=== PATIENT | female | born 1945 | race Caucasian/White ===

== ENCOUNTER 2019-12-08 13:43 | Outpatient (CLI) | payer MEDICARE, OTHER, SELFPAY ==
--- NOTE | ~2019-12-08 | US_ITS ---
EXAMINATION: US renal BI EXAM DATE: 12/08/2019 14:23 INDICATION: Stage III chronic kidney disease. TECHNIQUE: Multiple grayscale and Doppler images of the kidneys were obtained (by a technologist who performed the scan) and subsequently reviewed. Comparison is made to prior examination from 4. FINDINGS: There is bilateral renal cortical thinning. Right kidney: There is normal contour and echogenicity. It measures 7.1 x 4.1 x 4.7 centimeters. Th ere are no focal renal lesions identified. There is no hydronephrosis. Left kidney: There is normal contour and echogenicity. It measures 5.5 x 3.7 x 4.0 centimeters. The re are no focal renal lesions identified. There is no hydronephrosis. Bladder unremarkable. IMPRESSION: 1. Moderate renal atrophy, interval decrease in size compared to 2013. Reviewed, dictated and finalized at location A.
== END 2019-12-08 13:44 | disposition home or self-care (01) ==
PROVIDERS: PCP Family Medicine; Visit Provider Internal Medicine Nephrology
DX: N18.3 Chronic kidney disease, stage 3 (moderate) (principal); E78.5 Hyperlipidemia, unspecified; E11.9 Type 2 diabetes mellitus without complications; I10 Essential (primary) hypertension; N26.1 Atrophy of kidney (terminal)
CPT/HCPCS: 76775

== ENCOUNTER 2020-01-01 09:32 | Outpatient (CLI) | payer MEDICARE, OTHER, SELFPAY ==
[2020-01-01 11:23] LABS: Albumin Level 3.9 g/dL (3.5-5.1); Blood Urea Nitrogen 37 mg/dL (7-17); CRP < 0.5 mg/dL (<1.0); Calcium 9.3 mg/dL (8.4-10.2); Carbon Dioxide 27 mmol/L (22-30); Chloride 106 mmol/L (98-107); Estimated Glomerular Filt Rate 49; Glucose 92 mg/dL (65-105); Magnesium 1.7 mg/dL (1.6-2.3); Potassium 4.8 mmol/L (3.4-5.0); Sodium 138 mmol/L (137-145)
[2020-01-01 11:26] LABS: Complement C3 129 mg/dL (88-165)
[2020-01-01 11:48] LABS: Parathyroid Intact 142.4 pg/mL (7.5-53.5)
[2020-01-01 11:50] LABS: Creatinine Urine 58.6 mg/dL; Total Protein Urine Random 16 mg/dL
[2020-01-01 11:53] LABS: MALB Creatinine Ratio 85.8 mg/g (0-30); Microalbumin Urine Random 50.3 mg/L (0-16.7)
[2020-01-01 12:06] LABS: Vitamin D 25 Hydroxy 46.4 ng/mL
[2020-01-01 12:14] LABS: Erythrocyte Sedimentation Rate 55 mm/hr (0-20)
[2020-01-01 12:17] LABS: Hepatitis B Surface Antigen Negative (Negative)
[2020-01-01 12:23] LABS: HAV RESULT Negative (Negative); Hepatitis B Core IgM Result Negative (Negative)
[2020-01-01 12:35] LABS: Hepatitis B Surface Anti Res Negative; Hepatitis C Virus Antibody Negative (Negative)
[2020-01-05 00:20] LABS: Kappa\\Lambda Light Chains 1.08 (0.26-1.65); Lambda Light Chain 20.9 mg/L (5.7-26.3)
[2020-01-05 20:38] LABS: Complement Total CH50 60 U/mL (31-60)
[2020-01-05 21:40] LABS: Abnormal Protein Band 1 0.3 g/dL; Albumin 3.6 g/dL (3.8-4.8); Alpha 1 Globulin 0.3 g/dL (0.2-0.3); Alpha 2 Globulin 0.9 g/dL (0.5-0.9); Beta 1 Globulin 0.4 g/dL (0.4-0.6); Gamma Globulin 0.9 g/dL (0.8-1.7); Protein, Total 6.4 g/dL (6.1-8.1)
[2020-01-07 21:18] LABS: Hepatitis C RNA, Quant PCR <15 IU/mL
== END 2020-01-01 09:33 | disposition home or self-care (01) ==
LOC: ANHLAB 09:47
PROVIDERS: PCP Family Medicine; Visit Provider Internal Medicine Nephrology
DX: E78.5 Hyperlipidemia, unspecified (principal); N39.0 Urinary tract infection, site not specified; I77.6 Arteritis, unspecified; N25.0 Renal osteodystrophy; E55.9 Vitamin D deficiency, unspecified; I10 Essential (primary) hypertension; E11.9 Type 2 diabetes mellitus without complications; M19.90 Unspecified osteoarthritis, unspecified site
CPT/HCPCS: 36415; 80069; 80074; 82043; 82306; 82570; 83735; 83883; 83970; 84155; 84156; 84165; 85652; 86140; 86160; 86162; 86706; 87077; 87086; 87088; 87186; 87340; 87522

== ENCOUNTER 2020-01-19 13:10 | Outpatient (CLI) | payer MEDICARE, OTHER, SELFPAY ==
[2020-01-19 13:57] LABS: Basophils Percent Auto 0.6 % (0.2-1.2); Eosinophils Absolute Auto 0.2 K/mm3 (0-0.3); Eosinophils Percent Auto 3.2 % (0-4.4); Hematocrit 39.9 % (37.0-47.0); Immature Granulocyte Absolute 0.02 K/mm3 (0.00-0.031); Immature Granulocyte Percent A 0.3 % (0-0.5); Lymphocytes Absolute Auto 2.09 K/mm3 (0.9-3.2); Lymphocytes Percent Auto 30.7 % (18.3-44.2); Mean Corpuscular HGB Conc 32.6 g/dl (32-36); Mean Corpuscular Hemoglobin 32.7 pg (26-34); Mean Corpuscular Volume 100.5 fl (80-100); Mean Platelet Volume 10.3 fl (7.4-10.4); Monocytes Absolute Auto 0.5 K/mm3 (0.1-0.6); Monocytes Percent Auto 7.9 % (2.6-8.5); Neutrophils Absolute Auto 3.9 K/mm3 (1.3-6.7); Neutrophils Percent Auto 57.3 % (45.5-73.1); Platelet Count Result 160 k/mm3 (150-375); Red Blood Count 3.97 M/mm3 (4.2-5.4); Red Cell Distribution Width 13.2 % (11.5-14.5); White Blood Count 6.8 K/mm3 (4.5-10.0)
[2020-01-19 14:10] LABS: Alanine Aminotransferase 15 U/L (4-35); Albumin Level 4.1 g/dL (3.5-5.1); Alkaline Phosphatase 139 U/L (38-126); Aspartate Amino Transferase 26 U/L (14-36); Bilirubin,Total 0.3 mg/dL (0.2-1.3); Blood Urea Nitrogen 41 mg/dL (7-17); Calcium 9.5 mg/dL (8.4-10.2); Carbon Dioxide 28 mmol/L (22-30); Chloride 104 mmol/L (98-107); Estimated Glomerular Filt Rate 40; Glucose 107 mg/dL (65-105); Phosphorus 3.3 mg/dL (2.5-4.5); Potassium 5.1 mmol/L (3.4-5.0); Sodium 138 mmol/L (137-145)
[2020-01-19 14:18] LABS: Immunoglobulin A 165 mg/dL (70-400); Immunoglobulin G 876 mg/dL (700-1600); Immunoglobulin M 169 mg/dL (40-230)
[2020-01-23 04:00] LABS: Kappa\\Lambda Light Chains 1.13 (0.26-1.65); Lambda Light Chain 23.4 mg/L (5.7-26.3)
[2020-01-24 22:36] LABS: Abnormal Protein Band 1 0.2 g/dL; Albumin 3.6 g/dL (3.8-4.8); Alpha 1 Globulin 0.3 g/dL (0.2-0.3); Alpha 2 Globulin 0.9 g/dL (0.5-0.9); Beta 1 Globulin 0.4 g/dL (0.4-0.6); Gamma Globulin 0.8 g/dL (0.8-1.7); Protein, Total 6.2 g/dL (6.1-8.1)
== END 2020-01-19 13:11 | disposition home or self-care (01) ==
PROVIDERS: PCP Family Medicine; Visit Provider Internal Medicine Hematology & Oncology
DX: D47.2 Monoclonal gammopathy (principal)
CPT/HCPCS: 36415; 80053; 82784; 83735; 83883; 84100; 84155; 84165; 85025; 86334

== ENCOUNTER 2020-04-08 11:49 | Outpatient (NON) | payer MEDICARE, OTHER, SELFPAY ==
[2020-04-09 03:01] LABS: SARS-CoV-2 RNA PCR Negative
== END 2020-04-08 11:50 ==
PROVIDERS: PCP Family Medicine; Visit Provider Nurse Practitioner Family
DX: Z20.828 Contact with and (suspected) exposure to other viral communicable diseases (principal); R05 Cough
CPT/HCPCS: 87635; C9803; U0003

== ENCOUNTER 2020-06-11 13:15 | Outpatient (CLI) | payer MEDICARE, OTHER, SELFPAY ==
[2020-06-11 14:16] LABS: Albumin Level 3.8 g/dL (3.5-5.1); Anion Gap 6 mmol/L (8-16); Blood Urea Nitrogen 34 mg/dL (7-17); Calcium 9.9 mg/dL (8.4-10.2); Carbon Dioxide 32 mmol/L (22-30); Chloride 101 mmol/L (98-107); Estimated Glomerular Filt Rate 44; Glucose 93 mg/dL (65-105); Magnesium 1.8 mg/dL (1.6-2.3); Phosphorus 3.4 mg/dL (2.5-4.5); Potassium 4.6 mmol/L (3.4-5.0); Sodium 139 mmol/L (137-145)
[2020-06-11 14:31] LABS: Parathyroid Intact 139.7 pg/mL (7.5-53.5)
[2020-06-11 14:58] LABS: Creatinine Urine 66.4 mg/dL; Total Protein Urine Random 15 mg/dL; Ur Ttl Prot Creatinine Ratio 0.23 mg/mg (0-0.20)
[2020-06-11 15:04] LABS: MALB Creatinine Ratio 76.8 mg/g (0-30)
[2020-06-11 15:15] LABS: Vitamin D 25 Hydroxy 41.2 ng/mL
== END 2020-06-11 13:16 | disposition home or self-care (01) ==
PROVIDERS: PCP Family Medicine; Visit Provider Internal Medicine Nephrology
DX: E78.5 Hyperlipidemia, unspecified (principal); N25.0 Renal osteodystrophy; E55.9 Vitamin D deficiency, unspecified; Z01.84 Encounter for antibody response examination
CPT/HCPCS: 36415; 80069; 82043; 82306; 82570; 83735; 83970; 84156; 86769

== ENCOUNTER 2020-08-02 14:02 | Outpatient (CLI) | payer MEDICARE, OTHER, SELFPAY ==
[2020-08-02 15:42] LABS: Basophils Absolute Auto 0.1 K/mm3 (0.0-0.1); Basophils Percent Auto 0.6 % (0.2-1.2); Eosinophils Absolute Auto 0.2 K/mm3 (0-0.3); Eosinophils Percent Auto 2.9 % (0-4.4); Hematocrit 39.3 % (37.0-47.0); Hemoglobin 13.3 g/dL (12.0-15.0); Immature Granulocyte Absolute 0.02 K/mm3 (0.00-0.031); Immature Granulocyte Percent A 0.2 % (0-0.5); Lymphocytes Absolute Auto 2.35 K/mm3 (0.9-3.2); Lymphocytes Percent Auto 27.9 % (18.3-44.2); Mean Corpuscular HGB Conc 33.8 g/dl (32-36); Mean Corpuscular Hemoglobin 33.3 pg (26-34); Mean Corpuscular Volume 98.3 fl (80-100); Mean Platelet Volume 10.7 fl (7.4-10.4); Monocytes Absolute Auto 0.6 K/mm3 (0.1-0.6); Monocytes Percent Auto 7.5 % (2.6-8.5); Neutrophils Absolute Auto 5.1 K/mm3 (1.3-6.7); Neutrophils Percent Auto 60.9 % (45.5-73.1); Platelet Count Result 184 k/mm3 (150-375); Red Cell Distribution Width 12.4 % (11.5-14.5); White Blood Count 8.4 K/mm3 (4.5-10.0)
[2020-08-02 15:47] LABS: Alanine Aminotransferase 24 U/L (4-35); Alkaline Phosphatase 144 U/L (38-126); Anion Gap 6 mmol/L (8-16); Aspartate Amino Transferase 35 U/L (14-36); Bilirubin,Total 0.4 mg/dL (0.2-1.3); Blood Urea Nitrogen 32 mg/dL (7-17); Calcium 9.9 mg/dL (8.4-10.2); Carbon Dioxide 31 mmol/L (22-30); Chloride 102 mmol/L (98-107); Estimated Glomerular Filt Rate 44; Glucose 106 mg/dL (65-105); Potassium 4.2 mmol/L (3.4-5.0); Sodium 139 mmol/L (137-145)
[2020-08-02 15:54] LABS: Immunoglobulin A 168 mg/dL (70-400); Immunoglobulin G 896 mg/dL (700-1600); Immunoglobulin M 173 mg/dL (40-230)
[2020-08-04 00:46] LABS: Kappa\\Lambda Light Chains 1.07 (0.26-1.65); Lambda Light Chain 24.5 mg/L (5.7-26.3)
[2020-08-06 00:05] LABS: Albumin 3.8 g/dL (3.8-4.8); Alpha 1 Globulin 0.4 g/dL (0.2-0.3); Alpha 2 Globulin 1.1 g/dL (0.5-0.9); Beta 1 Globulin 0.4 g/dL (0.4-0.6); Protein, Total 7.1 g/dL (6.1-8.1)
== END 2020-08-02 14:03 | disposition home or self-care (01) ==
PROVIDERS: PCP Family Medicine; Visit Provider Internal Medicine Hematology & Oncology
DX: D47.2 Monoclonal gammopathy (principal)
CPT/HCPCS: 36415; 80053; 82784; 83883; 84155; 84165; 85025; 86334

== ENCOUNTER 2020-09-30 12:09 | Outpatient (CLI) | payer MEDICARE, OTHER, SELFPAY ==
[2020-09-30 12:50] LABS: Basophils Percent Auto 0.3 % (0.2-1.2); Eosinophils Absolute Auto 0.2 K/mm3 (0-0.3); Hematocrit 40.3 % (37.0-47.0); Hemoglobin 13.5 g/dL (12.0-15.0); Immature Granulocyte Absolute 0.03 K/mm3 (0.00-0.031); Immature Granulocyte Percent A 0.3 % (0-0.5); Lymphocytes Absolute Auto 2.21 K/mm3 (0.9-3.2); Lymphocytes Percent Auto 25.5 % (18.3-44.2); Mean Corpuscular HGB Conc 33.5 g/dl (32-36); Mean Corpuscular Hemoglobin 33.6 pg (26-34); Mean Corpuscular Volume 100.2 fl (80-100); Mean Platelet Volume 10.7 fl (7.4-10.4); Monocytes Absolute Auto 0.7 K/mm3 (0.1-0.6); Monocytes Percent Auto 7.6 % (2.6-8.5); Neutrophils Absolute Auto 5.6 K/mm3 (1.3-6.7); Neutrophils Percent Auto 64.3 % (45.5-73.1); Platelet Count Result 157 k/mm3 (150-375); Red Blood Count 4.02 M/mm3 (4.2-5.4); Red Cell Distribution Width 12.4 % (11.5-14.5); White Blood Count 8.7 K/mm3 (4.5-10.0)
[2020-09-30 13:03] LABS: Albumin Level 4.1 g/dL (3.5-5.1); Anion Gap 4 mmol/L (8-16); Blood Urea Nitrogen 27 mg/dL (7-17); Calcium 9.9 mg/dL (8.4-10.2); Carbon Dioxide 33 mmol/L (22-30); Chloride 105 mmol/L (98-107); Estimated Glomerular Filt Rate 40; Glucose 116 mg/dL (65-105); Magnesium 1.8 mg/dL (1.6-2.3); Phosphorus 2.9 mg/dL (2.5-4.5); Potassium 5.8 mmol/L (3.4-5.0); Sodium 142 mmol/L (137-145)
[2020-09-30 13:13] LABS: Parathyroid Intact 166.2 pg/mL (7.5-53.5)
[2020-09-30 14:02] LABS: Vitamin D 25 Hydroxy 42.2 ng/mL
[2020-09-30 14:06] LABS: Creatinine Urine 33.3 mg/dL
[2020-09-30 14:11] LABS: MALB Creatinine Ratio 131.8 mg/g (0-30); Microalbumin Urine Random 43.9 mg/L (0-16.7)
== END 2020-09-30 12:10 | disposition home or self-care (01) ==
LOC: ANHLAB 12:14
PROVIDERS: PCP Family Medicine; Visit Provider Internal Medicine Nephrology
DX: E55.9 Vitamin D deficiency, unspecified (principal); D63.1 Anemia in chronic kidney disease; N25.0 Renal osteodystrophy
CPT/HCPCS: 36415; 80069; 82043; 82306; 83735; 83970; 85025

== ENCOUNTER 2020-11-23 12:57 | Outpatient (CLI) | payer MEDICARE, OTHER, SELFPAY ==
[2020-11-23 13:44] LABS: Albumin Level 3.9 g/dL (3.5-5.1); Anion Gap 4 mmol/L (8-16); Blood Urea Nitrogen 23 mg/dL (7-17); Calcium 9.7 mg/dL (8.4-10.2); Carbon Dioxide 32 mmol/L (22-30); Chloride 105 mmol/L (98-107); Estimated Glomerular Filt Rate 44; Glucose 112 mg/dL (65-105); Magnesium 1.6 mg/dL (1.6-2.3); Phosphorus 3.1 mg/dL (2.5-4.5); Potassium 4.4 mmol/L (3.4-5.0); Sodium 141 mmol/L (137-145)
== END 2020-11-23 12:58 | disposition home or self-care (01) ==
PROVIDERS: PCP Family Medicine; Visit Provider Internal Medicine Nephrology
DX: I12.9 Hypertensive chronic kidney disease with stage 1 through stage 4 chronic kidney disease, or unspecified chronic kidney disease (principal); N18.32 Chronic kidney disease, stage 3b; E78.5 Hyperlipidemia, unspecified; M19.90 Unspecified osteoarthritis, unspecified site; D47.2 Monoclonal gammopathy; E11.22 Type 2 diabetes mellitus with diabetic chronic kidney disease
CPT/HCPCS: 36415; 80069; 83735

== ENCOUNTER 2021-05-05 13:29 | Outpatient (CLI) | payer MEDICARE, OTHER, SELFPAY ==
[2021-05-05 14:29] LABS: Albumin Level 3.9 g/dL (3.5-5.1); Anion Gap 7 mmol/L (8-16); Blood Urea Nitrogen 27 mg/dL (7-17); Carbon Dioxide 30 mmol/L (22-30); Chloride 103 mmol/L (98-107); Estimated Glomerular Filt Rate 44; Glucose 119 mg/dL (65-110); Magnesium 1.7 mg/dL (1.6-2.3); Phosphorus 3.3 mg/dL (2.5-4.5); Sodium 140 mmol/L (137-145)
== END 2021-05-05 13:30 | disposition home or self-care (01) ==
LOC: ANHLAB 13:34
PROVIDERS: PCP Family Medicine; Visit Provider Internal Medicine Nephrology
DX: I10 Essential (primary) hypertension (principal); E11.9 Type 2 diabetes mellitus without complications; E78.5 Hyperlipidemia, unspecified; M19.90 Unspecified osteoarthritis, unspecified site; D47.2 Monoclonal gammopathy; N18.32 Chronic kidney disease, stage 3b
CPT/HCPCS: 36415; 80069; 83735

== ENCOUNTER 2021-05-18 13:40 | Outpatient (CLI) | payer MEDICARE, OTHER, SELFPAY | END 2021-05-18 13:41 | disposition home or self-care (01) | LOC: ANHAUDIO 13:41 | PROVIDERS: PCP Family Medicine; Visit Provider Physician Assistant Medical | DX: H91.93 Unspecified hearing loss, bilateral (principal) | CPT/HCPCS: 99199 ==

== ENCOUNTER 2021-11-06 13:13 | Outpatient (CLI) | payer MEDICARE, OTHER, SELFPAY ==
[2021-11-06 14:14] LABS: Hematocrit 39.3 % (37.0-47.0); Hemoglobin 13.2 g/dL (12.0-15.0); Mean Corpuscular HGB Conc 33.6 g/dl (32-36); Mean Corpuscular Hemoglobin 33.8 pg (26-34); Mean Corpuscular Volume 100.5 fl (80-100); Mean Platelet Volume 12.1 fl (7.4-10.4); Platelet Count Result 152 k/mm3 (150-375); Red Blood Count 3.91 M/mm3 (4.2-5.4); Red Cell Distribution Width 13.1 % (11.5-14.5); White Blood Count 7.2 K/mm3 (4.5-10.0)
[2021-11-06 14:25] LABS: Albumin Level 4.2 g/dL (3.5-5.1); Anion Gap 6 mmol/L (8-16); Blood Urea Nitrogen 29 mg/dL (7-17); Calcium 9.9 mg/dL (8.4-10.2); Carbon Dioxide 31 mmol/L (22-30); Chloride 103 mmol/L (98-107); Estimated Glomerular Filt Rate 44; Glucose 108 mg/dL (65-110); Magnesium 1.4 mg/dL (1.6-2.3); Phosphorus 3.5 mg/dL (2.5-4.5); Potassium 4.9 mmol/L (3.4-5.0); Sodium 140 mmol/L (137-145)
[2021-11-06 14:27] LABS: Creatinine Urine 87.9 mg/dL; Total Protein Urine Random 20 mg/dL; Ur Ttl Prot Creatinine Ratio 0.23 mg/mg (0-0.20)
[2021-11-06 14:31] LABS: MALB Creatinine Ratio 67.5 mg/g (0-30); Microalbumin Urine Random 59.3 mg/L (0-16.7)
[2021-11-06 14:43] LABS: Vitamin D 25 Hydroxy 44.7 ng/mL
== END 2021-11-06 13:14 | disposition home or self-care (01) ==
LOC: ANHLAB 13:18
PROVIDERS: PCP Family Medicine; Visit Provider Internal Medicine Nephrology
DX: N18.32 Chronic kidney disease, stage 3b (principal); I25.84 Coronary atherosclerosis due to calcified coronary lesion; I10 Essential (primary) hypertension; E11.22 Type 2 diabetes mellitus with diabetic chronic kidney disease; E78.00 Pure hypercholesterolemia, unspecified; D47.2 Monoclonal gammopathy
CPT/HCPCS: 36415; 80069; 82043; 82306; 82570; 82607; 83735; 84156; 85027

== ENCOUNTER 2022-02-13 15:23 | Outpatient (CLI) | payer MEDICARE, OTHER, SELFPAY ==
[2022-02-13 21:35] LABS: Albumin Level 4.5 g/dL (3.5-5.1); Anion Gap 10 mmol/L (8-16); Blood Urea Nitrogen 33 mg/dL (7-17); Calcium 10.2 mg/dL (8.4-10.2); Carbon Dioxide 32 mmol/L (22-30); Chloride 98 mmol/L (98-107); Estimated Glomerular Filt Rate 37; Glucose 127 mg/dL (65-110); Magnesium 2.5 mg/dL (1.6-2.3); Phosphorus 3.3 mg/dL (2.5-4.5); Potassium 4.2 mmol/L (3.4-5.0); Sodium 140 mmol/L (137-145)
== END 2022-02-13 15:24 | disposition home or self-care (01) ==
PROVIDERS: PCP Family Medicine; Visit Provider Internal Medicine Nephrology
DX: N18.32 Chronic kidney disease, stage 3b (principal); I25.84 Coronary atherosclerosis due to calcified coronary lesion; I10 Essential (primary) hypertension; E11.22 Type 2 diabetes mellitus with diabetic chronic kidney disease; E78.00 Pure hypercholesterolemia, unspecified; D47.2 Monoclonal gammopathy
CPT/HCPCS: 36415; 80069; 83735

== ENCOUNTER 2022-08-20 13:32 | Outpatient (CLI) | payer MEDICARE, OTHER, SELFPAY ==
[2022-08-20 14:22] LABS: Hemoglobin 13.7 g/dL (12.0-15.0); Mean Corpuscular HGB Conc 33.4 g/dl (32-36); Mean Corpuscular Hemoglobin 34.7 pg (26-34); Mean Corpuscular Volume 103.8 fl (80-100); Mean Platelet Volume 11.6 fl (7.4-10.4); Platelet Count Result 160 k/mm3 (150-375); Red Blood Count 3.95 M/mm3 (4.2-5.4); Red Cell Distribution Width 13.3 % (11.5-14.5); White Blood Count 7.7 K/mm3 (4.5-10.0)
[2022-08-20 14:29] LABS: Albumin Level 4.6 g/dL (3.5-5.1); Anion Gap 9 mmol/L (8-16); Blood Urea Nitrogen 37 mg/dL (7-17); Calcium 9.9 mg/dL (8.4-10.2); Carbon Dioxide 29 mmol/L (22-30); Chloride 95 mmol/L (98-107); Estimated Glomerular Filt Rate 36; Glucose 98 mg/dL (65-110); Magnesium 2.3 mg/dL (1.6-2.3); Phosphorus 3.5 mg/dL (2.5-4.5); Potassium 3.8 mmol/L (3.4-5.0); Sodium 133 mmol/L (137-145)
[2022-08-20 14:40] LABS: Parathyroid Intact 116.7 pg/mL (7.5-53.5)
[2022-08-20 15:16] LABS: Vitamin D 25 Hydroxy 47.7 ng/mL
== END 2022-08-20 13:33 | disposition home or self-care (01) ==
PROVIDERS: PCP Family Medicine; Visit Provider Internal Medicine Nephrology
DX: N18.32 Chronic kidney disease, stage 3b (principal); I25.84 Coronary atherosclerosis due to calcified coronary lesion; E11.22 Type 2 diabetes mellitus with diabetic chronic kidney disease; E78.00 Pure hypercholesterolemia, unspecified; D47.2 Monoclonal gammopathy
CPT/HCPCS: 36415; 80069; 82306; 83735; 83970; 85027

== ENCOUNTER 2022-08-21 10:40 | Outpatient (NON) | payer MEDICARE, OTHER, SELFPAY ==
[2022-08-21 12:13] LABS: Creatinine Urine 46.5 mg/dL; Total Protein Urine Random 9 mg/dL; Ur Ttl Prot Creatinine Ratio 0.19 mg/mg (0-0.20)
[2022-08-21 12:38] LABS: MALB Creatinine Ratio < 12.9 mg/g (0-30); Microalbumin Urine Random < 6.0 mg/L (0-16.7)
== END 2022-08-21 10:41 | disposition home or self-care (01) ==
PROVIDERS: PCP Family Medicine; Visit Provider Internal Medicine Nephrology
DX: N18.32 Chronic kidney disease, stage 3b (principal); I25.84 Coronary atherosclerosis due to calcified coronary lesion; E11.22 Type 2 diabetes mellitus with diabetic chronic kidney disease; E78.00 Pure hypercholesterolemia, unspecified; D47.2 Monoclonal gammopathy
CPT/HCPCS: 82043; 82570; 84156

== ENCOUNTER 2023-02-08 13:18 | Outpatient (CLI) | payer MEDICARE, OTHER, SELFPAY ==
[2023-02-08 14:43] LABS: Hematocrit 39.3 % (37.0-47.0); Hemoglobin 12.9 g/dL (12.0-15.0); Mean Corpuscular HGB Conc 32.8 g/dl (32-36); Mean Corpuscular Hemoglobin 34.6 pg (26-34); Mean Corpuscular Volume 105.4 fl (80-100); Mean Platelet Volume 11.8 fl (7.4-10.4); Platelet Count Result 152 k/mm3 (150-375); Red Blood Count 3.73 M/mm3 (4.2-5.4); Red Cell Distribution Width 12.7 % (11.5-14.5); White Blood Count 5.7 K/mm3 (4.5-10.0)
[2023-02-08 14:53] LABS: Hemoglobin A1C 5.2 % (<5.7)
[2023-02-08 14:54] LABS: Albumin Level 4.1 g/dL (3.5-5.1); Anion Gap 6 mmol/L (8-16); Blood Urea Nitrogen 35 mg/dL (7-17); Calcium 9.8 mg/dL (8.4-10.2); Carbon Dioxide 29 mmol/L (22-30); Chloride 100 mmol/L (98-107); Cholesterol 170 mg/dL (0-200); Estimated Glomerular Filt Rate 44; Glucose 87 mg/dL (65-110); HDL Direct 58 mg/dL; Magnesium 1.9 mg/dL (1.6-2.3); Phosphorus 3.5 mg/dL (2.5-4.5); Potassium 3.8 mmol/L (3.4-5.0); Sodium 135 mmol/L (137-145); Triglycerides 150 mg/dL (<150)
[2023-02-08 15:05] LABS: LDL Cholesterol Direct 76 mg/dL
[2023-02-11 15:50] LABS: Abnormal Protein Band 1 0.4 g/dL; Albumin 3.7 g/dL (3.8-4.8); Alpha 1 Globulin 0.3 g/dL (0.2-0.3); Alpha 2 Globulin 0.9 g/dL (0.5-0.9); Beta 1 Globulin 0.4 g/dL (0.4-0.6); Gamma Globulin 0.9 g/dL (0.8-1.7); Protein, Total 6.5 g/dL (6.1-8.1)
[2023-02-12 09:33] LABS: Kappa\\Lambda Light Chains 1.06 (0.26-1.65); Lambda Light Chain 22.2 mg/L (5.7-26.3)
== END 2023-02-08 13:19 | disposition home or self-care (01) ==
PROVIDERS: PCP Family Medicine; Visit Provider Internal Medicine Nephrology
DX: E11.22 Type 2 diabetes mellitus with diabetic chronic kidney disease (principal); I12.9 Hypertensive chronic kidney disease with stage 1 through stage 4 chronic kidney disease, or unspecified chronic kidney disease; N18.32 Chronic kidney disease, stage 3b; D47.2 Monoclonal gammopathy; I25.84 Coronary atherosclerosis due to calcified coronary lesion; E78.00 Pure hypercholesterolemia, unspecified
CPT/HCPCS: 36415; 80061; 80069; 83036; 83735; 83883; 84155; 84165; 85027

== ENCOUNTER 2023-02-09 10:35 | Outpatient (CLI) | payer MEDICARE, OTHER, SELFPAY ==
[2023-02-09 11:08] LABS: Appearance Urine Clear (Clear); Bacteria Urine 4+ /hpf; Bilirubin Urine Negative (Negative); Blood Urine Negative (Negative); Color Urine Yellow (Yellow); Glucose Urine UA Negative (Negative); Ketones Urine Negative (Negative); Leukocyte Esterase Ur Trace LEU/UL (NEGATIVE); Nitrate Urine Positive (Negative); Non Pathogenic Casts 0-2; Protein Urine Negative (Negative); RBC Urine 0-2 /hpf (0-2); Squamous Epithelial Cell Urine None seen /hpf (Few); Urobilinogen Urine 0.2 mg/dL (<2.0); WBC Urine 0-5 /hpf (0-3)
[2023-02-09 11:17] LABS: Add Urine Microscopic? YES
== END 2023-02-09 10:36 | disposition home or self-care (01) ==
PROVIDERS: PCP Family Medicine; Visit Provider Internal Medicine Nephrology
DX: I12.9 Hypertensive chronic kidney disease with stage 1 through stage 4 chronic kidney disease, or unspecified chronic kidney disease (principal); N18.32 Chronic kidney disease, stage 3b; I25.84 Coronary atherosclerosis due to calcified coronary lesion; E11.22 Type 2 diabetes mellitus with diabetic chronic kidney disease; E78.00 Pure hypercholesterolemia, unspecified
CPT/HCPCS: 81001

== ENCOUNTER 2023-02-11 13:10 | Outpatient (CLI) | payer MEDICARE, OTHER, SELFPAY ==
[2023-02-11 14:14] LABS: Appearance Urine Clear (Clear); Bacteria Urine 4+ /hpf; Bilirubin Urine Negative (Negative); Blood Urine Negative (Negative); Color Urine Yellow (Yellow); Glucose Urine UA Negative (Negative); Ketones Urine Negative (Negative); Leukocyte Esterase Ur Trace LEU/UL (NEGATIVE); Nitrate Urine Negative (Negative); Non Pathogenic Casts 0-2; Protein Urine Negative (Negative); RBC Urine 0-2 /hpf (0-2); Specific Grav Ur 1.008 (1.001-1.035); Squamous Epithelial Cell Urine None seen /hpf (Few); Urobilinogen Urine 0.2 mg/dL (<2.0); WBC Urine 0-5 /hpf (0-3)
[2023-02-11 14:24] LABS: Add Urine Microscopic? YES
[2023-02-11 18:22] LABS: Total Protein Urine Random 12 mg/dL
[2023-02-11 18:30] LABS: Creatinine Urine 22.7 mg/dL; Ur Ttl Prot Creatinine Ratio 0.53 mg/mg (0-0.20)
[2023-02-11 19:03] LABS: Microalbumin Urine Random < 6.0 mg/L (0-16.7)
== END 2023-02-11 13:11 | disposition home or self-care (01) ==
PROVIDERS: PCP Family Medicine; Visit Provider Internal Medicine Nephrology
DX: E11.22 Type 2 diabetes mellitus with diabetic chronic kidney disease (principal); I12.9 Hypertensive chronic kidney disease with stage 1 through stage 4 chronic kidney disease, or unspecified chronic kidney disease; E78.00 Pure hypercholesterolemia, unspecified; N18.32 Chronic kidney disease, stage 3b; I25.84 Coronary atherosclerosis due to calcified coronary lesion; D47.2 Monoclonal gammopathy
CPT/HCPCS: 81001; 82043; 82570; 84156

== ENCOUNTER 2023-09-03 10:49 | Outpatient (CLI) | payer MEDICARE, OTHER, SELFPAY ==
[2023-09-03 11:54] LABS: Basophils Absolute Auto 0.1 K/mm3 (0.0-0.1); Basophils Percent Auto 0.9 % (0.2-1.2); Eosinophils Absolute Auto 0.2 K/mm3 (0-0.3); Eosinophils Percent Auto 2.2 % (0-4.4); Hematocrit 38.7 % (37.0-47.0); Hemoglobin 12.7 g/dL (12.0-15.0); Immature Granulocyte Absolute 0.01 K/mm3 (0.00-0.031); Immature Granulocyte Percent A 0.1 % (0-0.5); Lymphocytes Absolute Auto 2.09 K/mm3 (0.9-3.2); Lymphocytes Percent Auto 31.1 % (18.3-44.2); Mean Corpuscular HGB Conc 32.8 g/dl (32-36); Mean Corpuscular Hemoglobin 34.8 pg (26-34); Mean Platelet Volume 12.2 fl (7.4-10.4); Monocytes Absolute Auto 0.5 K/mm3 (0.1-0.6); Monocytes Percent Auto 7.3 % (2.6-8.5); Neutrophils Absolute Auto 3.9 K/mm3 (1.3-6.7); Neutrophils Percent Auto 58.4 % (45.5-73.1); Platelet Count Result 135 k/mm3 (150-375); Red Blood Count 3.65 M/mm3 (4.2-5.4); Red Cell Distribution Width 12.4 % (11.5-14.5); White Blood Count 6.7 K/mm3 (4.5-10.0)
[2023-09-03 12:06] LABS: Albumin Level 4.1 g/dL (3.5-5.1); Anion Gap 6 mmol/L (8-16); Blood Urea Nitrogen 46 mg/dL (7-17); Carbon Dioxide 30 mmol/L (22-30); Chloride 101 mmol/L (98-107); Estimated Glomerular Filt Rate 40; Glucose 100 mg/dL (65-110); Magnesium 2.1 mg/dL (1.6-2.3); Phosphorus 3.4 mg/dL (2.5-4.5); Potassium 4.1 mmol/L (3.4-5.0); Sodium 137 mmol/L (137-145)
[2023-09-03 12:15] LABS: Parathyroid Intact 129.2 pg/mL (7.5-53.5)
[2023-09-03 12:43] LABS: Vitamin D 25 Hydroxy 31.8 ng/mL
[2023-09-03 12:44] LABS: Creatinine Urine 49.2 mg/dL; Total Protein Urine Random 6 mg/dL; Ur Ttl Prot Creatinine Ratio 0.12 mg/mg (0-0.20)
[2023-09-03 12:58] LABS: MALB Creatinine Ratio < 12.2 mg/g (0-30); Microalbumin Urine Random < 6.0 mg/L (0-16.7)
[2023-09-03 13:52] LABS: Folic Acid > 20.0 ng/mL (2.76->20); Vitamin B12 > 1000.0 pg/mL (239-931)
[2023-09-05 14:56] LABS: Abnormal Protein Band 1 0.3 g/dL; Albumin 3.8 g/dL (3.8-4.8); Alpha 1 Globulin 0.3 g/dL (0.2-0.3); Alpha 2 Globulin 0.8 g/dL (0.5-0.9); Beta 1 Globulin 0.4 g/dL (0.4-0.6); Gamma Globulin 0.8 g/dL (0.8-1.7); Protein, Total 6.4 g/dL (6.1-8.1)
[2023-09-06 21:22] LABS: Kappa\\Lambda Light Chains 1.19 (0.26-1.65); Lambda Light Chain 21.5 mg/L (5.7-26.3)
== END 2023-09-03 10:50 | disposition home or self-care (01) ==
PROVIDERS: PCP Family Medicine; Visit Provider Internal Medicine Nephrology
DX: E11.22 Type 2 diabetes mellitus with diabetic chronic kidney disease (principal); I12.9 Hypertensive chronic kidney disease with stage 1 through stage 4 chronic kidney disease, or unspecified chronic kidney disease; N18.32 Chronic kidney disease, stage 3b; I25.84 Coronary atherosclerosis due to calcified coronary lesion; E78.00 Pure hypercholesterolemia, unspecified; D47.2 Monoclonal gammopathy; D75.89 Other specified diseases of blood and blood-forming organs
CPT/HCPCS: 36415; 80069; 82043; 82306; 82570; 82607; 82728; 82746; 83735; 83883; 83970; 84155; 84156; 84165; 84443; 85025

== ENCOUNTER 2023-11-20 00:26 | Day surgery (SDC) | payer MEDICARE, OTHER, SELFPAY ==
[2023-11-19 13:21] VITALS: BMI 30.3
[2023-11-20] VITALS (16 sets, daily range): BP systolic 108–142; BP diastolic 42–57; PULSE 55–58; RESP 14–18; TEMP 36.4–36.5; O2SAT 94–98
[2023-11-20 09:24] LABS: Basophils Absolute Auto 0.1 K/mm3 (0.0-0.1); Basophils Percent Auto 1.2 % (0.2-1.2); Eosinophils Absolute Auto 0.2 K/mm3 (0-0.3); Hematocrit 38.4 % (37.0-47.0); Hemoglobin 12.9 g/dL (12.0-15.0); Immature Granulocyte Absolute 0.01 K/mm3 (0.00-0.031); Immature Granulocyte Percent A 0.2 % (0-0.5); Lymphocytes Absolute Auto 2.01 K/mm3 (0.9-3.2); Lymphocytes Percent Auto 40.8 % (18.3-44.2); Mean Corpuscular HGB Conc 33.6 g/dl (32-36); Mean Corpuscular Hemoglobin 35.1 pg (26-34); Mean Corpuscular Volume 104.3 fl (80-100); Mean Platelet Volume 11.9 fl (7.4-10.4); Monocytes Absolute Auto 0.5 K/mm3 (0.1-0.6); Monocytes Percent Auto 10.8 % (2.6-8.5); Neutrophils Absolute Auto 2.2 K/mm3 (1.3-6.7); Platelet Count Result 143 k/mm3 (150-375); Red Blood Count 3.68 M/mm3 (4.2-5.4); Red Cell Distribution Width 13.2 % (11.5-14.5); White Blood Count 4.9 K/mm3 (4.5-10.0)
[2023-11-20 09:37] LABS: Anion Gap 6 mmol/L (4-12); Blood Urea Nitrogen 42 mg/dL (7-17); Calcium 10.2 mg/dL (8.4-10.2); Carbon Dioxide 29 mmol/L (22-30); Chloride 106 mmol/L (98-107); Estimated CRCL calculation 31 ml/min; Estimated Glomerular Filt Rate 43; Glucose 92 mg/dL (65-110); Potassium 4.1 mmol/L (3.4-5.0); Sodium 141 mmol/L (137-145)
--- NOTE | 2023-11-20 10:24 | WPDHPUPDATE1 ---
History and Physical Update Update Date/Time: 11/20/23 10:24 History and Physical has been reviewed, including an updated exam of the patient. There are NO changes in the patient's condition. Risks, benefits, and alternatives have been discussed and questions answered. Patient agrees to proceed with procedure.
--- NOTE | 2023-11-20 10:24 | WPDMODSED ---
Moderate Sedation Note-Pt Data Patient Data Diagnosis: Coronary artery disease Present Complaint: Coronary artery disease Procedure to be performed/Plan: Coronary angiography, left heart cath, +/- PCI Allergies Allergy/AdvReac Type Severity Reaction Status Date / Time codeine Allergy Unknown Unknown Verified 11/19/23 13:11 tramadol Allergy Unknown Unknown Verified 11/19/23 13:11 escitalopram AdvReac Intermediate Rash Verified 11/19/23 13:11 Home Medications Medication Instructions Recorded Confirmed Type acetaminophen 500 mg capsule 1,000 mg PO .bedtime 04/20/20 11/19/23 History (Tylophen) carvedilol 6.25 mg tablet 6.25 mg PO BID 04/20/20 11/19/23 History amlodipine 10 mg tablet 10 mg PO DAILY 06/28/20 11/19/23 History aspirin 81 mg capsule 81 mg PO DAILY 10/16/21 11/19/23 History chlorthalidone 25 mg tablet 50 mg PO DAILY 08/15/22 11/19/23 History albuterol sulfate 90 mcg/actuation 1 inh inhalation Q4H PRN shortness 09/20/22 11/19/23 Rx aerosol inhaler (ProAir HFA) of breath or wheezing #6.7 grams magnesium oxide 400 mg PO DAILY 03/11/23 11/19/23 History pravastatin 40 mg tablet 40 mg PO QHS #90 tabs 08/17/23 11/19/23 Rx econazole 1 % topical cream 1 applic topical DAILY #85 grams 09/02/23 11/19/23 Rx vit C 250 mg-vit E 200 unit-zinc 1 tablet PO .qd 10/09/23 11/19/23 History 12.5 mg-copy room technician 1 mg-lut-zeax chew tablet (ICaps AREDS2 (copper citrate)) fluoxetine 20 mg capsule (Prozac) 20 mg PO DAILY #90 caps 10/14/23 11/19/23 Rx carboxymethyl 0.5 %-glycerin 1 1 drp EACH EYE QHS 10/15/23 11/19/23 History %-polysorb 80 0.5 %-PF eye dropperette (Refresh Optive Alex-3 (PF)) gabapentin 100 mg capsule 100 mg PO QHS #30 caps 11/04/23 11/19/23 Rx lorazepam 2 mg tablet 2 mg PO .bedtime PRN anxiety #30 11/08/23 11/19/23 Rx tabs Sedation/Anesthesia: No previous sedation/anesthesia problems (including family history). [facility] Past Medical History Medical History (Reviewed 11/20/23 @ 10: by Marilu Lynch MD) Anxiety disorder, unspecified BMI 31.0-31.9,adult CAD in [place] artery Chronic pain of both knees Essential (primary) hypertension Hearing loss of both ears Hypertensive chronic kidney disease with stage 1 through stage 4 chronic kidney disease, or unspecified chronic kidney disease Low kidney function Mixed hyperlipidemia Urticaria Family History Family History (Reviewed 11/20/23 @ 10: by Marilu Lynch MD) Father Amputation of leg Diabetes mellitus Mother Rheumatoid arthritis Social History Social History (Reviewed 11/20/23 @ : by Marilu Lynch MD) Smoking status: Never smoker Second hand tobacco smoke exposure: Yes Alcohol intake: never Substance use: never Substance use type: does not use Do You Feel Safe in your Home?: Yes Lack of Transportation: No Lack of Food: Sometimes True Current Housing: I Have Housing Concerned About Future Housing: No Difficulty Paying Gas/Electric Bills: No Difficulty Paying for Meds: No Currently Unemployed: No Education: High School Diploma/GED Difficulty w/ Childcare or Family Care: No Living arrangements: alone Occupation/Education: retired 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 Gender identity (if verbalized by the patient): Female Spiritual care concerns: No Mod Sed Physical Exam Physical Exam Pre Procedural Exam: Normal: Appearance, Lungs, Heart Rate, Heart Rhythm, Neuro Exam, Extremities and Skin Hours since solid foods: 12 Hours since liquid intake: 8 Mallampati Classification: class II Internal Medicine - PN: Obj Da Vital Signs Vital Signs: Vital Signs - 24 hr 11/20/23 09:09 Temperature 36.4 C L Pulse Rate 56 L Respiratory Rate 14 Blood Pressure 142/53 H Pulse Oximetry 98 Oxygen Delivery Room Air Labs 11/20/23 09:00 11/20/23 09:00 Labs: Laboratory Results - last 24 hr 11/20/23
--- NOTE | 2023-11-20 10:25 | WPDCARDPROC ---
Cardiac Cath Procedure Note Date of procedure:: 11/20/23 Performing physician:: CATHETERIZATION LABORATORY REPORT Procedure Date: 11/20/2023 Solid Waste Truck Driver: Marilu Lynch M.D., [facility]? Referring Physician: José Miguel Vallejo M.D. ? Anesthesia: Versed and Fentanyl were ordered and given in my presence at 10:28, procedure ended at 11:00. Supervision of nurse monitored moderate sedation with Versed and Fentanyl was provided for 32 minutes. Total of Versed 1mg and Fentanyl 25mcg were administered by the Transmission Technician RN Macrina Nichole. Pre-op Diagnosis: Coronary artery disease. Post-op Diagnosis: 1. The third diagonal branch has ostial 70% stenosis, however, is a small caliber vessel. 2. The left circumflex artery is the dominant vessel. The ostium has mild disease. The mid portion of the LCX has mild diffuse disease. The distal LCX has a moderate 50% stenosis (angiographically unchanged compared to prior cardiac catheterization from 2018). The obtuse marginal branch has an early bifurcation into two branches -- the upper branch has an ostial 80% stenosis however is a small caliber branch. 3. The RCA is a non-dominant vessel. The RCA is small caliber. The RCA is a diffusely diseased vessel with up to 80% stenosis (angiographically unchanged compared to prior cardiac catheterization from 2018). 4. Elevated left ventricular end-diastolic pressure of 25mmHg Procedure(s): 1. Moderate sedation 2. Ultrasound-guided access of the right radial artery 3. Coronary angiography 4. Left heart catheterization Access Site: Right radial artery Brief History and Clinical Indications: Patient is a 78 year old female with coronary artery disease, hypertension, hyperlipidemia who is referred for [facility] for abnormal stress test. All risks, benefits and alternatives to left heart catheterization with or without percutaneous coronary intervention was discussed at length with the patient. Risk of complications including but not limited to bleeding, infection, arrhythmia, stroke, worsening kidney function, blood loss, groin hematoma, limb loss, emergency coronary artery bypass grafting, and even were discussed with the patient and all questions were answered. The patient understood and wished to proceed. Time out called, patient name, date of , medical record number, allergies, procedure performed, identify Solid Waste Truck Driver, patient and staff member concurred with accurate data, procedure carried on. Findings: LEFT HEART CATHETERIZATION FINDINGS: 1. Left main: The left main coronary artery is widely patent without any significant obstructive disease. 2. Left anterior descending: The LAD has mild diffuse disease. The first diagonal branch and the second diagonal branch are of very small caliber. The third diagonal branch has ostial 70% stenosis, however, is a small caliber vessel. 3. Left circumflex: The left circumflex artery is the dominant vessel. The ostium has mild disease. The mid portion of the LCX has mild diffuse disease. The distal LCX has a moderate 50% stenosis. The obtuse marginal branch has an early bifurcation into two branches -- the upper branch has an ostial 80% stenosis however is a small caliber branch. 4. Right coronary artery: The RCA is a non-dominant vessel. The RCA is small caliber. The RCA is a diffusely diseased vessel with up to 80% stenosis. 5. Left ventricle: A. End-diastolic pressure 25 mmHg. B. LV gram deferred. C. No significant gradient across aortic valve on catheter pullback. Description of Procedure: Informed consent signed and placed in the chart. Patient transferred to greenskeeper laborer room. Prepped and draped in usual sterile fashion. 2% lidocaine injected subcutaneously in right wrist area. 22-gauge venipuncture catheter used to access the right radial artery under ultrasound guidance. 6-FR slender sheath placed in right radial artery. Nitroglycerine and Verapamil were given intraarterial through the sh
== END 2023-11-20 15:20 | disposition home or self-care (01) ==
PROVIDERS: PCP Family Medicine; Visit Provider Internal Medicine
PROC: 4A023N7 Measurement of Cardiac Sampling and Pressure, Left Heart, Percutaneous Approach (ICD-10-PCS; CPT 93452; principal; 2023-11-20 10:00)
DX: I25.10 Atherosclerotic heart disease of native coronary artery without angina pectoris (principal); I12.9 Hypertensive chronic kidney disease with stage 1 through stage 4 chronic kidney disease, or unspecified chronic kidney disease; N18.9 Chronic kidney disease, unspecified; E78.2 Mixed hyperlipidemia; F41.9 Anxiety disorder, unspecified; Z79.51 Long term (current) use of inhaled steroids
CPT/HCPCS: 36415; 80048; 85025; 93458; C1769; C1887; C1894; J1644; J2250; J2305; J3010; J7040

== ENCOUNTER 2023-11-28 14:28 | Emergency (ER) | payer MEDICARE, OTHER, SELFPAY ==
--- NOTE | 2023-11-28 14:33 | ED.ALLEREA ---
HPI - Allergic Reaction General Chief complaint: Allergic Reaction Stated complaint: Rash, mouth sores Time Seen by Provider: 11/28/23 14:31 Source: patient Mode of arrival: ambulatory Limitations: no limitations History of Present Illness HPI narrative: 78-year-old female presents with concern for a rash. Patient underwent cardiac catheterization on 11/20/2023 and states that she experienced an allergic reaction to the dye that was used for which she is prescribed diphenhydramine 50 mg t.i.d. She notes that the rash is on her arms ( right greater than left) and chest which is itchy and also had a sore in her mouth as well she states is not itchy. No fevers. Other than the Benadryl no new meds were prescribed after cardiac catheterization. No known exposures. She does note that she was exposed to poison [place]ac last year which was worse than this. Related Data Home Medications Medication Instructions Recorded Confirmed acetaminophen 500 mg capsule 1,000 mg PO .bedtime 04/20/20 11/19/23 (Tylophen) carvedilol 6.25 mg tablet 6.25 mg PO BID 04/20/20 11/19/23 amlodipine 10 mg tablet 10 mg PO DAILY 06/28/20 11/19/23 aspirin 81 mg capsule 81 mg PO DAILY 10/16/21 11/19/23 chlorthalidone 25 mg tablet 50 mg PO DAILY 08/15/22 11/19/23 magnesium oxide 400 mg PO DAILY 03/11/23 11/19/23 vit C 250 mg-vit E 200 unit-zinc 1 tablet PO .qd 10/09/23 11/19/23 12.5 mg-endoscopy support specialist 1 mg-lut-zeax chew tablet (ICaps AREDS2 (copper citrate)) carboxymethyl 0.5 %-glycerin 1 1 drp EACH EYE QHS 10/15/23 11/19/23 %-polysorb 80 0.5 %-PF eye dropperette (Refresh Optive Alex-3 (PF)) Allergies Allergy/AdvReac Type Severity Reaction Status Date / Time codeine Allergy Unknown Unknown Verified 11/19/23 13:11 tramadol Allergy Unknown Unknown Verified 11/19/23 13:11 escitalopram AdvReac Intermediate Rash Verified 11/19/23 13:11 Iodinated Contrast Media AdvReac Rash Verified 11/28/23 15:09 [facility] Past Medical History Medical History (Updated 11/29/23 @ 00:02 by Rigoberto Morris) Anxiety disorder, unspecified BMI 31.0-31.9,adult CAD in [place] artery Chronic pain of both knees Essential (primary) hypertension Hearing loss of both ears Hypertensive chronic kidney disease with stage 1 through stage 4 chronic kidney disease, or unspecified chronic kidney disease Low kidney function Mixed hyperlipidemia Urticaria Surgical History Surgical History (Updated 11/28/23 @ 15:09 by Melvi Stevens MD) S/P cardiac cath 11/20/23, Dr Lynch Family History Family History Father Amputation of leg Diabetes mellitus Mother Rheumatoid arthritis Social History Social History Smoking status: Never smoker Second hand tobacco smoke exposure: Yes Alcohol intake: never Substance use: never Substance use type: does not use Do You Feel Safe in your Home?: Yes Lack of Transportation: No Lack of Food: Sometimes True Current Housing: I Have Housing Concerned About Future Housing: No Difficulty Paying Gas/Electric Bills: No Difficulty Paying for Meds: No Currently Unemployed: No Education: High School Diploma/GED Difficulty w/ Childcare or Family Care: No Living arrangements: alone Occupation/Education: retired 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 Gender identity (if verbalized by the patient): Female Spiritual care concerns: No Exam Narrative: GENERAL: Well-appearing, well-nourished, and in no acute distress. HEAD: Normocephalic, atraumatic. EYES: Non injected, non icteric ENT: Nares clear, no rhinorrhea or epistaxis. NECK: Supple. CHEST: Speaking in full sentences. No respiratory distress. HEART: Regular rate and rhythm. . ABDOMEN: Soft, nondistended. EXTREMITIES: Normal range of motion. No edema. SKIN: Warm, dry. Small subcentimeter
[2023-11-28 14:35] VITALS: BP 141/48; PULSE 54; RESP 17; TEMP 36.4; O2SAT 98
[2023-11-28 14:50] VITALS: O2SAT 98
[2023-11-28 15:06] VITALS: BP 125/55; PULSE 51; RESP 20; O2SAT 97
[2023-11-28 15:12] LABS: Basophils Absolute Auto 0.1 K/mm3 (0.0-0.1); Basophils Percent Auto 1.4 % (0.2-1.2); Eosinophils Absolute Auto 0.2 K/mm3 (0-0.3); Eosinophils Percent Auto 3.7 % (0-4.4); Hematocrit 35.1 % (37.0-47.0); Hemoglobin 11.9 g/dL (12.0-15.0); Immature Granulocyte Absolute 0.01 K/mm3 (0.00-0.031); Immature Granulocyte Percent A 0.2 % (0-0.5); Lymphocytes Absolute Auto 2.27 K/mm3 (0.9-3.2); Lymphocytes Percent Auto 40.2 % (18.3-44.2); Mean Corpuscular HGB Conc 33.9 g/dl (32-36); Mean Corpuscular Hemoglobin 35.2 pg (26-34); Mean Corpuscular Volume 103.8 fl (80-100); Mean Platelet Volume 11.4 fl (7.4-10.4); Monocytes Absolute Auto 0.5 K/mm3 (0.1-0.6); Monocytes Percent Auto 8.9 % (2.6-8.5); Neutrophils Absolute Auto 2.6 K/mm3 (1.3-6.7); Neutrophils Percent Auto 45.6 % (45.5-73.1); Platelet Count Result 142 k/mm3 (150-375); Red Blood Count 3.38 M/mm3 (4.2-5.4); Red Cell Distribution Width 13.4 % (11.5-14.5); White Blood Count 5.6 K/mm3 (4.5-10.0)
[2023-11-28 15:25] LABS: Alanine Aminotransferase 13 U/L (6-35); Albumin Level 3.8 g/dL (3.5-5.1); Alkaline Phosphatase 127 U/L (38-126); Anion Gap 4 mmol/L (4-12); Aspartate Amino Transferase 23 U/L (14-36); Bilirubin,Total 0.4 mg/dL (0.2-1.3); Blood Urea Nitrogen 38 mg/dL (7-17); CRP < 0.5 mg/dL (<1.0); Calcium 9.5 mg/dL (8.4-10.2); Carbon Dioxide 27 mmol/L (22-30); Chloride 104 mmol/L (98-107); Estimated CRCL calculation 29 ml/min; Estimated Glomerular Filt Rate 40; Glucose 82 mg/dL (65-110); Potassium 3.8 mmol/L (3.4-5.0); Sodium 135 mmol/L (137-145)
[2023-11-28 15:48] LABS: Erythrocyte Sedimentation Rate 40 mm/hr (0-20)
[2023-11-28 15:57] VITALS: BP 137/51; PULSE 55; RESP 19; O2SAT 97
[2023-11-28] MEDS: hydrOXYzine HCL 10 MG TABLET PO (16:11)
[2023-11-28] MEDS: predniSONE 20 MG TABLET PO (16:12)
[2023-11-28 16:24] VITALS: BP 129/56; PULSE 58; RESP 18; O2SAT 97
== END 2023-11-28 16:25 | disposition home or self-care (01) ==
PROVIDERS: Emergency Provider Student in an Organized Health Care Education/Training Program; PCP Family Medicine
DX: L27.0 Generalized skin eruption due to drugs and medicaments taken internally (principal); T50.8X5A Adverse effect of diagnostic agents, initial encounter; I12.9 Hypertensive chronic kidney disease with stage 1 through stage 4 chronic kidney disease, or unspecified chronic kidney disease; N18.9 Chronic kidney disease, unspecified; D64.9 Anemia, unspecified; D69.6 Thrombocytopenia, unspecified; I25.10 Atherosclerotic heart disease of native coronary artery without angina pectoris; E78.2 Mixed hyperlipidemia; Z79.82 Long term (current) use of aspirin; Z79.899 Other long term (current) drug therapy
CPT/HCPCS: 36415; 80053; 85025; 85652; 86140; 99283; A9270; J7512

== ENCOUNTER 2024-03-03 13:24 | Outpatient (CLI) | payer MEDICARE, OTHER, SELFPAY ==
[2024-03-03 13:55] LABS: Hemoglobin 12.2 g/dL (12.0-15.0); Mean Corpuscular HGB Conc 33.9 g/dl (32-36); Mean Corpuscular Hemoglobin 35.8 pg (26-34); Mean Corpuscular Volume 105.6 fl (80-100); Mean Platelet Volume 11.5 fl (7.4-10.4); Platelet Count Result 149 k/mm3 (150-375); Red Blood Count 3.41 M/mm3 (4.2-5.4); Red Cell Distribution Width 13.2 % (11.5-14.5); White Blood Count 5.7 K/mm3 (4.5-10.0)
[2024-03-03 14:08] LABS: Alanine Aminotransferase 14 U/L (6-35); Albumin Level 4.2 g/dL (3.5-5.1); Alkaline Phosphatase 145 U/L (38-126); Anion Gap 7 mmol/L (4-12); Aspartate Amino Transferase 31 U/L (14-36); Bilirubin,Total 0.4 mg/dL (0.2-1.3); Blood Urea Nitrogen 45 mg/dL (7-17); Calcium 9.7 mg/dL (8.4-10.2); Carbon Dioxide 30 mmol/L (22-30); Chloride 101 mmol/L (98-107); Creatinine Urine 106.7 mg/dL; Estimated Glomerular Filt Rate 43; Glucose 97 mg/dL (65-110); Potassium 4.4 mmol/L (3.4-5.0); Sodium 138 mmol/L (137-145)
[2024-03-03 14:18] LABS: Parathyroid Intact 109.7 pg/mL (14.5-75.2)
[2024-03-03 14:25] LABS: MALB Creatinine Ratio < 5.6 mg/g (0-30); Microalbumin Urine Random < 6.0 mg/L (0-16.7)
[2024-03-03 14:58] LABS: Creatinine Urine 107.4 mg/dL
[2024-03-03 15:02] LABS: Total Protein Urine Random < 5 mg/dL; Ur Ttl Prot Creatinine Ratio < 0.05 mg/mg (0-0.20)
[2024-03-03 16:04] LABS: Vitamin D 25 Hydroxy 38.8 ng/mL
== END 2024-03-03 13:25 | disposition home or self-care (01) ==
PROVIDERS: PCP Family Medicine; Visit Provider Internal Medicine Nephrology
DX: E11.22 Type 2 diabetes mellitus with diabetic chronic kidney disease (principal); I12.9 Hypertensive chronic kidney disease with stage 1 through stage 4 chronic kidney disease, or unspecified chronic kidney disease; N18.32 Chronic kidney disease, stage 3b; I25.84 Coronary atherosclerosis due to calcified coronary lesion; I11.9 Hypertensive heart disease without heart failure; E78.00 Pure hypercholesterolemia, unspecified; D47.2 Monoclonal gammopathy
CPT/HCPCS: 36415; 80053; 82043; 82306; 82570; 83735; 83970; 84156; 85027

== ENCOUNTER 2024-09-04 13:55 | Outpatient (CLI) | payer MEDICARE, OTHER, SELFPAY ==
--- OUTSIDE RECORDS SUMMARY | 2024-09-04 14:21 | XMS_ITS | CONTINUITY OF CARE DOCUMENT ---
Author Name cecilia brooks Address Unknown Organization [facility] Address [address] [place] [address] Phone [phone] Care Team Providers Care Marking Machine Operator Name Role Phone Belem Cary MD Unavailable MEGHAN CHOI MD Unavailable [phone] MEGHAN CHOI MD Unavailable [phone] [employer] Payer name Policy type / Coverage type [place] red libertarian ID [facility] [id number]
--- OUTSIDE RECORDS SUMMARY | 2024-09-04 14:21 | XMS_ITS | Referral Summary ---
Author Organization [facility] [address] Address [address] [place] [address] Care Team Providers Care Drum Maker Name Role Phone Zack Miller MD Primary Care Provider [phone] Allergies Active Allergy Reactions Criticality Noted Date Comments Codeine Phosphate Unknown 07/06/2014 Iodinated Contrast Media Rash Medium 11/28/2023 Opioids - Morphine Analogues Unknown 015 Medications aspirin 81 mg tablet Take 1 tablet (81 mg total) by mouth daily Active vit C/E/Zn/coppr/lut ein/zeaxan (PRESERVISION AREDS 2 ORAL) Take by mouth 2 (two) times a day. Active carboxymethylcel lulose (REFRESH PLUS) 0.5 % dropperette Administer 1 drop into both eyes Active FLUoxetine (PROzac) 20 mg tablet Take 1 tablet (20 mg total) by mouth daily Active acetaminophen (TYLENOL) 500 mg tablet Take 1 tablet (500 mg total) by mouth as directed TAKE 2 TABLETS BY MOUTH AT BEDTIME Active amLODIPine (NORVASC) 10 mg tablet Take 1 tablet (10 mg total) by mouth daily Active LORazepam (ATIVAN) 2 mg tablet 1 1 Active pravastatin (PRAVACHOL) 40 mg tablet TAKE ONE TABLET BY MOUTH EVERY DAY 90 tablet 1 1 Active chlorthalidone 25 mg tablet Take 1 tablet (25 mg total) by mouth daily Active vitamins A,C,I-cocm-sadav r (ICaps AREDS) 4,296 mcg-226 mg-90 mg capsule Take by mouth Active MAGNESIUM ORAL Take 400 mg by mouth daily Active albuterol HFA (PROVENTIL HFA,VENTOLIN HFA,PROAIR HFA) 90 mcg/actuation inhaler INHALE 1 PUFF BY MOUTH EVERY 4 HOURS NEEDED FOR WHEEZING OR SHORTNESS OF BREATH 3 Active gabapentin (NEURONTIN) 100 mg capsule Take 1 capsule (100 mg total) by mouth nightly Active carvediloL (COREG) 6.25 mg tablet Take 1 tablet (6.25 mg total) by mouth every 12 (twelve) hours 180 tablet 4 Active Active Problems Problem Noted Date Diagnosed Date Allergy to iodinated contrast media 11/21/2023 Chronic heart failure with preserved ejection fr action 09/01/2021 SOB (shortness of breath) 09/30/2020 Aortic stenosis 09/30/2020 Pulmonary HTN 03/24/2020 Hypertension associated with diabetes 10/14/2018 H/O cardiomyopathy 10/14/2018 Nonischemic cardiomyopathy 03/17/2018 Coronary artery disease invo lving [place] coronary artery of [place] heart without angina pectoris 03/17/2018 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 diabetes mellitus ([facility]) 03/17/2018 Stage 2 chronic kidney disease 03/17/2018 Social History Tobacco Use Types Packs/Day Years Used Date Smoking Tobacco: Never Smokeless Tobacco: Never Tobacco Cessation:Counseling Given: Not Answered Personal Safety Answer Date Recorded Getting School Help Needed Not on file 08/27 Comments Unknown Sex and Gender Information Value Date Recorded Sex Assigned at Not on file Legal Sex Female 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 Gender Identity Not on file Sexual Orientation Not on file Last Filed Vital Signs Vital Sign Reading Time Taken Comments Blood Pressure 114/46 01/30/2024 2:06 PM CDT Pulse 60 01/30/2024 2:06 PM CDT Temperature 36.6 C (97.8 F) 03/25/2020 10:08 AM CDT Respiratory Rate 16 12/30/2017 2:20 PM CDT Oxygen Saturation 95% 01/30/2024 2:06 PM CDT Inhaled Oxygen Concentration - - Weight 71.7 kg (158 lb) 01/30/2024 2:06 PM CDT Height 152.4 cm (5') 01/30/2024 2:06 PM CDT Body Mass Index 30.86 01/30/2024 2:06 PM CDT Plan of Treatment Not on file Procedures Procedure Name Priority Date/Time Associated Diagnosis Comments POCT LIPID PANEL Routine 10/22/2022 2:53 PM CDT Coronary artery disease involving [place] coronary artery of [place] heart without angina pectoris Mixed diabetic hyperlipidemia associated with type 2 diabetes mellitus (CMS/HCC) (HCC) BASIC METABOLIC PANEL Routine 02/21/2018 9:58 AM CDT from Last 3 Months or Most Recently Relevant to Health Maintenance Results * POCT lipid panel (10/22/2022 2:53 PM CDT) Cholesterol, POC 178 mg/dL Comment:GLU = 117 HDL, POC 65 mg/dL Triglycerides, POC 194 mg/dL LDL Cholesterol POC 74 mg/dL Chol/HDL Ratio, POC 1.1 Non-HDL Cholesterol, POC 113 mg/dL Cholesterol Total, POC 178 mg/dL Capillary blood 10/22/2022 2 :53 PM CDT Obed Chen MD POINT OF CARE TEST ORDER NILDA Final Result * (ABNORMAL) Basic metabolic panel (02/21/2018 9:58 AM CDT) Glucose 79 65 - 99 mg/dL [facility] - 01 BUN 32(H) 8 - 27 mg/dL [facility] - 01 Creatinine, Serum 1.30(H) 0.57 - 1.00 mg/dL [facility] - 01 eGFR If NonAfricn Am 41(L) >59 mL/min/1.7 3 [facility] - 01 eGFR If Africn Am 47(L) >59 mL/min/1.7 3 [facility] - 01 BUN/creat ratio 25 12 - 28 [facility] - 01 Sodium 144 134 - 144 mmol/L [facility] - 01 Potassium, sr 4.7 3.5 - 5.2 mmol/L [facility] - 01 Chloride 105 96 - 106 mmol/L [facility] - 01 CO2 25 20 - 29 mmol/L [facility] - 01 Calcium 9.7 8.7 - 10.3 mg/dL [facility] - 01 02/21/2018 9:58 AM CDT 02/21/2018 Narrative [facility] - 02/22/2018 3:11 AM CDT Performed at: [facility] [id number] Clinic Receptionist: Jarrod Grace PhD, Phone: [phone] us Desi Florian NP LAB BLOOD ORDERABLES Susan l Result [facility] - 01 from Last 3 Months or Most Recently Relevant to Health Maintenance Insurance MEDICARE [facility] MEDICARE [facility] Care Teams Drum Maker Relationship Specialty Start Date End Date Zack Miller MD PCP - General Family Medicine 07/01/17
--- OUTSIDE RECORDS SUMMARY | 2024-09-04 14:21 | XMS_ITS | Encounter Summary ---
Author Organization [facility] Address [address] [facility] [place] [address] Phone Care Team Providers Care Command And Control Specialist Name Role Phone Zack Miller MD Primary Care Provider [phone] Reason for Visit * Reason Comments Med Refill Encounter Details Date Type Department Care Team (Late st Contact Info) Description 05/27/2024 Refill [place] [employer] [facility] [address] [phone] Emiliano Nagel DO [address] [facility] 1 [place] [address] Social History Tobacco Use Types Packs/Day Years Used Date Smoking Tobacco: Former Comments:Smoking History Inf o:Some days Alcohol Use Standard Drinks/Week Comments No 0 (1 standard drink = 0.6 oz pur e alcohol) Comments Unknown Sex and Gender Information Value Date Recorded Sex Assigned at Not on file Legal Sex Female 2:51 PM EDT Gender Identity Not on file Sexual Orientation Not on file documented as of this encounter Plan of Treatment Upcoming Encounters Date Type Department Care Team (Late Contact Info) Description 09/15/2024 12:45 PM CDT Office Visit [place] [employer] [facility] [address] [phone] Emiliano Nagel DO [address] [facility] [place] [address] documented as of this encounter Visit Diagnoses Not on filedocumented in this encounter Care Teams Command And Control Specialist Relationship Specialty Start Date End Date Zack Miller MD [address] [place] [address] PCP - General Family Medicine 05/16/21 documented as of this encounter
--- OUTSIDE RECORDS SUMMARY | 2024-09-04 14:21 | XMS_ITS | Encounter Summary ---
Author Organization [facility] [employer] [facility] Address [facility] [address] Phone Care Team Providers Care Radiologic Technologist Mammogram Name Role Phone Zack Miller MD Primary Care Provider Reason for Visit * Reason Onset Date Comments Med Refill Med Refill 01/26/2021 Encounter Details Date Type Department Care Team (Late st Contact Info) Description 01/24/2021 Refill [place] [employer] [facility], [facility] [address] [place] [phone] Emiliano Nagel DO [address] [address] Social History Tobacco Use Types Packs/Day [...] Encounters Date Type Department Care Team (Late st Contact Info) Description 09/15/2024 12:45 PM CDT Office Visit [place] [employer] [facility], [facility] [address] [facility] 15 [place] [phone] Emiliano Nagel DO 1265 [facility] 1 [place] [address] documented as of this encounter Visit Diagnoses Not on filedocumented in this encounter Care Teams Radiologic Technologist Mammogram Relationship Specialty Start Date End Date Zack Miller MD [address] [place] [address] PCP - General Family Medicine 05/16/21 documented as of this encounter
--- OUTSIDE RECORDS SUMMARY | 2024-09-04 14:21 | XMS_ITS | Clinical Summary ---
Author Organization [facility] [address] Address [address] [place] [address] Care Team Providers Care Retirement Village Manager Name Role Phone Zack Miller MD Primary Care Provider [phone] Allergies Active Allergy Reactions Criticality Noted Date [...] mg total) by mouth daily Active vitamins A,C,B-jfif-vamfg r (ICaps AREDS) 4,296 mcg-226 mg-90 mg [...] cardiomyopathy 03/17/2018 Coronary artery disease invo lving [place] coronary artery of [place] heart without angina pectoris 03/17/2018 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 diabetes mellitus (CMS/HCC) 03/17/2018 Stage 2 chronic kidney disease 03/17/2018 Medical History Medical History Date Comments Hypertension Coronary artery disease Diabetes mellitus (HCC) Family History Medical History Relation Name Comments No Known Problems Father No Known Problems Mother Relation Name Status Comments Father Mother Social History Tobacco Use Types Packs/Day Years Used Date Smoking Tobacco: Never Smokeless Tobacco: Never Tobacco Cessation:Counseling Given: Not Answered Personal Safety Answer Date Recorded Getting School Help Needed Not on file 08/27 Comments Unknown Sex and Gender Information Value Date Recorded Sex Assigned at Not on file Legal Sex 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 Gender Identity Not on file Sexual Orientation Not on file Obstetrics History Last Filed Vital Signs Vital Sign Reading [...] 01/30/2024 2:06 PM CDT Plan of Treatment Health Maintenance Due Date Last Done Comments Albumin Creatinine Ratio, Urine 1945 Depression Screening 1945 Fall Risk Assessment 1945 Hemoglobin A1C 1945 Hepatitis C Screening 1945 Osteoporosis Screening-Bone Density Scan 1945 Dilated Eye Exam 1945 Foot Exam 1945 DTaP/Tdap/Td Vaccine (1 - Tdap) 1956 Hepatitis B Screening 1963 Pneumococcal vaccine 65+ (1 of 2 - PCV) 1964 Zoster Vaccine (1 of 2) 1995 Well Visit 65+ 2010 eGFR 02/21/2019 02/21/2018, 12/29, 12/16/2017 Lipid Panel 10/23/2023 10/22/2022, 03/0 09/2021, 03/24/2020, Additional history exists Influenza Vaccine (#1) 2024 8, 07/06/2014, 04/02/2013 Procedures Procedure Name Priority Date/Time Associated Diagnosis Comments POCT LIPID PANEL Routine 10/22/2022 2:53 PM CDT Coronary artery disease involving [place] coronary artery of [place] heart without angina pectoris Mixed diabetic hyperlipidemia [...] Capillary blood 10/22/2022 2 :53 PM CDT us Obed Chen MD POINT OF CARE TEST [...] - 02/22/2018 3:11 AM CDT Performed at: [facility] [id number] Demolition Crane Operator: Jarrod Grace PhD, Phone: [phone] us Desi Florian NP LAB BLOOD ORDERABLES Susan l Result [facility] - 01 from Last 3 Months or Most Recently Relevant to Health Maintenance Insurance MEDICARE [facility] MEDICARE [facility] Care Teams Retirement Village Manager Relationship Specialty Start Date End Date Zack iMller MD PCP - General Family Medicine 07/01/17
--- OUTSIDE RECORDS SUMMARY | 2024-09-04 14:21 | XMS_ITS | Continuity of Care Document ---
Author Organization [facility] Address [address] [place] [address] Phone Care Team Providers Care Film Archivist Name Role Phone Juan Maher Unavailable Unavailable [...] Diagnoses Date Provider Providers Copied on Encounter [facility], [address], [place], [place], [id number], [place] tel:[phone] [facility] No Information [address] Nika Martinez. [address], [place], [place], [facility], [place]. tel:[phone] [facility], [address], [place], [place], [id number], [place] tel:[phone] [facility] No Information 5-201 0 Alton Hernandez. [address] [place], [place], [facility], [place]. tel:[phone] Referring Provider: David Hardwick, [address] [place], [place], [facility]. tel:[phone] [facility], [address], [place], [place], [id number], [place] tel:[phone] [facility] No Information 6-201 0 Nika Martinez. [address] , [address], [place], [place], [facility], [place]. tel:[phone] [facility], [address], [place], [place], [id number], [place] tel:[phone] [facility] No Information 9 Alton Hernandez. [address] [place], [place], [facility], [place]. tel:[phone] Referring Provider: Juan Rizvi, [address], [place], [place], [facility]. tel:[phone] [facility], [address], [place], [place], [id number], [place] tel:[phone] [facility] No Information [address] Nika Martinez. [address] [facility] , [address], [place], [place], [facility], [place]. tel:[phone] [facility], [address], [place], [place], [id number], [place] tel:[phone] [facility] No Information [address] Al[address] Hernandez. [address] [place], [address], [place]. tel:[phone] Referring Provider: David Hardwick, [address] [place], [place], [facility]. tel:[phone] [facility], [address], [place], [place], [id number], [place] tel:[phone] [facility] [place] No Information Dec-0 3[address] Nika Martinez. [address] [facility] [address], [place], [place], [facility], [place]. tel:[phone] [facility], [address], [place], [place], [id number], [place] tel:[phone] [facility] No Information [address] Alton Hernandez. [address] [place], [place], [facility], [place]. tel:[phone] Office/outpat ient Visit, Est [facility], [address], [place], [place], [id number], [place] tel:[phone] [facility] No Information Feb-0 [address] Al[address] Hernandez. [address] [place], [place], [facility], [place]. tel:[phone] Family History Family Member Type Diagnosis Age At Onset No Information Payers Payer name Insurance type Covered constitution party ID Authoriza tion(s) No Information Social [...]
--- OUTSIDE RECORDS SUMMARY | 2024-09-04 14:21 | XMS_ITS | Clinical Summary ---
Author Organization [facility] Address [address] [place] [phone] Phone Care Team Providers Care Senior Web Designer Name Role Phone Unavailable Primary Care Provider Unavailabl e Medications Medication Sig Dispensed Refills Start Date End Date Status LORazepam (ATIVAN) 1 MG tablet 1q6 prn 05/20/2014 Active aspirin (ASPIR-LOW) 81 MG EC tablet 05/20/2014 Active cholecalciferol (VITAMIN D-3) 2000 units capsule 11/17/2014 Active lisinopril (PRINIVIL,ZESTRIL) 20 MG tablet 1 bid 05/20/2014 Active Multiple Vitamin (MULTIVITAMIN) capsule 05/20/2014 Ac tive furosemide (LASIX) 20 MG tablet 01/04/2015 Active pravastatin (PRAVACHOL) 20 MG tablet TAKE ONE TABLET DAILY AT BEDTIME 13 04/04/2016 Active Active Problems Problem Noted Date Diagnosed Date Type 2 diabetes mellitus without complication Acute kidney failure 05/19/2014 Essential (primary) hypertension 05/19/2014 Pain in joint 05/19/2014 Family History Medical History Relation Comments Diabetes mellitus Father Heart disease Mother Kidney disease Neg Hx Kidney stone Neg Hx Relation Status Comments Father Mother Social History Tobacco Use Types Packs/Day Years Used Date Smoking Tobacco: Never Sex and Gender Information Value Date Recorded Sex Assigned at Not on file Gender Identity Not on file Sexual Orientation Not on file Last Filed Vital Signs Vital Sign Reading Time Taken Comments Blood Pressure 134/70 04/02/2016 12:01 AM CDT Pulse 60 04/02/2016 12:01 AM CDT Temperature 36.8 C (98.2 F) 04/02/2016 12:01 AM CDT Respiratory Rate - - Oxygen Saturation - - Inhaled Oxygen Concentration - - Weight 88 kg (194 lb) 04/02/2016 12:01 AM CDT Height 152.4 cm (5') 04/02/2016 12:01 AM CDT Body Mass Index 37.89 04/02/2016 12:01 AM CDT Plan of Treatment Not on file
--- OUTSIDE RECORDS SUMMARY | 2024-09-04 14:21 | XMS_ITS | Clinical Summary ---
Author Organization [facility] José Miguel Sandoval Address [facility] [place] [address] Care Team Providers Care Long Goods Drier Name Role Phone Zack Miller MD Primary Care Provider [phone] Allergies Active Allergy Reactions Criticality Noted Date Comments Codeine Shortness of Breath/Wheezing,Rash Medications chlorthalidone (HYGROTON) 25 mg tablet Take 25 mg by mouth daily. Active aspirin (ECOTRIN EC) 81 mg Tablet, Delayed Release (E.C.) Take 81 mg by mouth daily. Active carvediloL (COREG) 6.25 mg tablet Take 6.25 mg by mouth 2 times daily with meals. Active FLUoxetine (PROzac) 20 mg tablet Take 20 mg by mouth daily. Active lisinopriL (PRINIVIL) 10 mg tablet Take 10 mg by mouth daily. Active LORazepam (ATIVAN) 2 mg tablet Take 2 mg by mouth every 6 hours as needed for Anxiety. Active pravastatin (PRAVACHOL) 40 mg tablet Take 40 mg by mouth daily. Active acetaminophen (TYLENOL) 500 mg tablet Take 500 mg by mouth every 6 hours as needed. Active vit A/vit C/vit E/zinc/copper (ICAPS AREDS ORAL) Take by mouth. Activ e carboxymethylce llulose sodium (REFRESH OP) by Ophthalmic route. Active Active Problems No known active problems Family History Medical History Relation Name Comments Diabetes Father Heart Disease Mother Cancer Sister 1 Cancer Sister 2 Relation Name Status Comments Brother Alive Father Mother Sister 1 Alive Sister 2 Social History Tobacco Use Types Packs/Day Years Used Date Smoking Tobacco: Never Smokeless Tobacco: Never Alcohol Use Standard Drinks/Week Comments Never 0 (1 standard drink = 0.6 oz pur e alcohol) Comments Unknown Sex and Gender Information Value Date Recorded Sex Assigned at Not on file Legal Sex Female 9:25 PM CDT Gender Identity Not on file Sexual Orientation Not on file Last Filed Vital Signs Vital Sign Reading Time Taken Comments Blood Pressure 151/58 02/04/2020 11:27 AM CDT Pulse 60 02/04/2020 11:27 AM CDT Temperature 36.7 C (98.1 F) 02/04/2020 11:27 AM CDT Respiratory Rate - - Oxygen Saturation 95% 02/04/2020 11:27 AM CDT Inhaled Oxygen Concentration - - Weight 93.9 kg (207 lb) 02/04/2020 11:27 AM CDT Height 152.4 cm (5') 02/04/2020 11:27 AM CDT Body Mass Index 40.43 02/04/2020 11:27 AM CDT Plan of Treatment Health Maintenance Due Date Last Done Comments DTAP/TDAP/TD VACCINES (1 - Tdap) 1964 PNEUMOCOCCAL VACCINE 50+ YEARS (1 of 1 - PCV) 05/03/19 95 ZOSTER VACCINE (1 of 2) 1995 OSTEOPOROSIS SCREENING 2010 RSV VACCINE (60+ or ) (1 - 1-dose 75+ series) 2020 INFLUENZA VACCINE (#1) 2024 Care Teams Long Goods Drier Relationship Specialty Start Date End Date Zack Miller MD [address] [place] [address] PCP - General Family Practice 01/19/20
--- OUTSIDE RECORDS SUMMARY | 2024-09-04 14:21 | XMS_ITS | Data Portability ---
Author Organization [place] [facility], Main Office Address [address] [place] [address] Care Team Providers Care Media Specialist Name Role Phone DON HECTOR Primary Care Provider DON HECTOR Referring Provider Assessment Encounter Date Assessment Date Assessment LastModified by Organization Details LastModified Time 09/27/2022 09/27/2022 HPI: Patient returns. It has been almost 4 months since her last cortisone injection to both her knees. She has missed couple of visits due to health issues as well as weather. She has severe medial compartment osteoarthritis the right knee and moderately severe bicompartmental osteoarthritis in the left. Shots to work well for her. Physical exam: 77-year-old female she walks with a 4 wheeled walker. She has mild effusions of both knees. Range motion is from 3-130 degrees bilaterally. She has moderate tenderness over both medial and lateral joint lines in both knees. ChloraPrep used in the skin 20 mg Kenalog and 3 cc of 0.5% ropivacaine was injected into both knees. Risk of infection discussed. Impression: 77-year-old female has severe osteoarthritis in both knees. She is not a surgical candidate. Shots to give her relatively good relief of her symptoms. We will see her back in 3 months for repeat injection Not available 09/27/2022 13:53:01 12/27/2022 12/27/2022 HPI: Patient returns. She is here for cortisone injection in both of her knees. Last shots were 3 months ago. She does get some benefit from the injections. Patient has chronic kidney disease and therefore unable take anti-inflammatorie s. She does take Tylenol. We talked about using Voltaren gel this may help little bit with her symptoms. She does not wish to do any surgery on the knees. She does not feel that she would do well with it. She wished to have additional injections today. Physical exam: 77-year-old female very alert pleasant. She walks with a four-wheel walker. She has incision over the anterior aspect of her left knee from previous patella fracture surgery. Has mild effusions of both knees. Range of motion is from 5-125 degrees bilaterally. There is no increased swelling in either lower extremity. After ChloraPrep was used on skin 20 mg Kenalog and 3 cc of 0.5% ropivacaine was injected both knees. Risk infection discussed. Impression: 77-year-old female who has rather severe osteoarthritis in both knees. She wishes to continue with injections. I will see her back in 3 months. Not available 12/27/2022 15:52:03 04/04/2023 04/04/2023 HPI: Patient returns. She is here for cortisone injection both her knees. Last shots were 3 months ago she does get good relief from the injections. She wished to have additional injections today. Physical exam: 77-year-old female alert pleasant. She walks with a four-wheel walker. She has mild effusions in both knees. Range of motion is approximately 10-125 degrees bilaterally. Mild tenderness over both medial joint lines to palpation. Moderate pain that femoral grind bilaterally. After ChloraPrep was used on skin 20 mg Kenalog and 3 cc of 0.5% ropivacaine was injected into both knees. Risk of infection discussed. Impression: 77-year-old female has significant osteoarthritis in both knees. Shots continue to work well for her. We will see her in 3 months. Patient is unable take anti-inflammatorie s due to chronic kidney disease. Not available 04/04/2023 14:39:55 07/04/2023 07/04/2023 patient returns. Would like cortisone shots in her knees today. Her last cortisone shots were 3 months ago and they were helpful. She has severe bicompartmental osteoarthritis in the left knee severe medial compartment osteoarthritis the right knee. As she has undergone ORIF of a left patellar fracture in the past. The last x-rays were in November of 2022. She On exam today she has trace effusion both knees is range of motion from 5-120 bilaterally. She has significant chronic kidney disease and is not allowed to take nonsteroidal anti-inflammatory medications. She does take Tylenol a daily basis to help pain. She would like cortisone shots today. Risk of side effects including risk of infection discussed. After ChloraPrep prep, 20 mg of Kenalog and 4 cc of 0.5% ropivacaine were injected into each knee without difficulty. I will see her back in 3 months to assess her progress. [email or web address] Not available 07/04/2023 14:38:21 Plan of Treatment Reminders Order Date Submit Date Provider Last Modified By Organization Details Last Modified Time Details Appointments None recorded. Lab None recorded. Referral None recorded. Procedures injection/a spiration joint/bursa (PROC) - in office procedure, administere d by provider 2023 024 In-Office Order, Internal Use Only DO Not Attach Compendium DO Not Attach Compendium, Do Not Delete/merge, [id number] 14:27:00 injection/a spiration joint/bursa (PROC) - in office procedure, administere d by provider 2022 023 [email or web address] In-Office Order, Internal Use Only DO Not Attach Compendium DO Not Attach Compendium, Do Not Delete/merge, [id number] 3 14:18:31 injection/a spiration joint/bursa (PROC) - in office procedure, administere d by provider 2022 023 [email or web address] In-Office Order, Internal Use Only DO Not Attach Compendium DO Not Attach Compendium, Do Not Delete/merge, [id number] 3 14:42:41 injection/a spiration joint/bursa (PROC) - in office procedure, administere d by provider 2022 023 [email or web address] In-Office Order, Internal Use Only DO Not Attach Compendium DO Not Attach Compendium, Do Not Delete/merge, [id number] 3 13:42:41 Surgeries None recorded. Imaging XR, knee 2022 023 [email or web address] [facility], [address] [place] [address], [place], [address], 3 16:24:11 Medication Orders Kenalog 10 mg/mL suspension for injection [address] [facility], [address] [place] [address], [id number], 4 14:49:53 ropivacaine (PF) 5 mg/mL (0.5 %) injection solution [address] [facility] [address] [facility], [address] [place] [address], [id number], 4 14:49:53 Kenalog 10 mg/mL suspension for injection [address] [facility], [address] [place] [address], [id number], 3 10:07:11 ropivacaine (PF) 5 mg/mL (0.5 %) injection solution [address] [facility], [address] [place] [address], [id number], 3 10:07:11 Kenalog 10 mg/mL suspension for injection [address] [facility], [address] [place] [address], [id number], 3 12:20:02 ropivacaine (PF) 5 mg/mL (0.5 %) injection solution [address] [facility] [address] [facility], [address] [place] [address], [address], 3 12:20:02 Kenalog 10 mg/mL suspension for injection 2022 023 [email or web address] 3 14:07:34 ropivacaine (PF) 5 mg/mL (0.5 %) injection solution 2022 023 [email or web address] Not available 3 14:07:34 Patient TargetsNo targets recorded. Patient InstructionsNo instructions recorded. Reason for Referral None Reported. Results Created Date Observation Date Name Description Value Unit Range Abnormal Flag Note LastModifiedBy Organization Detail LastModifiedTime 12/28/19 23 XR, knee No observ ation record ed. [facility], [place], [address], 12/27/2022 15:50:32 Result Notes None recorded. Problems Name Problem SNOMED Code Status Onset Date Resolution Date Notes Provider Name and Address Organization Details Recorded Time Bilateral osteoarthr itis of knees 2299194736872 07 Active 2022 MJ Alvarez, [place] [employer] [facility] 3 13:41:32 Osteoarthr itis of hip 206977383 Active Not Available [facility] 3 03:06:38 Osteoarthr itis of knee 630834699 Active Not Available [facility] 3 03:06:38 Shoulder joint pain 010261565 Active Not Available [facility] 3 03:06:38 Enthesopat hy of hip region 99236006 Active Not Available [facility] 3 03:06:38 Osteoarthr itis 616606901 Active Not Available [facility] 3 03:06:38 Problem Notes None recorded. Procedures Surgical History Date Name Laterality Status Provider Name and Address Organization Details Recorded Time Hysterectomy completed Not Available [facility] 08/29/2022 02:55:10 Knee completed Not Available [facility] 07/2022 02:55:10 Imaging Results Imaging Date Name Status LastModified by Organiz ation Details LastModified Time 12/27/2022 XR, knee completed [facility] [address], [place], [address], 12/27/2022 15:50:32 Procedure Notes None recorded. Medical Equipment None Reported. Allergies Allergen ID Allergen Name Allergen Category Reaction Reaction Severity Criticality Documentation Date Start Date Code Code System Note Provider Name and Address Organization Details Recorded Time 5898 codeine medicatio n hives Not available Not available 08/29/2022 2670 RxNorm Not Available [facility] 3 03:28:40 80714 tramadol medicatio n Not available Not available Not available 12/27/2022 43665 RxNorm MJ Alvarez, [place] [facility] [place] [employer] [facility] 3 15:14:00 Medications Name Sig Start Date Stop Date Status Note LastModified by Organization Details LastModified Time furosemide 40 mg tablet 04/30 completed Not Available Not Available Not Available fluconazole 100 mg tablet TAKE 1 TABLET BY MOUTH ONCE DAILY FOR 14 DAYS active Not Available Not Available No t Available carvedilol 6.25 mg tablet TAKE 1 TABLET BY MOUTH EVERY 12 HOURS active Not Available Not Available No t Available prednisone 10 mg tablet 05/21 completed Not Available Not Available Not Available azithromyci n 250 mg tablet TAKE 2 TABLETS ON DAY 1 THEN 1 TABLET DAILY FOR 4 DAYS UNTIL ALL TAKEN active Not Available Not Available No t Available pravastatin 40 mg tablet TAKE 1 TABLET BY MOUTH EVERY DAY AT BEDTIME active Not Available Not Available No t Available fluconazole 150 mg tablet 09/15 completed Not Available Not Available Not Available clarithromy mony 500 mg tablet 04/30 completed Not Available Not Available Not Available lisinopril 20 mg tablet 04/30 completed Not Available Not Available Not Available bupivacaine HCl 0.5 % (5 mg/mL) injection solution In office injection administe red by the provider 11/30 completed Not Available Not Available Not Available penicillin V potassium 500 mg tablet 04/30 completed Not Available Not Available Not Available amlodipine 2.5 mg tablet active Not Available Not Available Not Available chlorthalid one 25 mg tablet TAKE 1 TABLET BY MOUTH ONCE DAILY IN THE MORNING active Not Available Not Available No t Available chlorthalid one 50 mg tablet TAKE 1 TABLET BY MOUTH IN THE MORNING 12/27 completed Not Available Not Available Not Available sulfamethox azole 800 mg-trimetho prim 160 mg tablet 04/30 completed Not Available Not Available Not Available carvedilol 3.125 mg tablet TAKE 1 TABLET EVERY 12 HOURS 04/30 completed Not Available Not Available Not Available amoxicillin 875 mg tablet 04/30 completed Not Available Not Available Not Available magnesium oxide 400 mg (241.3 mg magnesium) tablet TAKE 1 TABLET BY MOUTH ONCE DAILY IN THE MORNING active Not Available Not Available No t Available tretinoin 0.025 % topical gel 05/21 completed Not Available Not Available Not Available Kenalog 10 mg/mL suspension for injection in office 2023 active [facility]: 0003- 0494- 20 Not Available Not Available Not Available lorazepam 2 mg tablet TAKE 1 TABLET BY MOUTH AT BEDTIME NEEDED FOR ANXIETY active Not Available Not Available No t Available amlodipine 10 mg tablet TAKE 1 TABLET BY MOUTH AT BEDTIME active Not Available Not Available No t Available econazole nitrate 1 % topical cream APPLY CREAM TOPICALLY ONCE DAILY active Not Available Not Available No t Available cephalexin 500 mg capsule 04/30 completed Not Available Not Available Not Available Norvasc 5 mg tablet Take 1 tablet every day by oral route. 09/15 completed Not Available Not Available Not Available nystatin 100,000 unit/gram topical cream 09/15 completed Not Available Not Available Not Available lisinopril 10 mg tablet active Not Available Not Available Not Available nystatin-tr iamcinolone 100,000 unit/g-0.1 % topical cream APPLY CREAM TOPICALLY TO AFFECTED AREA TWICE DAILY active Not Available Not Available No t Available hydroxyzine HCl 25 mg tablet TAKE 1 TABLET BY MOUTH THREE TIMES DAILY NEEDED FOR ITCHING active Not Available Not Available No t Available pravastatin 20 mg tablet 04/30 completed Not Available Not Available Not Available furosemide 20 mg tablet active Not Available Not Available Not Available gabapentin 100 mg capsule TAKE 1 CAPSULE BY MOUTH EVERY DAY AT BEDTIME active Not Available Not Available No t Available nystatin 100,000 unit/gram topical powder APPLY POWDER TOPICALLY TWICE DAILY active Not Available Not Available No t Available lorazepam 1 mg tablet TAKE 1 TABLET FOUR TIMES A DAY NEEDED 04/30 completed Not Available Not Available Not Available cefuroxime axetil 500 mg tablet 04/30 completed Not Available Not Available Not Available levofloxaci n 500 mg tablet 04/30 completed Not Available Not Available Not Available albuterol sulfate HFA 90 mcg/actuati on aerosol inhaler INHALE 1 PUFF BY MOUTH EVERY 4 HOURS NEEDED FOR WHEEZING OR SHORTNESS OF BREATH active Not Available Not Available No t Available Prozac 10 mg capsule Take 1 capsule every day by oral route. 05/12 completed Not Available Not Available Not Available fluoxetine 20 mg capsule TAKE 1 CAPSULE BY MOUTH ONCE DAILY active Not Available Not Available No t Available naproxen 500 mg tablet 04/30 completed Not Available Not Available Not Available Vigamox 0.5 % eye drops 04/30 completed Not Available Not Available Not Available nitrofurant oin monohydrate /macrocryst als 100 mg capsule 04/30 completed Not Available Not Available Not Available chlorhexidi ne gluconate 0.12 % mouthwash 04/30 completed Not Available Not Available Not Available aspirin 2019 active Not Available Not Available Not Avai lable Tylenol 500 mg, twice a day 2018 active Not Available Not Available Not Avai lable lidocaine (PF) 10 mg/mL (1 %) injection solution In office injection administe red by the provider 11/30 completed [facility]: 0409- 4276- 17 Not Available Not Available Not Available lidocaine (PF) 5 mg/mL (0.5 %) injection solution In office injection administe red by the provider 05/31 completed Not Available Not Available Not Available Prevnar 13 (PF) 0.5 mL intramuscul ar syringe PHARMACIS T ADMINISTE RED IMMUNIZAT ION ADMINISTE RED AT TIME OF DISPENSIN G 09/15 completed Not Available Not Available Not Available ropivacaine (PF) 5 mg/mL (0.5 %) injection solution in office 2023 active Not Available Not Available Not Avai lable Fluzone High-Dose Quad (PF) 240 mcg/0.7 mL IM syringe PHARMACIS T ADMINISTE RED IMMUNIZAT ION ADMINISTE RED AT TIME OF DISPENSIN G 09/15 completed Not Available Not Available Not Available Vitals Date Recorded Body height Provider Name an d Address Organization Details Last Updated DateTime 09/27/2022 149.86 cm MJ Alvarez [place] [facility] 09/27/2022 13:41:05 Date Recorded Body height Body mass index (BMI) Body weight Provider Name and Address Organization Details Last Updated DateTime 12/27/2022 147.32 cm 33.9 kg/m2 63128.96 g Aylin Walsh [employer] [facility] [employer] [facility] 12/27/2022 15:19:07 Date Recorded Body height Provider Name an d Address Organization Details Last Updated DateTime 04/04/2023 147.32 cm Aylin Walsh [employer] [facility] [employer] [facility] 04/04/2023 14:17:13 Date Recorded Body height Provider Name an d Address Organization Details Last Updated DateTime 07/04/2023 147.32 cm Aylin Walsh [facility] 07/04/2023 14:25:13 Date Recorded Body height Provider Name an d Address Organization Details Last Updated DateTime 05/31/2022 149.86 cm Not Available [facility] 02:55:43 Social History Question Answer Notes LastModified by Organizat ion Details LastModified Time Tobacco Smoking Status Never Smoker Not Available [facility] 08/29/2022 02:39:18 What Was The Date Of Your Most Recent Tobacco Screening? 09/15/2020 [id number] Information not available 08/29/2022 Sex: Unknown Functional Status None recorded. Mental Status None recorded. Family History Relationship Description Onset Age of this Age Resolved Age Notes LastModified by Organization Details LastModified Time Father Heart disease [id number] [id number] Not available 08/29/2022 02:55:11 Father Family history of stroke [id number] Not available 08/29/2022 02:55:11 Mother Heart disease [id number] Not available 08/29/2022 02:55:11 Mother Family history of stroke [id number] Not available 08/29/2022 02:55:11 Unspecified Relation Family history of malignant neoplasm [id number] Not available 08/29/2022 02:55:11 Medical History Condition Response BLINDNESS N KIDNEY STONES N MRSA N CARPAL TUNNEL SYNDROME N LUNG DISEASE/DISORDER N HISTORY OF DRUG ABUSE N RADIATION / CHEMOTHERAPY N COPD N SPORTS INJURY N ANKLE PAIN N BLOOD DISEASES N SCHIZOPHRENIA N SHINGLES N SHOULDER PAIN N DEPRESSION (INCLUDING POST ) N BOWEL PROBLEMS N STROKE/TIA N ULCERS N KNEE PAIN N BENIGN PROSTATIC HYPERPLASIA N OBESITY N GERD/NAUSEA N ANEURYSM N URINARY/BLADDER/KIDNEY PROBLEMS N CORONARY ARTERY DISEASE (CAD) Y ADDICTION CONCERNS N USE OF BLOOD THINNERS N SKIN PROBLEMS N EMPHYSEMA N MUSCLE,JOINT OR BONE PROBLEMS N DVT N STOMACH ULCERS N BLOOD CLOTS N USE OF NSAIDS N CONCUSSION OR SPINAL TRAUMA N NEUROPATHY N AIDS/HIV N FRACTURES N HYPERTENSION Y ELBOW PAIN N TOURETTE'S N Metal allergy N ANXIETY DISORDER N BLOOD TRANSFUSION N ANEMIA/BLOOD DISORDER Y BIPOLAR DISORDER N BRONCHITIS N OSTEOARTHRITIS N TUBERCULOSIS N FOOT PROBLEM N HEART VALVE DISORDERS N ALLERGIES/HAYFEVER N SOFT TISSUE INJURY N INFECTIOUS DISEASE N HEART ARRHYTHMIA N INSOMNIA N HIGH CHOLESTEROL / HYPERLIPIDEMIA N RHEUMATOID ARTHRITIS N EDEMA N CHRONIC PAIN SYNDROME N CAROTID BLOCKAGE N BACK / NECK PROBLEMS N HAVE YOU BEEN HOSPITALIZED OR SEEN [facility] IN THE PAST YEAR ? N BURSITIS N HERNIATED DISC N DIALYSIS N FIBROMYALGIA N OSTEOPOROSIS Y ARTHRITIS Y NO SIGNIFICANT PAST MEDICAL HISTORY N PERIPHERAL NEUROPATHY N DIABETES, TYPE Y HEARTBURN / REFLUX N HEPATITIS / LIVER DISEASE N GOUT N ALZHEIMER'S DISEASE N SLEEP DISORDER N HERPES N HEADACHES/MIGRAINES N SEIZURES/EPILEPSY N VASCULAR DISEASE N Blood Disorder N HIP PAIN N DIZZINESS N HEAD TRAUMA OR INJURY N HEART DISEASE/HEART PROBLEMS Y MULTIPLE SCLEROSIS N CANCER: SPECIFY Y CARDIAC ARRHYTHMIA N ANESTHESIA COMPLICATIONS N ATRIAL FIBRILLATION N AUTOIMMUNE DISEASE N Gynecological HistoryNo gynecological history recorded. Obstetrics History GPAL:G 0 P 0 0 0 0 Past Encounters Encounter ID Performer Location Encounter Start Date Encounter Closed Date Diagnosis/Indication Diagnosis SNOMED-CT Code Diagnosis ICD10 Code Diagnosis Note [id number] [facility] [address] [address] 09/15/2020 00:00:00 09/15/2020 15:49:10 [id number] [facility] [address] [address] 12/15/2020 00:00:00 12/15/2020 14:15:49 [id number] [facility] [address] [address] 03/16/2021 00:00:00 03/16/2021 14:32:03 [id number] [facility] [address] [address] 08/31/2021 00:00:00 08/31/2021 11:54:28 [id number] [facility] [address] [address] 11/30/2021 00:00:00 11/30/2021 15:38:46 [id number] [facility] [address] [address] 03/01/2022 00:00:00 03/01/2022 15:34:24 [id number] [facility] [address] [address] 05/31/2022 00:00:00 05/31/2022 14:07:37 [id number] MAYO Matthews [facility] [address] [address] 09/27/2022 13:37:37 09/27/2022 13:57:35 Bilateral osteoarthritis of knees 5194192471 47376 M17.0 [id number] MAYO Matthews [facility] [address] [address] 12/27/2022 14:38:24 12/27/2022 16:24:11 Bilateral osteoarthritis of knees 7112972484 85353 M17.0 [id number] MAYO Matthews [facility] [address] [address] 04/04/2023 14:14:48 04/04/2023 15:06:43 Bilateral osteoarthritis of knees 3212839636 07577 M17.0 [id number] Mike Leslie MD [facility] [address] [address] 07/04/2023 14:18:06 07/04/2023 14:42:28 Bilateral osteoarthritis of knees 2710712271 85593 M17.0 Health Concerns Section Related Observation LastModified by Organization Detai ls LastModified Time None Recorded Concern Status LastModified by Organization Details LastModified Time None Recorded Advance Directives Directive None Recorded Payers Encounter Date Sequence Insurance Name Policy Number Policy Lay Covered Member ID Lay Member ID Guarantor Name 09/27/2022 1 [place] Cyndi Shin [id number] Cyndi Shin 09/27/2022 2 [employer] Cyndi A Basarich [id number] Cyndi A Basarich 12/27/2022 1 [place] Cyndi A Basarich [id number] Cyndi A Basarich 12/27/2022 2 [employer] Cyndi A Basarich [id number] Cyndi A Basarich 04/04/2023 1 [place] Cyndi A Basarich [id number] Cyndi A Basarich 04/04/2023 2 [employer] Cyndi A Basarich [id number] Cyndi A Basarich 07/04/2023 1 [place] Cyndi A Basarich [id number] Cyndi A Basarich 07/04/2023 2 [employer] Cyndi A Basarich [id number] Cyndi A Basarich OBGyn Episode No OBEpisode recorded.
--- OUTSIDE RECORDS SUMMARY | 2024-09-04 14:21 | XMS_ITS | Clinical Summary ---
Author Organization [facility] Facility Address [address] [place] [id number] Care Team Providers Care Extension Service Supervisor Name Role Phone Zack Miller MD Primary Care Provider [phone] Medications MAGnesium-Oxid e 400 (240 Mg) MG tablet TAKE 1 TABLET BY MOUTH ONCE DAILY IN THE MORNING 90 tablet 1 4 Active chlorthalidone 25 MG tablet TAKE 1 TABLET BY MOUTH ONCE DAILY IN THE MORNING 90 tablet 5 Active amLODIPine (NORVASC) 10 MG tablet TAKE 1 TABLET BY MOUTH AT BEDTIME 90 tablet 5 Active amLODIPine (NORVASC) 10 MG tablet TAKE 1 TABLET BY MOUTH AT BEDTIME 90 tablet 4 08/17/19 25 Discontinued Encounters Date Type Department Care Team Description 08/17/2024 Refill [facility] [address] [place] [phone] Emiliano Nagel DO 07/15/2024 Refill [facility] [address] [place] [address] [address] [place] [address] Jewel Cash MD from Last 3 Months Social History Tobacco Use Types Packs/Day Years [...] Sign Reading Time Taken Comments Blood Pressure 140/62 03/17/2024 1:09 PM CDT Pulse 60 03/17/2024 1:09 PM CDT Temperature 36.1 C (97 F) 03/17/2024 1:09 PM CDT Respiratory Rate 18 03/17/2024 1:09 PM CDT Oxygen Saturation 98% 03/17/2024 1:09 PM CDT Inhaled Oxygen Concentration - - Weight 73 kg (161 lb) 03/17/2024 1:09 PM CDT Height 152.4 cm (5') 08/28/2022 12:53 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 Body Mass Index 31.44 08/28/2022 12:53 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 Plan of Treatment Upcoming Encounters Date Type Department Care Team (Late st Contact Info) Description 09/15/2024 12:45 PM CDT Office Visit [facility] [address] [facility] [address] [place] [address] Emiliano Nagel DO [address] [facility] 1 [place] [address] Health Maintenance Due Date Last Done Comments Pneumococcal Vaccine: 65+ Ye ars (1 of 2 - PCV) 1951 Diabetes: Hemoglobin A1C 11/24/2020 Diabetes: Ophthalmology Exam 11/24/2020 Diabetes: Pedal Pulse Checked 11/24/2020 Diabetes: Sensory Foot Exam 11/24/2020 Diabetes: Visual Foot Exam 11/24/2020 Influenza Vaccine (#1) 2024 Hepatitis B Vaccine Aged Out No longe r eligible based on patient's age to complete this topic Insurance MEDICARE [facility] [place] [address] Care Teams Extension Service Supervisor Relationship Specialty Start Date End Date Zack Miller MD [address] [place], [place] [id number] PCP - General Family Medicine 05/16/21
--- OUTSIDE RECORDS SUMMARY | 2024-09-04 14:21 | XMS_ITS | Encounter Summary ---
Author Organization [facility] , [facility] Address [address] [facility] [place] [address] Phone Care Team Providers Care Pot Press Operator Name Role Phone Zack Miller MD Primary Care Provider [phone] Reason for Visit * Reason Comments Med Refill Encounter Details Date Type Department Care Team (Late st Contact Info) Description 02/19/2023 Refill [facility]ibel [facility], [facility] [address] [place] [address] 1 [place] [address] Emiliano Nagel DO [address] [facility] 1 [place] [address] Social History Tobacco Use Types [...] Description 09/15/2024 12:45 PM CDT Office Visit [facility], [facility] [address] [facility] [address] [place] [address] Emiliano Nagel DO [address] [facility] 1 [place] [address] documented as of this encounter Visit Diagnoses Not on filedocumented in this encounter Care Teams Pot Press Operator Relationship Specialty Start Date End Date Zack Miller MD [address] [place] [address] PCP - General Family Medicine 05/16/21 documented as of this encounter
[2024-09-04 14:40] LABS: Hematocrit 37.5 % (37.0-47.0); Hemoglobin 12.3 g/dL (12.0-15.0); Mean Corpuscular HGB Conc 32.8 g/dl (32-36); Mean Corpuscular Hemoglobin 34.9 pg (26-34); Mean Corpuscular Volume 106.5 fl (80-100); Mean Platelet Volume 12.1 fl (7.4-10.4); Platelet Count Result 140 k/mm3 (150-375); Red Blood Count 3.52 M/mm3 (4.2-5.4); Red Cell Distribution Width 13.3 % (11.5-14.5); White Blood Count 7.3 K/mm3 (4.5-10.0)
[2024-09-04 14:56] LABS: Albumin Level 4.4 g/dL (3.5-5.1); Anion Gap 9 mmol/L (4-12); Blood Urea Nitrogen 47 mg/dL (7-17); Calcium 10.1 mg/dL (8.4-10.2); Carbon Dioxide 28 mmol/L (22-30); Chloride 101 mmol/L (98-107); Estimated Glomerular Filt Rate 47; Glucose 89 mg/dL (65-110); Magnesium 2.3 mg/dL (1.6-2.3); Phosphorus 3.5 mg/dL (2.5-4.5); Potassium 4.9 mmol/L (3.4-5.0); Sodium 138 mmol/L (137-145)
[2024-09-04 15:06] LABS: Add Urine Microscopic? YES; Appearance Urine Clear (Clear); Bacteria Urine 4+ /hpf; Bilirubin Urine Negative (Negative); Blood Urine Negative (Negative); Color Urine Yellow (Yellow); Glucose Urine UA Negative (Negative); Ketones Urine Negative (Negative); Leukocyte Esterase Ur 1+ LEU/UL (Negative); Need Manual Microscopic Reviewed; Nitrate Urine Negative (Negative); Non Pathogenic Casts 0-2; Protein Urine Negative (Negative); RBC Urine 0-2 /hpf (0-2); Specific Grav Ur 1.011 (1.001-1.035); Squamous Epithelial Cell Urine Occasional /hpf (Few); Urobilinogen Urine 0.2 mg/dL (<2.0); WBC Urine 0-5 /hpf (0-3); pH Urine 6.5 (5.0-9.0)
[2024-09-04 15:10] LABS: Parathyroid Intact 111.3 pg/mL (14.5-75.2)
[2024-09-04 15:15] LABS: Vitamin D 25 Hydroxy 34.6 ng/mL
[2024-09-04 15:26] LABS: Creatinine Urine 37.8 mg/dL
[2024-09-04 15:31] LABS: MALB Creatinine Ratio 104.2 mg/g (0-30); Microalbumin Urine Random 39.4 mg/L (0-16.7)
[2024-09-06 07:08] LABS: Protein, Total 6.5 g/dL (6.1-8.1)
[2024-09-07 21:29] LABS: Abnormal Protein Band 1 0.6 g/dL (NONE DETECTED); Albumin 3.8 g/dL (3.8-4.8); Alpha 1 Globulin 0.3 g/dL (0.2-0.3); Alpha 2 Globulin 0.8 g/dL (0.5-0.9); Beta 1 Globulin 0.3 g/dL (0.4-0.6)
== END 2024-09-04 13:56 | disposition home or self-care (01) ==
LOC: ANHLAB 14:03
PROVIDERS: PCP Family Medicine; Visit Provider Internal Medicine Nephrology
DX: I12.9 Hypertensive chronic kidney disease with stage 1 through stage 4 chronic kidney disease, or unspecified chronic kidney disease (principal); E11.22 Type 2 diabetes mellitus with diabetic chronic kidney disease; N18.32 Chronic kidney disease, stage 3b; I25.84 Coronary atherosclerosis due to calcified coronary lesion; E78.00 Pure hypercholesterolemia, unspecified; D47.2 Monoclonal gammopathy; D75.89 Other specified diseases of blood and blood-forming organs
CPT/HCPCS: 36415; 80069; 81001; 82043; 82306; 82610; 83735; 83883; 83970; 84155; 84165; 85027

== ENCOUNTER 2024-12-28 12:09 | Outpatient (CLI) | payer MEDICARE, OTHER, SELFPAY ==
--- OUTSIDE RECORDS SUMMARY | 2024-12-28 12:15 | XMS_ITS | Clinical Summary ---
Author Organization [facility] Address [address] [place] [address] Phone Care Team Providers Care E Commerce Merchant Name Role Phone Unavailable Primary Care Provider Unavailabl e Medications LORazepam (ATIVAN) 1 MG tablet 1q6 prn 05/20/2014 Active aspirin (ASPIR-LOW) 81 MG EC tablet 05/20/2014 Active cholecalciferol (VITAMIN D-3) 2000 units capsule 11/17/2014 Active lisinopril (PRINIVIL,ZESTR IL) 20 MG tablet 1 bid 05/20/2014 Active Multiple Vitamin (MULTIVITAMIN) capsule 05/20/2014 Active furosemide (LASIX) 20 MG tablet 01/04/2015 Active [...] Packs/Day Years Used Date Smoking Tobacco: Never Comments Unknown Sex and Gender Information Value Date Recorded Sex Assigned at Not on file Legal Sex Female 9:21 AM MST Gender Identity Not on file Sexual Orientation [...]
--- OUTSIDE RECORDS SUMMARY | 2024-12-28 12:15 | XMS_ITS | Continuity of Care Document ---
Author Organization [facility] Address [address] [place] [address] Phone Care Team Providers Care Ecommerce Project Manager Name Role Phone Juan Maher Unavailable Unavailable [...] Diagnoses Date Provider Providers Copied on Encounter [facility], [address], [place], [place], [id number], [place] tel:[phone] SEC [facility] No Information 201 0 Nika Martinez. [address], [place], [place], [facility], [place]. tel:[phone] [facility], [address], [place], [place], [id number], [place] tel:[phone] [facility] No Information 5-201 0 Alton Hernandez. [address] [place], [place], [facility], [place]. tel:[phone] Referring Provider: David Hardwick, [address] [place], [place], [facility]. tel:[phone] [facility], [address], [place], [place], [id number], [place] tel:[phone] SEC [facility] No Information 6-201 0 Nika Martinez. [address], [place], [place], [facility], [place]. tel:[phone] [facility], [address], [place], [place], [id number], [place] tel:[phone] SEC [facility] No Information 9 Alton Hernandez. [address] [place], [place], [facility], [place]. tel:[phone] Referring Provider: Juan Rizvi, [address], [place], [facility]. tel:[phone] [facility], [address], [place], [place], [id number], [place] tel:[phone] SEC [facility] No Information 8200 9 Nika Martinez. [address] [facility] , [address], [place], [facility], [place]. tel:[phone] [facility], [address], [place], [place], [address], [place] tel:[phone] SEC [facility] No Information 9200 8 Alton Hernandez. [address] [place], [address], [place]. tel:[phone] Referring Provider: David Hardwick, [address] [place], [facility]. tel:[phone] [facility], [address], [place], [place], [address], [place] tel:[phone] [facility] [place] No Information Dec-0 3200 7 Nika Martinez. [address] [facility] [address], [place], [facility], [place]. tel:[phone] [facility], [address], [place], [place], [address], [place] tel:[phone] [facility] No Information 200 7 Alton Hernandez. [address] [place], [facility], [place]. tel:[phone] Office/outpat ient Visit, Est [facility], [address], [place], [place], [address], [place] tel:[phone] SEC [facility] No Information Feb-0 1200 7 Alton Hernandez. [address] [place], [facility], [place]. tel:[phone] Family History Family Member Type Diagnosis Age [...]
--- OUTSIDE RECORDS SUMMARY | 2024-12-28 12:15 | XMS_ITS | Clinical Summary ---
Author Organization [facility] [address] Address [address] [place] [address] Care Team Providers Care Powerplant Operator Name Role Phone Zack Miller MD Primary Care Provider [phone] Allergies Active Allergy Reactions Criticality Noted Date [...] (25 mg total) by mouth daily Active MAGNESIUM ORAL Take 400 mg by mouth daily Active albuterol HFA (PROVENTIL HFA,VENTOLIN HFA,PROAIR HFA) 90 mcg/actuation inhaler INHALE 1 PUFF BY MOUTH EVERY 4 HOURS NEEDED FOR WHEEZING OR SHORTNESS OF BREATH 3 Active gabapentin (NEURONTIN) 100 mg capsule Take 1 capsule (100 mg total) by mouth nightly Active carvediloL (COREG) 6.25 mg tablet TAKE 1 TABLET BY MOUTH EVERY 12 HOURS 180 tablet 3 Active Active Problems Problem Noted Date Diagnosed Date Allergy to iodinated contrast media 11/21/2023 Chronic heart failure with preserved ejection fr action 09/01/2021 SOB (shortness of breath) 09/30/2020 Aortic stenosis 09/30/2020 Pulmonary HTN 03/24/2020 Hypertension associated with diabetes 10/14/2018 H/O cardiomyopathy 10/14/2018 Nonischemic cardiomyopathy 03/17/2018 Coronary artery disease invo lving hoh coronary artery of hoh heart without angina pectoris 03/17/2018 Mixed diabetic [...] Tobacco: Never Tobacco Cessation:Counseling Given: Not Answered Comments Unknown Sex and Gender Information Value Date Recorded Sex Assigned at Not on file 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 Gender Identity Not on file Sexual Orientation Not on file Obstetrics History Last Filed Vital Signs Vital Sign Reading Time Taken Comments Blood Pressure 116/60 09/08/2024 2:02 PM CDT Pulse 60 09/08/2024 2:02 PM CDT Temperature 36.6 C (97.8 F) 03/25/2020 10:08 AM CDT Respiratory Rate 16 12/30/2017 2:20 PM CDT Oxygen Saturation 95% 09/08/2024 2:02 PM CDT Inhaled Oxygen Concentration - - Weight 73.9 kg (163 lb) 09/08/2024 2:02 PM CDT Height 152.4 cm (5') 09/08/2024 2:02 PM CDT Body Mass Index 31.83 09/08/2024 2:02 PM CDT Plan of Treatment Health Maintenance [...] 09/2021, 03/24/2020, Additional history exists Influenza Vaccine (Season Ended) 2025 04/22/2018, 07/06/2014, 04/02/2013 Procedures Procedure Name Priority Date/Time Associated Diagnosis Comments POCT LIPID PANEL Routine 10/22/2022 2:53 PM CDT Coronary artery disease involving hoh coronary artery of hoh heart without angina pectoris Mixed diabetic hyperlipidemia [...] - 02/22/2018 3:11 AM CDT Performed at: [facility] [address] [id number] Retinal Surgeon: Jarrod Grace PhD, Phone: [phone] us Desi Florian NP LAB BLOOD ORDERABLES Susan subramanian Result [facility] - 01 from Last 3 Months or Most Recently Relevant to Health Maintenance Insurance MEDICARE [facility] MEDICARE [facility] Care Teams Powerplant Operator Relationship Specialty Start Date End Date Zack Miller MD PCP - General Family Medicine 07/01/17
--- OUTSIDE RECORDS SUMMARY | 2024-12-28 12:15 | XMS_ITS | Data Portability ---
Author Organization [place] [facility] [place], Main Office Address 1 [place] [address] Care Team Providers Care Store Grocery Merchandiser Name Role Phone DON HECTOR Primary Care Provider DON HECTOR Referring Provider [phone] Assessment Encounter Date Assessment Date Assessment LastModified [...] procedure, administere d by provider 2023 024 [email or web address] In-Office Order, Internal Use Only DO Not Attach Compendium DO Not Attach Compendium, Do Not Delete/merge, [id number] 4 14:27:00 injection/a spiration joint/bursa (PROC) - in office procedure, administere d by provider 2022 023 [email or web address] In-Office Order, Internal Use Only DO Not Attach Compendium DO Not Attach Compendium, Do Not Delete/merge, 3 14:18:31 injection/a spiration joint/bursa (PROC) - in office procedure, administere d by provider 2022 023 [email or web address] In-Office Order, Internal Use Only DO Not Attach Compendium DO Not Attach Compendium, Do Not Delete/merge, [id number] 3 14:42:41 injection/a spiration joint/bursa (PROC) - in office procedure, administere d by provider 2022 023 [email or web address] In-Office Order, Internal Use Only DO Not Attach Compendium DO Not Attach Compendium, Do Not Delete/merge, 3 13:42:41 Surgeries None recorded. Imaging XR, knee 2022 023 [email or web address] [facility], [address] [place] [address], [place], [address], 3 16:24:11 Medication Orders Kenalog 10 mg/mL suspension for injection [address] [facility] [address] [facility], [address] [place] [address], [address], 4 14:49:53 ropivacaine (PF) 5 mg/mL (0.5 %) injection solution [address] [facility] [address] [facility], [address] [place] [address], [address], 4 14:49:53 Kenalog 10 mg/mL suspension for injection [address] [facility] [address] [facility], [address] [place] [address], [address], 3 10:07:11 ropivacaine (PF) 5 mg/mL (0.5 %) injection solution [address] [facility] [address] [facility], [address] [place] [address], [address], 3 10:07:11 Kenalog 10 mg/mL suspension for injection [address] [facility] [address] [facility], [address] [place] [address], [address], 3 12:20:02 ropivacaine (PF) 5 mg/mL (0.5 %) injection solution [address] [facility] [address] [facility], [address] [place] [address], [address], 3 12:20:02 Kenalog 10 mg/mL suspension for injection 2022 [facility]23 [email or web address] 3 14:07:34 ropivacaine (PF) 5 mg/mL (0.5 %) injection solution 2022 023 [email or web address] Not available 3 14:07:34 Patient TargetsNo targets recorded. Patient InstructionsNo instructions recorded. Reason for Referral None Reported. Results Created Date Observation Date Name Description Value Unit Range Abnormal Flag Note LastModifiedBy Organization Detail LastModifiedTime 12/28/19 23 XR, knee No observ ation record ed. [facility] [address], [place], [address], 12/27/2022 15:50:32 Result Notes None recorded. Problems Name Problem SNOMED Code Status Onset Date Resolution Date Notes Provider Name and Address Organization Details Recorded Time Bilateral osteoarthr itis of knees 3820303360293 07 Active 2022 MJ Alvarez, [place] - [facility] [employer] [facility] 3 13:41:32 Osteoarthr itis of hip 764034275 Active Not Available [facility] 3 03:06:38 Osteoarthr itis of knee 975455169 Active Not Available [facility] 3 03:06:38 Shoulder joint pain 687286237 Active Not Available [facility] 3 03:06:38 Enthesopat hy of hip region 98689609 Active Not Available [facility] 3 03:06:38 Osteoarthr itis 391051229 Active Not Available [facility] 3 03:06:38 Problem Notes None recorded. Procedures Surgical History Date Name Laterality Status Provider Name and Address Organization Details Recorded Time Hysterectomy completed Not Available [facility]/29[facility]20[facility] 02:55:10 Knee completed Not Available [facility] 07/2022 02:55:10 Imaging Results None recorded. Procedure Notes None recorded. Medical Equipment None Reported. Allergies Allergen ID Allergen Name Allergen Category Reaction Reaction Severity Criticality Documentation Date Start Date Code Code System Note Provider Name and Address Organization Details Recorded Time 5898 codeine medicatio n hives Not available Not available 08/29/2022 2670 RxNorm Not Available [facility] 3 03:28:40 80059 tramadol medicatio n Not available Not available Not available 12/27/2022 93508 RxNorm MJ Alvarez null, [place] - [facility] 3 15:14:00 Medications Name Sig Start Date [...] suspension for injection in office 2023 active [facility]: 0003- 0494- 20 Not Available Not Available [...] administe red by the provider 11/30 completed [facility]: 0409- 4276- 17 Not Available Not Available [...] Updated DateTime 07/04/2023 147.32 cm Aylin Walsh Belkys [facility] [employer] 07/04/2023 14:25:13 Date Recorded Body height Provider Name an d Address Organization Details Last Updated DateTime 09/27/2022 149.86 cm Aylin Walsh Belkys [facility] [employer] [facility] 09/27/2022 13:41:05 Date Recorded Body height Body mass index (BMI) Body weight Provider Name and Address Organization Details Last Updated DateTime 12/27/2022 147.32 cm 33.9 kg/m2 99659.96 g AylinMJ Martin [facility] 12/27/2022 15:19:07 Date Recorded Body height Provider Name an d Address Organization Details Last Updated DateTime 04/04/2023 147.32 cm MJ Alvarez [facility] 04/04/2023 14:17:13 Date Recorded Body height Provider Name an d Address Organization Details Last Updated DateTime 05/31/2022 149.86 cm Not Available [facility] 02:55:43 Social History Question Answer Notes LastModified by Organizat ion Details LastModified Time Tobacco Smoking Status Never Smoker Not Available [facility] 08/29/2022 02:39:18 What Was The Date Of Your Most Recent Tobacco Screening? 09/15/2020 [id number] Information not available 08/29/2022 Sex: Unknown Functional Status None recorded. Mental Status None recorded. Family History Relationship Description Onset Age of this Age Resolved Age Notes LastModified by Organization Details LastModified Time Father Heart disease [id number] Not available 08/29/2022 02:55:11 Father Family history of stroke [id number] Not available 08/29/2022 02:55:11 Mother Heart disease [id number] [id number] Not available 08/29/2022 02:55:11 Mother Family history of stroke [id number] Not available 08/29/2022 02:55:11 Unspecified Relation Family history of malignant neoplasm [id number] [id number] Not available 08/29/2022 02:55:11 Medical History Condition Response BLINDNESS N KIDNEY STONES N CARPAL TUNNEL SYNDROME N MRSA N LUNG DISEASE/DISORDER N HISTORY OF DRUG ABUSE N RADIATION / CHEMOTHERAPY N COPD N SPORTS INJURY N ANKLE PAIN N BLOOD DISEASES N SCHIZOPHRENIA N SHINGLES N BOWEL PROBLEMS N SHOULDER PAIN N DEPRESSION (INCLUDING POST ) N STROKE/TIA N KNEE PAIN N ULCERS N BENIGN PROSTATIC HYPERPLASIA N OBESITY N GERD/NAUSEA N ANEURYSM N URINARY/BLADDER/KIDNEY PROBLEMS N CORONARY ARTERY DISEASE (CAD) Y ADDICTION CONCERNS N USE OF BLOOD THINNERS N SKIN PROBLEMS N EMPHYSEMA N MUSCLE,JOINT OR BONE PROBLEMS N DVT N STOMACH ULCERS N BLOOD CLOTS N USE OF NSAIDS N CONCUSSION OR SPINAL TRAUMA N NEUROPATHY N AIDS/HIV N FRACTURES N ELBOW PAIN N HYPERTENSION Y TOURETTE'S N ANXIETY DISORDER N Metal allergy N BLOOD TRANSFUSION N ANEMIA/BLOOD DISORDER Y BIPOLAR DISORDER N BRONCHITIS N OSTEOARTHRITIS N TUBERCULOSIS N FOOT PROBLEM N HEART VALVE DISORDERS N ALLERGIES/HAYFEVER N SOFT TISSUE INJURY N INFECTIOUS DISEASE N HEART ARRHYTHMIA N INSOMNIA N RHEUMATOID ARTHRITIS N HIGH CHOLESTEROL / HYPERLIPIDEMIA N EDEMA N CHRONIC PAIN SYNDROME N CAROTID BLOCKAGE N BACK / NECK PROBLEMS N HAVE YOU BEEN HOSPITALIZED OR SEEN IN [facility] ER IN THE PAST YEAR ? N BURSITIS N HERNIATED DISC N DIALYSIS N FIBROMYALGIA N OSTEOPOROSIS Y ARTHRITIS Y NO SIGNIFICANT PAST MEDICAL HISTORY N PERIPHERAL NEUROPATHY N DIABETES, TYPE Y HEARTBURN / REFLUX N HEPATITIS / LIVER DISEASE N GOUT N SLEEP DISORDER N ALZHEIMER'S DISEASE N HERPES N SEIZURES/EPILEPSY N HEADACHES/MIGRAINES N VASCULAR DISEASE N HIP PAIN N Blood Disorder N DIZZINESS N HEAD TRAUMA OR INJURY N HEART DISEASE/HEART PROBLEMS Y MULTIPLE SCLEROSIS N CARDIAC ARRHYTHMIA N CANCER: SPECIFY Y ANESTHESIA COMPLICATIONS N ATRIAL FIBRILLATION N AUTOIMMUNE DISEASE N Gynecological HistoryNo gynecological history recorded. Obstetrics History GPAL:G 0 P 0 0 0 0 Past Encounters Encounter ID Performer Location Encounter Start Date Encounter Closed Date Diagnosis/Indication Diagnosis SNOMED-CT Code Diagnosis ICD10 Code Diagnosis Note [id number] MD BONI [facility] [address] [address] 09/15/2020 00:00:00 09/15/2020 15:49:10 [id number] MAYO [facility] [address] [address] 12/15/2020 00:00:00 12/15/2020 14:15:49 [id number] MD VANE [facility] [address] [address] 03/16/2021 00:00:00 03/16/2021 14:32:03 [id number] Mike Leslie MD [facility] [address] [address] 08/31/2021 00:00:00 08/31/2021 11:54:28 [id number] MAYO [facility] [address] [address] 11/30/2021 00:00:00 11/30/2021 15:38:46 [id number] Mike Anuj, MD [address] [address] 03/01/2022 00:00:00 03/01/2022 15:34:24 [id number] Mike Leslie MD [address] [address] 05/31/2022 00:00:00 05/31/2022 14:07:37 [id number] Mike Leslie MD [address] [address] 09/27/2022 13:37:37 09/27/2022 13:57:35 Bilateral osteoarthritis of knees 6941718595 56334 M17.0 [id number] Mike Leslie MD [address] [address] 12/27/2022 14:38:24 12/27/2022 16:24:11 Bilateral osteoarthritis of knees 7606761537 75623 M17.0 [id number] Mike Leslie MD [address] [address] 04/04/2023 14:14:48 04/04/2023 15:06:43 Bilateral osteoarthritis of knees 0129601239 83821 M17.0 [id number] Mike Leslie MD [address] [address] 07/04/2023 14:18:06 07/04/2023 14:42:28 Bilateral osteoarthritis of knees 3837487751 47896 M17.0 Health Concerns Section Related Observation LastModified by Organization Detai ls LastModified Time None Recorded Concern Status LastModified by Organization Details LastModified Time None Recorded Advance Directives Directive None Recorded Payers Insurance Date Sequence Insurance Name Policy Number Policy Lay Covered Member ID Lay Member ID Guarantor Name 12/23/2024 1 [place] Cyndi Shin [id number] Cyndi Shin 12/23/2024 2 [employer] F Cyndi Shin [id number] Cyndi Shin OBGyn Episode No OBEpisode recorded.
--- OUTSIDE RECORDS SUMMARY | 2024-12-28 12:15 | XMS_ITS | Referral Summary ---
Author Organization [facility] [address] Address [address] [place] [address] Care Team Providers Care Robotics Engineer Name Role Phone Zack Miller MD Primary Care Provider [phone] Allergies Active Allergy Reactions Criticality Noted Date [...] cardiomyopathy 03/17/2018 Coronary artery disease invo lving paskenta coronary artery of [place] heart without angina pectoris 03/17/2018 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 diabetes mellitus (CMS/HCC) 03/17/2018 Stage 2 chronic kidney disease 03/17/2018 Social History Tobacco Use Types Packs/Day Years Used Date Smoking Tobacco: Never Smokeless Tobacco: Never Tobacco Cessation:Counseling Given: Not Answered Comments Unknown Sex and Gender Information Value Date Recorded Sex Assigned at Not on file 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 Gender Identity Not on file Sexual Orientation [...] 09/08/2024 2:02 PM CDT Plan of Treatment Not on file Procedures Procedure Name Priority Date/Time Associated Diagnosis Comments POCT LIPID PANEL Routine 10/22/2022 2:53 PM CDT Coronary artery disease involving paskenta coronary artery of paskenta heart without angina pectoris Mixed diabetic hyperlipidemia associated with type 2 diabetes mellitus (CMS/HCC) ([facility]) BASIC METABOLIC PANEL Routine 02/21/2018 9:58 AM [...] - 02/22/2018 3:11 AM CDT Performed at: 01 - [address] [id number] Motor Vehicle Lecturer: Jarrod Grace PhD, Phone: [phone] Desi Florian NP LAB BLOOD ORDERABLES Susan l Result [facility] - 01 from Last 3 Months or Most Recently Relevant to Health Maintenance Insurance MEDICARE [facility] MEDICARE [facility] Care Teams Robotics Engineer Relationship Specialty Start Date End Date Zack Miller MD PCP - General Family Medicine 07/01/17
--- OUTSIDE RECORDS SUMMARY | 2024-12-28 12:15 | XMS_ITS | Clinical Summary ---
Author Organization [facility] José Miguel Sandoval Address [facility] [place] [address] Care Team Providers Care Tight Barrel Inspector Name Role Phone Zack Miller MD Primary Care Provider [phone] Allergies Active Allergy Reactions Criticality Noted Date [...] 2020 INFLUENZA VACCINE (#1) 2024 Care Teams Tight Barrel Inspector Relationship Specialty Start Date End Date Zack Miller MD [address] [place] [address] PCP - General Family Practice 01/19/20
[2024-12-28 12:54] LABS: Hematocrit 31.9 % (37.0-47.0); Hemoglobin 10.2 g/dL (12.0-15.0); Immature Platelet Fraction Pct 9.7 % (0.9-11.2); Mean Corpuscular Hemoglobin 35.3 pg (26-34); Mean Corpuscular Volume 110.4 fl (80-100); Platelet Count Result 128 k/mm3 (150-375); Red Blood Count 2.89 M/mm3 (4.2-5.4); Red Cell Distribution Width 14.1 % (11.5-14.5); White Blood Count 6.7 K/mm3 (4.5-10.0)
[2024-12-28 13:05] LABS: Anion Gap 9 mmol/L (4-12); Blood Urea Nitrogen 75 mg/dL (7-17); Calcium 10.2 mg/dL (8.4-10.2); Carbon Dioxide 23 mmol/L (22-30); Chloride 109 mmol/L (98-107); Estimated Glomerular Filt Rate 40; Glucose 88 mg/dL (65-110); Magnesium 2.2 mg/dL (1.6-2.3); Potassium 5.3 mmol/L (3.4-5.0); Sodium 141 mmol/L (137-145)
[2024-12-28 13:40] LABS: Vitamin D 25 Hydroxy 32.6 ng/mL
[2024-12-28 14:26] LABS: Creatinine Urine 43.2 mg/dL
[2024-12-28 14:37] LABS: MALB Creatinine Ratio < 13.9 mg/g (0-30); Microalbumin Urine Random < 6.0 mg/L (0-16.7)
[2024-12-28 15:06] LABS: CRP. < 0.5 mg/dL (<1.0); Uric Acid 4.8 mg/dL (2.5-7.5)
[2024-12-28 15:08] LABS: Rheumatoid Factor. < 12.0 IU/ML (<12)
[2024-12-28 15:36] LABS: Erythrocyte Sedimentation Rate 114 mm/hr (0-20)
[2024-12-30 11:53] LABS: Cystatin C 2.48 mg/L (0.52-1.10); eGFR 20 (> OR = 60)
== END 2024-12-28 12:10 | disposition home or self-care (01) ==
PROVIDERS: Orthopaedic Surgery; PCP Family Medicine; Visit Provider Internal Medicine Nephrology
DX: I12.9 Hypertensive chronic kidney disease with stage 1 through stage 4 chronic kidney disease, or unspecified chronic kidney disease (principal); E11.22 Type 2 diabetes mellitus with diabetic chronic kidney disease; N18.32 Chronic kidney disease, stage 3b; I25.84 Coronary atherosclerosis due to calcified coronary lesion; E78.00 Pure hypercholesterolemia, unspecified; M25.562 Pain in left knee
CPT/HCPCS: 36415; 80069; 82043; 82306; 82610; 83735; 84550; 85027; 85055; 85652; 86140; 86430

== ENCOUNTER 2024-12-29 12:52 | Outpatient (NON) | payer MEDICARE, OTHER, SELFPAY ==
--- OUTSIDE RECORDS SUMMARY | 2024-12-29 13:00 | XMS_ITS | Clinical Summary ---
Author Organization [facility] Address [address] [place] [address] Phone Care Team Providers Care Controls Project Engineer Name Role Phone Unavailable Primary Care Provider [...]
--- OUTSIDE RECORDS SUMMARY | 2024-12-29 13:00 | XMS_ITS | Referral Summary ---
Author Organization [facility] [address] Address [address] [place] [address] Care Team Providers Care Rhic Systems Safety Engineer Name Role Phone Zack Miller MD Primary Care Provider Allergies Active Allergy Reactions Criticality Noted Date [...] cardiomyopathy 03/17/2018 Coronary artery disease invo lving [place] coronary artery of [place] heart without angina pectoris 03/17/2018 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 diabetes mellitus (CMS/HCC) 03/17/2018 Stage 2 chronic kidney disease 03/17/2018 Social History Tobacco Use Types Packs/Day Years Used Date Smoking Tobacco: Never Smokeless Tobacco: Never Tobacco Cessation:Counseling Given: Not Answered Comments Unknown Sex and Gender Information Value Date Recorded Sex Assigned at Not on file 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 Gender Identity Not on file Sexual Orientation [...] 2:53 PM CDT Coronary artery disease involving [place] coronary artery of [place] heart without angina pectoris Mixed diabetic hyperlipidemia associated with type 2 diabetes mellitus (CMS/HCC) ([facility]) BASIC METABOLIC PANEL Routine 02/21/2018 9:58 AM [...] 3:11 AM CDT Performed at: 01 - [address] [id number] Radiocommunications Technician: Jarrod Grace PhD, Phone: [phone] Desi Florian NP LAB BLOOD ORDERABLES Susan l Result [facility] - 01 from Last 3 Months or Most Recently Relevant to Health Maintenance Insurance MEDICARE [facility] MEDICARE [facility] Care Teams Rhic Systems Safety Engineer Relationship Specialty Start Date End Date Zack Miller MD PCP - General Family Medicine 07/01/17
--- OUTSIDE RECORDS SUMMARY | 2024-12-29 13:00 | XMS_ITS | Encounter Summary ---
Author Organization [facility] Address [address] [facility] [place] [address] Phone Care Team Providers Care International Representative Name Role Phone Zack Miller MD Primary Care Provider Encounter Details Date Type Department Care Team (Late st Contact Info) Description 12/29/2024 Documentation Only [place] [facility] [address] [place] [address] 1 [place] [address] Emiliano Nagel DO [address] [facility] 1 [place] [address] Social History Tobacco Use Types [...] Care Team (Late st Contact Info) Description 01/05/2025 3:00 PM CDT Office Visit [place] [facility] [address] [place] [address] 15 [place] [address] Emiliano Nagel DO 12[address] [facility] 1 [place] [address] documented as of this encounter Visit Diagnoses Not on filedocumented in this encounter Care Teams International Representative Relationship Specialty Start Date End Date Zack Miller MD [address] [address] PCP - General Family Medicine 05/16/21 documented as of this encounter
--- OUTSIDE RECORDS SUMMARY | 2024-12-29 13:00 | XMS_ITS | Encounter Summary ---
Author Organization [facility] [facility] Address [address] [facility] [place] [address] Phone Care Team Providers Care Associate Vice President Name Role Phone Zack Miller MD Primary Care Provider [phone] Encounter Details Date Type Department Care Team (Late st Contact Info) Description 12/29/2024 Documentation Only [place] [facility] [address] [place] [address] 1 [place] [address] Emiliano Nagel DO [address] [facility] 1 [place] [address] Social History Tobacco Use Types [...] Description 01/05/2025 3:00 PM CDT Office Visit [place] [facility] [address] [place] [address] 15 [place] [address] Emiliano Nagel DO [address] [facility] 1 [place] [address] documented as of this encounter Visit Diagnoses Not on filedocumented in this encounter Care Teams Associate Vice President Relationship Specialty Start Date End Date Zack Miller MD [address] [address] PCP - General Family Medicine 05/16/21 documented as of this encounter
--- OUTSIDE RECORDS SUMMARY | 2024-12-29 13:00 | XMS_ITS | Encounter Summary ---
Author Organization [facility] Personally [facility] [employer] [facility] Address [facility] [address] Phone Care Team Providers Care Vp & General Counsel Name Role Phone Zack Miller MD Primary Care Provider [phone] Reason for Visit * Reason Onset Date Comments Med Refill Med Refill 01/26/2021 Encounter Details Date Type Department Care Team (Late st Contact Info) Description 01/24/2021 Refill [facility] Emergency Department, [facility] [address] [place] [address] Emiliano Nagel DO [address] [address] Social History Tobacco Use Types [...] Description 01/05/2025 3:00 PM CDT Office Visit [facility] [facility] Emergency Department, [facility] [address] [facility] 15 [place] [address] Emiliano Nagel DO 1265 [facility] 1 [place] [address] documented as of this encounter Visit Diagnoses Not on filedocumented in this encounter Care Teams Vp & General Counsel Relationship Specialty Start Date End Date Zack Miller MD [address] [place] [address] PCP - General Family Medicine 05/16/21 documented as of this encounter
--- OUTSIDE RECORDS SUMMARY | 2024-12-29 13:00 | XMS_ITS | Clinical Summary ---
Author Organization [facility] José Miguel Sandoval Address [facility] [place] [address] Care Team Providers Care Drill Setup Operator Name Role Phone Zack Miller MD Primary Care Provider [phone] Allergies Active Allergy Reactions Criticality Noted Date [...] 1-dose 75+ series) 2020 INFLUENZA VACCINE (#1) 2025 Care Teams Drill Setup Operator Relationship Specialty Start Date End Date Zack Miller MD [address] [place] [address] PCP - General Family Practice 01/19/20
--- OUTSIDE RECORDS SUMMARY | 2024-12-29 13:00 | XMS_ITS | Clinical Summary ---
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 Gender Identity Not on file Sexual Orientation [...] 2:53 PM CDT Coronary artery disease involving [place] coronary artery of [place] heart without angina pectoris Mixed diabetic hyperlipidemia [...] 02/22/2018 3:11 AM CDT Performed at: [facility] [address] [id number] Data Warehouse Manager: Jarrod Grace PhD, Phone: [phone] us Desi Florian NP LAB BLOOD ORDERABLES Susan subramanian Result [facility] - 01 from Last 3 Months or Most Recently Relevant to Health Maintenance Insurance MEDICARE [facility] MEDICARE [facility] Address: [address] [address] [facility] Care Teams Flying Ii Instructor Relationship Specialty Start Date End Date Zack Miller MD PCP - General Family Medicine 07/01/17
--- OUTSIDE RECORDS SUMMARY | 2024-12-29 13:00 | XMS_ITS | Continuity of Care Document ---
Author Organization [facility] Address [address] [place] [address] Phone Care Team Providers Care Master Brewer Name Role Phone Juan Maher Unavailable Unavailable [...] Diagnoses Date Provider Providers Copied on Encounter [facility], [address], [place], [place], [id number], [place] tel:[phone] SEC [facility] Corporate Center No Information 201 0 Nika Martinez. [address], [place], [place], [facility], [place]. tel:[phone] [facility], [address], [place], [place], [id number], [place] tel:[phone] [facility] Corporate [facility] No Information 5-201 0 Alton Hernandez. 12 [place], [place], [facility], [place]. tel:[phone] Referring Provider: David Hardwick, 12 [place], [place], [facility]. tel:[phone] [facility], [address], [place], [place], [id number], [place] tel:[phone] [facility] Corporate Center No Information 6-201 0 Nika Martinez. [address], [place], [facility], [place]. tel:[phone] [facility], [address], [place], [place], [address], [place] tel:[phone] SEC [facility] No Information 9 Alton Hernandez. 12 [place], [place], [facility], [place]. tel:[phone] Referring Provider: Juan Rizvi, [address], [place], [facility]. tel:[phone] [facility], [address], [place], [place], [address], [place] tel:[phone] [facility] Corporate [facility] No Information 8200 9 Nika Martinez. [address] [facility] , [address], [place], [facility], [place]. tel:[phone] [facility], [address], [place], [place], [address], [place] tel:[phone] [facility] No Information 9200 8 Alton Hernandez. 12 [place], [address], [place]. tel:[phone] Referring Provider: David Hardwick, 12 [place], [facility]. tel:[phone] [facility] Eye [facility], [address], [place], [place], [address], [place] tel:[phone] [facility] No Information Dec-0 3200 7 Nika Martinez. [address], [place], [facility], [place]. tel:[phone] [facility], [address], [place], [place], [id number], [place] tel:[phone] [facility] No Information 200 7 Alton Hernandez. 12 [place], [facility], [place]. tel:[phone] Office/outpat ient Visit, Est [facility], [address], [place], [place], [address], [place] tel:[phone] [facility] No Information Feb-0 1200 7 Alton Hernandez. 12 [place], [place], [facility], [place]. tel:[phone] Family History Family Member Type Diagnosis Age [...]
--- OUTSIDE RECORDS SUMMARY | 2024-12-29 13:01 | XMS_ITS | Clinical Summary ---
Author Organization [facility] Address [address] [place] [address] Care Team Providers Care Director Of Quality Control Name Role Phone Zack Miller MD Primary Care Provider [phone] Medications chlorthalidone 25 MG tablet TAKE 1 TABLET BY MOUTH ONCE DAILY IN THE MORNING 90 tablet 3 5 Active MAGnesium-Oxid e 400 (240 Mg) MG tablet TAKE 1 TABLET BY MOUTH ONCE DAILY IN THE MORNING 90 tablet 5 Active olmesartan (BENICAR) 5 MG tablet TAKE 2 TABLETS BY MOUTH AT BEDTIME 180 tablet 5 Active amLODIPine (NORVASC) 5 MG tablet TAKE 1 TABLET BY MOUTH AT BEDTIME 90 tablet 5 Active olmesartan (Benicar) 5 MG tablet Take 2 tablets (10 mg total) by mouth at bed time 180 tablet 5 12/15/19 25 Discontinued amLODIPine (NORVASC) 5 MG tablet Take 1 tablet (5 mg total) by mouth at bed time 90 tablet 5 12/15/19 25 Discontinued Encounters Date Type Department Care Team Description 12/29/2024 Documentation Only [facility], [address] [phone] Emiliano Nagel, 12/29/2024 Documentation Only [facility], [address] [phone] Emiliano Nagel, 12/23/2024 Documentation Only [facility], [facility] [address] [facility] [address] 1 [place] [address] Emiliano Nagel, DO 12/12/2024 Refill [facility], [facility] [address] [address] Emiliano Nagel, DO 11/25/2024 Refill [facility], [facility] [address] [address] Emiliano Nagel, DO 10/08/2024 Refill [facility], [facility] [address] [address] Jewel Cash MD from Last 3 [...] Sign Reading Time Taken Comments Blood Pressure 118/50 09/15/2024 12:40 PM CDT Pulse 61 09/15/2024 12:40 PM CDT Temperature 36.1 C (97 F) 03/17/2024 1:09 PM CDT Respiratory Rate 18 09/15/2024 12:40 PM CDT Oxygen Saturation 95% 09/15/2024 12:40 PM CDT Inhaled Oxygen Concentration - - Weight 73.5 kg (162 lb) 09/15/2024 12:40 PM CDT Height 152.4 cm (5') 09/15/2024 12:40 PM CDT Body Mass Index 31.64 09/15/2024 12:40 PM CDT Plan of Treatment Upcoming Encounters Date Type Department Care Team (Late st Contact Info) Description 01/05/2025 3:00 PM CDT Office Visit [facility], [facility] [address] [address] Emiliano Nagel DO [address] [place] [address] Health Maintenance Due Date Last Done Comments Pneumococcal Vaccine: 50+ Ye ars (1 of 2 - PCV) 1964 Diabetes: Hemoglobin A1C 11/24/2020 Diabetes: Ophthalmology Exam 11/24/2020 Diabetes: Pedal Pulse Checked 11/24/2020 Diabetes: Sensory Foot Exam 11/24/2020 Diabetes: Visual Foot Exam 11/24/2020 Influenza Vaccine (#1) 2025 Hepatitis B Vaccine Aged Out No longe r eligible based on patient's age to complete this topic Insurance Medicare [facility] [place] [id number] Care Teams Director Of Quality Control Relationship Specialty Start Date End Date Zack Miller MD [address] [address] PCP - General Family Medicine 05/16/21
--- OUTSIDE RECORDS SUMMARY | 2024-12-29 13:01 | XMS_ITS | Encounter Summary ---
Author Organization [facility] Address [address] [facility] [place] [address] Phone Care Team Providers Care Grades 1 6 Tutor Name Role Phone Zack Miller MD Primary Care Provider [phone] Reason for Visit * Reason Comments Med Refill Encounter Details Date Type Department Care Team (Late st Contact Info) Description 05/27/2024 Refill [facility] [address] [phone] Emiliano Nagel DO 12[address] [facility] 1 [place] [address] Social History Tobacco Use Types [...] Department Care Team (Late Contact Info) Description 01/05/2025 3:00 PM CDT Office Visit [place] [facility] [address] [phone] Emiliano Nagel DO [address] [facility] [place] [address] documented as of this encounter Visit Diagnoses Not on filedocumented in this encounter Care Teams Grades 1 6 Tutor Relationship Specialty Start Date End Date Zack Miller MD [address] [place] [address] PCP - General Family Medicine 05/16/21 documented as of this encounter
--- OUTSIDE RECORDS SUMMARY | 2024-12-29 13:01 | XMS_ITS | Encounter Summary ---
Author Organization [facility] , [facility] Address [address] [facility] [place] [address] Phone Care Team Providers Care Principal Java Developer Name Role Phone Zack Miller MD Primary Care Provider [phone] Reason for Visit * Reason Comments Med Refill Encounter Details Date Type Department Care Team (Late st Contact Info) Description 02/19/2023 Refill [facility] [place] [facility], [facility] [address] [place] [address] 1 [place] [address] Emiliano Nagel DO 12[address] [facility] 1 [place] [address] Social History Tobacco Use Types [...] Description 01/05/2025 3:00 PM CDT Office Visit [facility], [facility] [address] [facility] 15 [place] [address] Emiliano Nagel DO 12[address] [facility] 1 [place] [address] documented as of this encounter Visit Diagnoses Not on filedocumented in this encounter Care Teams Principal Java Developer Relationship Specialty Start Date End Date Zack Miller MD [address] [place] [address] PCP - General Family Medicine 05/16/21 documented as of this encounter
[2024-12-31 13:08] LABS: Anti Cyclic Citrullinated Pept <16 UNITS
== END 2024-12-29 12:53 | disposition home or self-care (01) ==
PROVIDERS: PCP Family Medicine; Visit Provider Orthopaedic Surgery
DX: M25.562 Pain in left knee (principal)
CPT/HCPCS: 86038; 86039; 86200

== ENCOUNTER 2025-01-08 12:41 | Outpatient (CLI) | payer MEDICARE, SELFPAY ==
--- OUTSIDE RECORDS SUMMARY | 2025-01-08 12:46 | XMS_ITS | Encounter Summary ---
Author Organization [employer] [facility] Address [address] [place] [address] Phone Care Team Providers Care Electronic News Gathering Editor Name Role Phone Zack Miller MD Primary Care Provider [phone] Encounter Details Date Type Department Care Team (Late st Contact Info) Description 01/08/2025 Office Communication [place] [employer] [address] [address] Emiliano Nagel DO 12[address] [facility] 1 [place] [address] Social History Tobacco Use Types [...] on file documented as of this encounter Miscellaneous Notes * Telephone Encounter - Aria Jackson CMA - 01/08/2025 12:02 PM CDT advise * Telephone Encounter - Elmira Reyes - 01/08/2025 11:59 AM CDT Patient called and said she is not going to take the oxybutynin XL (DITROPAN-XL) 10 MG 24 hr tablet that ordered for her. It causes confusion and she said she is already confused enough. Thank you documented in this encounter Plan of Treatment Upcoming Encounters Date Type Department Care Team (Late st Contact Info) Description 04/13/2025 2:00 PM CDT Office Visit [facility], [facility] [address] [facility] 15 [place] [address] Emiliano Nagel DO 12[address] [facility] 1 [place] [address] documented as of this encounter Visit Diagnoses Not on filedocumented in this encounter Care Teams Electronic News Gathering Editor Relationship Specialty Start Date End Date Zack Miller MD [address] [place] [address] PCP - General Family Medicine 05/16/21 documented as of this encounter
--- OUTSIDE RECORDS SUMMARY | 2025-01-08 12:46 | XMS_ITS | Clinical Summary ---
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 Gender Identity Not on file Sexual Orientation [...] 03/24/2020, Additional history exists Influenza Vaccine (#1) 2025 8, 07/06/2014, 04/02/2013 Procedures Procedure Name Priority Date/Time Associated Diagnosis Comments POCT LIPID PANEL Routine 10/22/2022 2:53 PM CDT Coronary artery disease involving [place] coronary artery of [place] heart without angina pectoris Mixed diabetic hyperlipidemia [...] 02/22/2018 3:11 AM CDT Performed at: [facility] [place] [id number] Professor Of Practice: Jarrod Grace PhD, Phone: [phone] us Desi Florian NP LAB BLOOD ORDERABLES Susan subramanian Result Performing Organization Address City/State/[facility] Co de Phone Number [facility] - 01 from Last 3 Months or Most Recently Relevant to Health Maintenance Insurance MEDICARE [facility] MEDICARE [facility] Address: [address] [address] [facility] Care Teams Supervisor Mixing Relationship Specialty Start Date End Date Zack Miller MD PCP - General Family Medicine 07/01/17
--- OUTSIDE RECORDS SUMMARY | 2025-01-08 12:46 | XMS_ITS | Encounter Summary ---
Author Organization [facility] [employer] [facility] Address [address] [facility] [place] [address] Phone Care Team Providers Care Spring Tier Name Role Phone Zack Miller MD Primary Care Provider [phone] Reason for Visit * Reason Comments Med Refill Encounter Details Date Type Department Care Team (Late st Contact Info) Description 05/27/2024 Refill [place] [employer] [facility] [address] [phone] Emiliano Nagel DO 12[address] [facility] 1 [place] [address] Social History Tobacco Use Types [...] Department Care Team (Late Contact Info) Description 04/13/2025 2:00 PM CDT Office Visit [place] [facility] [address] [phone] Emiliano Nagel DO [address] [facility] [place] [address] documented as of this encounter Visit Diagnoses Not on filedocumented in this encounter Care Teams Spring Tier Relationship Specialty Start Date End Date Zack Miller MD [address] [place] [address] PCP - General Family Medicine 05/16/21 documented as of this encounter
--- OUTSIDE RECORDS SUMMARY | 2025-01-08 12:46 | XMS_ITS | Clinical Summary ---
Author Organization [facility] Facility Address [address] [place] [address] Care Team Providers Care Teletype Technician Name Role Phone Zack Miller MD Primary Care Provider [phone] Medications chlorthalidone 25 MG tablet TAKE 1 TABLET BY MOUTH ONCE DAILY IN THE MORNING 90 tablet 3 10/09/19 25 Active MAGnesium-Oxid e 400 (240 Mg) MG tablet TAKE 1 TABLET BY MOUTH ONCE DAILY IN THE MORNING 90 tablet 11/26/19 25 Active olmesartan (BENICAR) 5 MG tablet TAKE 2 TABLETS BY MOUTH AT BEDTIME 180 tablet 12/15/19 25 Active amLODIPine (NORVASC) 5 MG tablet TAKE 1 TABLET BY MOUTH AT BEDTIME 90 tablet 12/15/19 25 Active oxybutynin XL (DITROPAN-XL) 10 MG 24 hr tablet Take 1 tablet (10 mg total) by mouth 1 (one) time each day Do not crush, chew, or split. 30 tablet 5 01/06/20 25 Active olmesartan (Benicar) 5 MG tablet Take 2 tablets (10 mg total) by mouth at bed time 180 tablet 09/16/19 25 025 Discontinued amLODIPine (NORVASC) 5 MG tablet Take 1 tablet (5 mg total) by mouth at bed time 90 tablet 09/16/19 25 025 Discontinued oxybutynin XL (DITROPAN-XL) 10 MG 24 hr tablet Take 10 mg by mouth 1 (one) time each day Do not crush, chew, or split. 025 Discontinued(Re order (does not appear on AVS)) Encounters Date Type Department Care Team Description 01/08/2025 Office Communication [facility], [address] [address] Emiliano Nagel, 01/05/2025 3:00 PM CDT Office Visit [facility], [facility] [address] [facility] 15 [place] [phone] Emiliano Nagel, DO Stage 3b chronic kidney disease (HCC) (Primary Dx); Coronary artery disease due to calcified coronary lesion; Diastolic dysfunction; Hypertensive chronic kidney disease; Type 2 diabetes mellitus with diabetic chronic kidney disease (HCC); Pure hypercholesterolemi a, not otherwise specified; Monoclonal gammopathy of undetermined significance (MGUS) 01/05/2025 Refill [facility], [facility] 20[address] [facility] 15 [place] [address] Aria Jackson CMA 01/05/2025 Documentation Only [facility], [address] [address] Emiliano Nagel, 12/30/2024 Documentation Only [facility], [address] [address] Emiliano Nagel, 12/29/2024 Documentation Only [facility], [address] [address] Emiliano Nagel, DO 12/29/2024 Documentation Only [facility], [address] [address] Emiliano Nagel, 12/23/2024 Documentation Only [facility], [address] [address] Emiliano Nagel, 12/12/2024 Refill [facility], [facility] [address] [facility] 15 [place] [address] Emiliano Nagel DO 11/25/2024 Refill [facility], [facility] [address] [facility] 15 [place] [address] Emiliano Nagel DO from Last 3 Months Social History Tobacco [...] Sign Reading Time Taken Comments Blood Pressure 130/70 01/05/2025 3:19 PM CDT Pulse 57 01/05/2025 3:19 PM CDT Temperature 36.7 C (98 F) 01/05/2025 3:19 PM CDT Respiratory Rate 18 01/05/2025 3:19 PM CDT Oxygen Saturation 97% 01/05/2025 3:19 PM CDT Inhaled Oxygen Concentration - - Weight 71.2 kg (157 lb) 01/05/2025 3:19 PM CDT Height 152.4 cm (5') 09/15/2024 12:40 PM CDT Body Mass Index 30.66 09/15/2024 12:40 PM CDT Plan of Treatment Upcoming Encounters Date Type Department Care Team (Late st Contact Info) Description 04/13/2025 2:00 PM CDT Office Visit [facility], [facility] [address] [phone] Emiliano Nagel DO 1265 [facility] 1 [place] [address] Health Maintenance Due Date Last [...] age to complete this topic Insurance Medicare [facility] Care Teams Teletype Technician Relationship Specialty Start Date End Date Zack Miller MD [address] [place] [address] PCP - General Family Medicine 05/16/21
--- OUTSIDE RECORDS SUMMARY | 2025-01-08 12:46 | XMS_ITS | Data Portability ---
Author Organization [place] [facility] [employer], Main Office Address 1 [place] [address] Care Team Providers Care Hospice Care Transitions Coordinator Name Role Phone DON HECTOR Primary Care Provider [phone] DON HECTOR Referring Provider [phone] Assessment Encounter Date Assessment Date Assessment LastModified [...] procedure, administere d by provider 2023 024 [email or web address] In-Office Order, Internal Use Only DO Not Attach Compendium DO Not Attach Compendium, Do Not Delete/merge, [id number] 4 14:27:00 injection/a spiration joint/bursa (PROC) - in office procedure, administere d by provider 2022 023 [email or web address] In-Office Order, Internal Use Only DO Not Attach Compendium DO Not Attach Compendium, Do Not Delete/merge, 3 14:18:31 injection/a spiration joint/bursa (PROC) - in office procedure, administere d by provider 2022 023 [email or web address] In-Office Order, Internal Use Only DO Not Attach Compendium DO Not Attach Compendium, Do Not Delete/merge, [id number] 3 14:42:41 injection/a spiration joint/bursa (PROC) - in office procedure, administere d by provider 2022 023 [email or web address] In-Office Order, Internal Use Only DO Not Attach Compendium DO Not Attach Compendium, Do Not Delete/merge, 3 13:42:41 Surgeries None recorded. Imaging XR, knee 2022 023 [email or web address] [facility], [address] [place] [address], [place], [address], 3 16:24:11 Medication Orders Kenalog 10 mg/mL suspension for injection [address] [facility], [address] [place] [address], [address], 4 14:49:53 ropivacaine (PF) 5 mg/mL (0.5 %) injection solution [address] [facility], [address] [place] [address], [address], 4 14:49:53 Kenalog 10 mg/mL suspension for injection [address] [facility], [address] [place] [address], [address], 3 10:07:11 ropivacaine (PF) 5 mg/mL (0.5 %) injection solution [address] [facility], [address] [place] [address], [address], 3 10:07:11 Kenalog 10 mg/mL suspension for injection [address] [facility], [address] [place] [address], [address], 3 12:20:02 ropivacaine (PF) 5 mg/mL (0.5 %) injection solution [address] [facility], [address] [place] [address], [address], 3 12:20:02 Kenalog 10 mg/mL suspension for [...] No observ ation record ed. [facility] [address], [place], [address], 12/27/2022 15:50:32 Result Notes None recorded. Problems Name Problem SNOMED Code Status Onset Date Resolution Date Notes Provider Name and Address Organization Details Recorded Time Bilateral osteoarthr itis of knees 0499131431866 07 Active 2022 MJ Alvarez, [place] - [facility] [employer] [facility] 3 13:41:32 Osteoarthr itis of hip 866142243 Active Not Available [facility] 3 03:06:38 Osteoarthr itis of knee 819097523 Active Not Available [facility] 3 03:06:38 Shoulder joint pain 068119124 Active Not Available [facility] 3 03:06:38 Enthesopat hy of hip region 67649251 Active Not Available [facility] 3 03:06:38 Osteoarthr itis 551555893 Active Not Available [facility] 3 03:06:38 Problem Notes None recorded. Procedures Surgical History Date Name Laterality Status Provider Name and Address Organization Details Recorded Time [facility]ste[facility] completed Not [facility] 02:55:10 Knee completed Not Available [facility] 02:55:10 Imaging Results None recorded. Procedure Notes None recorded. Medical Equipment None Reported. Allergies Allergen ID Allergen Name Allergen Category Reaction Reaction Severity Criticality Documentation Date Start Date Code Code System Note Provider Name and Address Organization Details Recorded Time 5898 codeine medicatio n hives Not available Not available 08/29/2022 2670 RxNorm Not Available [facility] 3 03:28:40 36863 tramadol medicatio n Not available Not available Not available 12/27/2022 16407 RxNorm MJ Alvarez null, [place] - [facility] 3 15:14:00 Medications Name Sig Start Date [...] suspension for injection in office 2023 active [facility]: 0003- 0494- 20 Not Available Not Available [...] administe red by the provider 11/30 completed [facility]: 0409- 4276- 17 Not Available Not Available [...] DateTime 07/04/2023 147.32 cm Aylin Walsh [employer] [facility] [employer] 07/04/2023 14:25:13 Date Recorded Body height Provider Name an d Address Organization Details Last Updated DateTime 09/27/2022 149.86 cm Aylin Walsh Bel[employer]ys [facility] [employer] [facility] 09/27/2022 13:41:05 Date Recorded Body height Body mass index (BMI) Body weight Provider Name and Address Organization Details Last Updated DateTime 12/27/2022 147.32 cm 33.9 kg/m2 26322.96 g AylinMJ Martin [facility] 12/27/2022 15:19:07 Date Recorded Body height Provider Name an d Address Organization Details Last Updated DateTime 04/04/2023 147.32 cm MJ Alvarez [facility] 04/04/2023 14:17:13 Date Recorded Body height Provider Name an d Address Organization Details Last Updated DateTime 05/31/2022 149.86 cm Not Available [facility] 02:55:43 Social History Question Answer Notes LastModified by Organizat ion Details LastModified Time Tobacco Smoking Status Never Smoker Not Available [facility] 08/29/2022 02:39:18 What Was The Date Of Your Most Recent Tobacco Screening? 09/15/2020 [id number] Information not available 08/29/2022 Sex: Unknown Functional Status None recorded. Mental Status None recorded. Family History Relationship Description Onset Age of this Age Resolved Age Notes LastModified by Organization Details LastModified Time Father Heart disease [id number] Not available 08/29/2022 02:55:11 Father Family history of stroke [id number].219 [id number] Not available 08/29/2022 02:55:11 Mother Heart disease [id number].839 [id number] Not available 08/29/2022 02:55:11 Mother Family history of stroke [id number].557 [id number] Not available 08/29/2022 02:55:11 Unspecified Relation Family history of malignant neoplasm MIGRATION.099 [id number] Not available 08/29/2022 02:55:11 Medical History Condition Response BLINDNESS N KIDNEY STONES N MRSA N CARPAL TUNNEL SYNDROME N LUNG DISEASE/DISORDER N HISTORY OF DRUG ABUSE N COPD N RADIATION / CHEMOTHERAPY N SPORTS INJURY N ANKLE PAIN N BLOOD DISEASES N SCHIZOPHRENIA N SHINGLES N BOWEL PROBLEMS N SHOULDER PAIN N DEPRESSION (INCLUDING POST ) N STROKE/TIA N ULCERS N KNEE PAIN [...] HAVE YOU BEEN HOSPITALIZED OR SEEN IN [facility] ER IN THE PAST YEAR ? [...] SNOMED-CT Code Diagnosis ICD10 Code Diagnosis Note [id number] MD BONI [facility] [address] [address] 09/15/2020 00:00:00 09/15/2020 15:49:10 [id number] MAYO Matthews[facility] [address] [address] 12/15/2020 00:00:00 12/15/2020 14:15:49 [id number] MD VANE [facility] [address] [address] 03/16/2021 00:00:00 03/16/2021 14:32:03 [id number] Mike Leslie MD [facility] [address] [address] 08/31/2021 00:00:00 08/31/2021 11:54:28 [id number] MAYO [facility] [address] [address] 11/30/2021 00:00:00 11/30/2021 15:38:46 [id number] Mike Anuj, MD [address] [address] 03/01/2022 00:00:00 03/01/2022 15:34:24 [id number] Mike Leslie MD [address] [address] 05/31/2022 00:00:00 05/31/2022 14:07:37 [id number] Mike Leslie MD [address] [address] 09/27/2022 13:37:37 09/27/2022 13:57:35 Bilateral osteoarthritis of knees 1933187031 91481 M17.0 [id number] Mike Leslie MD [address] [address] 12/27/2022 14:38:24 12/27/2022 16:24:11 Bilateral osteoarthritis of knees 2995742578 25334 M17.0 [id number] Mike Leslie MD [address] [address] 04/04/2023 14:14:48 04/04/2023 15:06:43 Bilateral osteoarthritis of knees 2460932241 00941 M17.0 [id number] Mike Leslie MD [address] [address] 07/04/2023 14:18:06 07/04/2023 14:42:28 Bilateral osteoarthritis of knees 5601407057 77969 M17.0 Health Concerns Section Related Observation LastModified by Organization Detai ls LastModified Time None Recorded Concern Status LastModified by Organization Details LastModified Time None Recorded Advance Directives Directive None Recorded Payers Insurance Date Sequence Insurance Name Policy Number Policy Lay Covered Member ID Lay Member ID Guarantor Name 12/23/2024 1 [place] Cyndi Shin [id number] Cyndi Shin 12/23/2024 2 [employer] [place] [employer] F Cyndi Shin [id number] Cyndi Shin OBGyn Episode No OBEpisode recorded.
--- OUTSIDE RECORDS SUMMARY | 2025-01-08 12:46 | XMS_ITS | Continuity of Care Document ---
Author Organization [facility] Address [address] [place] [address] Phone Care Team Providers Care Polystyrene Molding Machine Tender Name Role Phone Juan Maher Unavailable Unavailable [...] Diagnoses Date Provider Providers Copied on Encounter [facility], [address], [place], [place], [id number], [place] tel:[phone] [facility] No Information 201 0 Nika Martinez. [address], [place], [place], [facility], [place]. tel:[phone] [facility], [address], [place], [place], [id number], [place] tel:[phone] [facility] No Information 5-201 0 Alton Hernandez. [address] [place], [place], [facility], [place]. tel:[phone] Referring Provider: David Hardwick, [address] [place], [place], [facility]. tel:[phone] [facility], [address], [place], [place], [id number], [place] tel:[phone] [facility] No Information 6-201 0 Nika Martinez. [address], [place], [place], [facility], [place]. tel:[phone] [facility], [address], [place], [place], [id number], [place] tel:[phone] [facility] No Information 9 Alton Hernandez. [address] [place], [place], [facility], [place]. tel:[phone] Referring Provider: Juan Rizvi, [address], [place], [place], [facility]. tel:[phone] [facility], [address], [place], [place], [id number], [place] tel:[phone] [facility] No Information 8200 9 Nika Martinez. [address] [facility] , [address], [place], [place], [facility], [place]. tel:[phone] [facility], [address], [place], [place], [id number], [place] tel:[phone] [facility] No Information 9200 8 Alton Hernandez. [address] [place], [address], [place]. tel:[phone] Referring Provider: David Hardwick, [address] [place], [place], [facility]. tel:[phone] [facility], [address], [place], [place], [id number], [place] tel:[phone] [facility] [place] No Information Dec-0 3200 7 Nika Martinez. [address] [facility] [address], [place], [place], [facility], [place]. tel:[phone] [facility], [address], [place], [place], [id number], [place] tel:[phone] [facility] No Information 200 7 Alton Hernandez. [address] [place], [facility], [place]. tel:[phone] Office/outpat ient Visit, Est [facility], [address], [place], [place], [id number], [place] tel:[phone] [facility] No Information Feb-0 1200 7 Alton Hernandez. [address] [place], [facility], [place]. tel:[phone] Family History Family Member Type Diagnosis Age [...]
--- OUTSIDE RECORDS SUMMARY | 2025-01-08 12:46 | XMS_ITS | Referral Summary ---
Author Organization [facility] [address] Address [address] [place] [address] Care Team Providers Care Computer Systems Integrator Name Role Phone Zack Miller MD Primary [...] cardiomyopathy 03/17/2018 Coronary artery disease invo lving [place] coronary artery of [place] heart without angina pectoris 03/17/2018 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 diabetes mellitus (CMS/HCC) 03/17/2018 Stage 2 chronic kidney disease 03/17/2018 Social History Tobacco Use Types Packs/Day Years Used Date Smoking Tobacco: Never Smokeless Tobacco: Never Tobacco Cessation:Counseling Given: Not Answered Comments Unknown Sex and Gender Information Value Date Recorded Sex Assigned at Not on file 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 Gender Identity Not on file Sexual Orientation [...] 2:53 PM CDT Coronary artery disease involving [place] coronary artery of [place] heart without angina pectoris Mixed diabetic hyperlipidemia associated with type 2 diabetes mellitus (CMS/HCC) ([facility]) BASIC METABOLIC PANEL Routine 02/21/2018 9:58 AM [...] 3:11 AM CDT Performed at: 01 - [address] [id number] Fixture Maker: Jarrod Grace PhD, Phone: [phone] Desi Florian NP LAB BLOOD ORDERABLES Susan l Result [facility] 01 from Last 3 Months or Most Recently Relevant to Health Maintenance Insurance MEDICARE [facility] MEDICARE [facility] Care Teams Computer Systems Integrator Relationship Specialty Start Date End Date Zack Miller MD PCP - General Family Medicine 07/01/17
--- OUTSIDE RECORDS SUMMARY | 2025-01-08 12:46 | XMS_ITS | Encounter Summary ---
Author Organization [facility] [employer] [facility] [employer] [facility] Address [facility] [address] Phone Care Team Providers Care Supplemental Manager Name Role Phone Zack Miller MD Primary Care Provider [phone] Reason for Visit * Reason Onset Date Comments Med Refill Med Refill 01/26/2021 Encounter Details Date Type Department Care Team (Late st Contact Info) Description 01/24/2021 Refill [facility], [facility] [address] [place] [address] Emiliano Nagel DO [address] [address] Social History Tobacco Use Types [...] Description 04/13/2025 2:00 PM CDT Office Visit [facility], [facility] [address] [facility] 15 [place] [address] Emiliano Nagel DO 12[address] [facility] 1 [place] [address] documented as of this encounter Visit Diagnoses Not on filedocumented in this encounter Care Teams Supplemental Manager Relationship Specialty Start Date End Date Zack Miller MD [address] [address] PCP - General Family Medicine 05/16/21 documented as of this encounter
--- OUTSIDE RECORDS SUMMARY | 2025-01-08 12:46 | XMS_ITS | Clinical Summary ---
Author Organization [facility] José Miguel Sandoval Address [facility] [place] [address] Care Team Providers Care Monument Carver Name Role Phone Zack Miller MD Primary Care Provider [phone] Allergies Active Allergy Reactions Criticality Noted Date [...] 2020 INFLUENZA VACCINE (#1) 2025 Care Teams Monument Carver Relationship Specialty Start Date End Date Zack Miller MD [address] [place] [address] PCP - General Family Practice 01/19/20
--- OUTSIDE RECORDS SUMMARY | 2025-01-08 12:46 | XMS_ITS | Encounter Summary ---
Author Organization [facility] [employer] , [facility] Address [address] [facility] [place] [address] Phone Care Team Providers Care Launching Pad Mechanic Name Role Phone Zack Miller MD Primary Care Provider [phone] Reason for Visit * Reason Comments Med Refill Encounter Details Date Type Department Care Team (Late st Contact Info) Description 02/19/2023 Refill [facility], [facility] [address] [place] [address] 1 [place] [address] Emiliano Nagel DO 12[address] [facility] 1 [place] [address] Social History Tobacco Use Types [...] Description 04/13/2025 2:00 PM CDT Office Visit [facility], [facility] [address] [facility] 15 [place] [address] Emiliano Nagel DO 12[address] [facility] 1 [place] [address] documented as of this encounter Visit Diagnoses Not on filedocumented in this encounter Care Teams Launching Pad Mechanic Relationship Specialty Start Date End Date Zack Miller MD [address] [place] [address] PCP - General Family Medicine 05/16/21 documented as of this encounter
--- OUTSIDE RECORDS SUMMARY | 2025-01-08 12:46 | XMS_ITS | Clinical Summary ---
Author Organization [facility] Address [address] [place] [address] Phone Care Team Providers Care Data Center Consultant Name Role Phone Unavailable Primary Care Provider [...]
== END 2025-01-08 12:42 | disposition home or self-care (01) ==
PROVIDERS: PCP Family Medicine; Visit Provider Physician Assistant Medical
DX: H90.3 Sensorineural hearing loss, bilateral (principal); H93.13 Tinnitus, bilateral; H54.62 Unqualified visual loss, left eye, normal vision right eye; H93.8X1 Other specified disorders of right ear; H61.21 Impacted cerumen, right ear; Z92.21 Personal history of antineoplastic chemotherapy
CPT/HCPCS: 92557; 92567

== ENCOUNTER 2025-01-13 09:27 | Outpatient (CLI) | payer MEDICARE, SELFPAY ==
--- NOTE | ~2025-01-13 | MR_ITS ---
MRI of the lumbar spine Clinical History: Back pain, sciatica Technique: Axial T2-weighted images, and sagittal T1-weighted, T2-weighted, and T2 fat-sat images wer e acquired. Findings: No fracture seen in the lumbar spine. There is 3 mm retrolisthesis of L3 over L4. There is 3 mm anterolisthesis of L4 over L5. No suspicious bone marrow signal abnormality seen. At L1-L2, there is minimal disc bulge with moderate facet arthropathy. No central canal stenosis or n eural foraminal narrowing. At L2-L3, there is moderate degenerative disc narrowing. There is mild disc bulge with moderate facet arthropathy. No central canal stenosis or definite neural foraminal narrowing. At L3-L4, there is diffuse disc bulge with moderate to advanced facet arthropathy. There is mild to m oderate central canal stenosis. There is severe bilateral neural foraminal narrowing. At L4-L5, there is diffuse disc bulge with severe facet arthropathy, and moderate to severe spinal ca nal stenosis. There is moderate to advanced left neural foraminal narrowing, and moderate right neura l foraminal narrowing. At L5-S1, there is diffuse disc bulge with advanced facet arthropathy. No central canal stenosis. The re is severe bilateral neural foraminal narrowing. Paravertebral soft tissues are unremarkable. Impression: Severe degenerative spondylosis throughout the lumbar spine, as detailed above. Findings are probably worst at L4-L5. Grade 1 listheses, as above. Reviewed, dictated and finalized at [facility]. Impression: Severe degenerative spondylosis throughout the lumbar spine, as detailed above. Findings are probably worst at L4-L5. Grade 1 listheses, as above.
== END 2025-01-13 09:28 | disposition home or self-care (01) ==
LOC: MICIMG 09:28
PROVIDERS: PCP Family Medicine; Visit Provider Orthopaedic Surgery
DX: M54.40 Lumbago with sciatica, unspecified side (principal); M43.06 Spondylolysis, lumbar region
CPT/HCPCS: 72148

== ENCOUNTER 2025-04-05 13:53 | Outpatient (CLI) | payer MEDICARE, SELFPAY ==
--- OUTSIDE RECORDS SUMMARY | 2010-02-15 10:15 | XMS_ITS | Continuity of Care Document ---
Author Organization [facility] Address [address] [place] [address] Phone Care Team Providers Care Charge Gang Weigher Name Role Phone Juan Maher Unavailable Unavailable Procedures Procedure Date Eye Exam & Treatment Refraction Eye Exam Established Pt Ophthalmoscopy, Subsequent Ophthalmoscopy, Subsequent Special Reports Or Forms Eye Exam Established Pt Ophthalmoscopy, Subsequent Ophthalmoscopy, Subsequent Eye Exam & Treatment Eye Exam Established Pt Ophthalmoscopy, Subsequent Ophthalmoscopy, Subsequent Eye Exam & Treatment Refraction Eye Exam Established Pt Ophthalmoscopy, Subsequent Ophthalmoscopy, Subsequent Office/outpatient Visit, Est Ophthalmoscopy, Subsequent Ophthalmoscopy, Subsequent Advance Directives Directive Yes / No Effective Date File Name No Information Encounters Encounter Description Practice Location Reason(s) For Visit Diagnoses Date Provider Providers Copied on Encounter [facility], [address], [place], [place], [id number], [place] tel:[phone] [facility] No Information 201 0 Nika Martinez. [address], [place], [place], [facility] [place][note 2], [place]. tel:[phone] [facility], [address], [place], [place], [id number], [place] tel:[phone] [facility] No Information 5-201 0 Alton Hernandez. [address] [place], [place], [facility] [place][note 2], [place]. tel:[phone] Referring Provider: David Hardwick, [address] [place], [place], [facility] [place][note 2]. tel:[phone] [facility], [address], [place], [place], [id number], [place] tel:[phone] [facility] No Information 6-201 0 Nika Martinez. [address], [place], [place], [facility] [place][note 2], [place]. tel:[phone] [facility], [address], [place], [place], [id number], [place] tel:[phone] [facility] No Information 9 Alton Hernandez. [address] [place], [place], [facility] [place][note 2], [place]. tel:[phone] Referring Provider: Juan Rizvi, [address], [place], [place], [facility] [place][note 2]. tel:[phone] [facility], [address], [place], [place], [id number], [place] tel:[phone] [facility] No Information 8200 9 Nika Martinez. [address], [place], [place], [facility] [place][note 2], [place]. tel:[phone] [facility], [address], [place], [place], [id number], [place] tel:[phone] [facility] No Information 9200 8 Alton Hernandez. [address] [place], [address], [place]. tel:[phone] Referring Provider: David Hardwick, [address] [place], [facility] [place][note 2]. tel:[phone] [facility], [address], [place], [place], [address], [place] tel:[phone] [facility] [place] No Information Dec-0 3200 7 Nika Martinez. [address], [place], [place], [facility] [place][note 2], [place]. tel:[phone] [facility], [address], [place], [place], [id number], [place] tel:[phone] [facility] No Information 200 7 Alton Hernandez. [address] [place], [facility] [place][note 2], [place]. tel:[phone] Office/outpat ient Visit, Est [facility], [address], [place], [place], [address], [place] tel:[phone] [facility] No Information Feb-0 1200 7 Alton Hernandez. [address] [place], [facility] [place][note 2], [place]. tel:[phone] Family History Family Member Type Diagnosis Age At Onset No Information Payers Payer name Insurance type Covered green party ID Authoriza tion(s) No Information Social History Type Description Quantity Date Captured Comments Sex Female Smoking Status No Information Chief Complaint And Reason For Visit No Information Reason For Referral Reason For Referral No Information History Of Present Illness Encounter Date Complaint History Of Prese nt Illness No Information Functional Status Date Functional Assessmen t No Information Instructions Date Instruction Additional Infor mation No Information Assessments Type Assessment Date No Information Patient Care Teams Name Effective Dates (start - stop) Status Members No Information
[2025-04-05 14:33] LABS: Hematocrit 34.6 % (37.0-47.0); Hemoglobin 11.1 g/dL (12.0-15.0); Immature Platelet Fraction Pct 9.3 % (0.9-11.2); Mean Corpuscular HGB Conc 32.1 g/dl (32-36); Mean Corpuscular Hemoglobin 35.4 pg (26-34); Mean Corpuscular Volume 110.2 fl (80-100); Platelet Count Result 137 k/mm3 (150-375); Red Blood Count 3.14 M/mm3 (4.2-5.4); White Blood Count 7.5 K/mm3 (4.5-10.0)
[2025-04-05 14:41] LABS: Albumin Level 3.9 g/dL (3.5-5.1); Anion Gap 7 mmol/L (4-12); Blood Urea Nitrogen 60 mg/dL (7-17); Calcium 9.5 mg/dL (8.4-10.2); Carbon Dioxide 26 mmol/L (22-30); Chloride 106 mmol/L (98-107); Estimated Glomerular Filt Rate 44; Glucose 87 mg/dL (65-110); Magnesium 2.2 mg/dL (1.6-2.3); Potassium 4.9 mmol/L (3.4-5.0); Sodium 139 mmol/L (137-145)
[2025-04-05 14:47] LABS: Total Protein Urine Random 8 mg/dL; Ur Ttl Prot Creatinine Ratio 0.15 mg/mg (0-0.20)
[2025-04-05 14:48] LABS: MALB Creatinine Ratio 13.9 mg/g (0-30)
--- OUTSIDE RECORDS SUMMARY | 2025-04-05 14:54 | XMS_ITS | Encounter Summary ---
Author Organization [facility] [employer] [facility] [employer] [facility] Address [facility] [address] Phone Care Team Providers Care Power Driven Brush Maker Name Role Phone Zack Miller MD Primary Care Provider [phone] Reason for Visit * Reason Onset Date Comments Med Refill Med Refill 01/26/2021 Encounter Details Date Type Department Care Team (Late st Contact Info) Description 01/24/2021 Refill [place] [email or web address] [facility], [facility] [address] [place] [address] Emiliano Nagel DO [address] [address] Social History Tobacco Use Types [...] Description 04/13/2025 2:00 PM CDT Office Visit [place] [email or web address] [facility], [facility] 20[address] [facility] 15 [place] [address] Emiliano Nagel DO 1265 [facility] 1 [place] [address] documented as of this encounter Visit Diagnoses Not on filedocumented in this encounter Care Teams Power Driven Brush Maker Relationship Specialty Start Date End Date Zack Miller MD [address] [place] [address] PCP - General Family Medicine 05/16/21 documented as of this encounter
--- OUTSIDE RECORDS SUMMARY | 2025-04-05 14:54 | XMS_ITS | Data Portability ---
Author Organization [place] [facility], Main Office Address 1 [place] [address] Care Team Providers Care Tracer Bullet Section Supervisor Name Role Phone DON HECTOR Primary Care Provider DON HECTOR Referring Provider [phone] Assessment Encounter Date Assessment Date Assessment LastModified [...] procedure, administere d by provider 2023 024 [email or web address] In-Office Order, Internal Use Only DO Not Attach Compendium DO Not Attach Compendium, Do Not Delete/merge, [id number] 4 14:27:00 injection/a spiration joint/bursa (PROC) - in office procedure, administere d by provider 2022 023 [email or web address] In-Office Order, Internal Use Only DO Not Attach Compendium DO Not Attach Compendium, Do Not Delete/merge, [id number] 3 14:18:31 injection/a spiration joint/bursa (PROC) - in office procedure, administere d by provider 2022 023 [email or web address] In-Office Order, Internal Use Only DO Not Attach Compendium DO Not Attach Compendium, Do Not Delete/merge, [id number] 3 14:42:41 injection/a spiration joint/bursa (PROC) - in office procedure, administere d by provider 2022 023 [email or web address] In-Office Order, Internal Use Only DO Not Attach Compendium DO Not Attach Compendium, Do Not Delete/merge, 3 13:42:41 Surgeries None recorded. Imaging XR, knee 2022 023 [email or web address] [facility], [address] [place] [address], [address], [place], [address], 3 16:24:11 Medication Orders Kenalog 10 mg/mL suspension for injection [address] [facility] [facility], [address] [place] [address], [address], 4 14:49:53 ropivacaine (PF) 5 mg/mL (0.5 %) injection solution [address] [facility], [address] [place] [address], [address], 4 14:49:53 Kenalog 10 mg/mL suspension for injection [address] [facility], [address] [place] [address], [address], 3 10:07:11 ropivacaine (PF) 5 mg/mL (0.5 %) injection solution [address] [facility], [address] [place] [address], [address], 3 10:07:11 Kenalog 10 mg/mL suspension for injection [address] [facility], [address] [place] [address], [address], 3 12:20:02 ropivacaine (PF) 5 mg/mL (0.5 %) injection solution [address] [facility], [address] [place] [address], [address], 3 12:20:02 Kenalog 10 mg/mL suspension for injection 2022 023 [email or web address] 3 14:07:34 ropivacaine (PF) 5 mg/mL (0.5 %) injection solution 2022 023 [email or web address] Not available 3 14:07:34 Patient TargetsNo targets recorded. Patient InstructionsNo instructions recorded. Reason for Referral None Reported. Results Created Date Observation Date Name Description Value Unit Range Abnormal Flag Note LastModifiedBy Organization Detail LastModifiedTime 12/28/19 23 XR, knee No observ ation record ed. [facility] [address], [address], [place], [address], 12/27/2022 15:50:32 Result Notes None recorded. Problems Name Problem SNOMED Code Status Onset Date Resolution Date Notes Provider Name and Address Organization Details Recorded Time Osteoarthr itis of hip 923533165 Active Not Available [facility] 3 03:06:38 Osteoarthr itis of knee 906225886 Active Not Available [facility] 3 03:06:38 Shoulder joint pain 428911978 Active Not Available [facility] 3 03:06:38 Enthesopat hy of hip region 71194084 Active Not Available [facility] 3 03:06:38 Osteoarthr itis 869412770 Active Not Available [facility] 3 03:06:38 Bilateral osteoarthr itis of knees 3288893779324 07 Active 2022 MJ Alvarez[place] [employer] [facility] 3 13:41:32 Problem Notes None recorded. Procedures Surgical History Date Name Laterality Status Provider Name and Address Organization Details Recorded Time Hysterectomy completed Not Available [facility] 08/29/2022 02:55:10 Knee completed Not Available [facility] 07/2022 02:55:10 Imaging Results None recorded. Procedure Notes None recorded. Medical Equipment None Reported. Allergies Allergen ID Allergen Name Allergen Category Reaction Reaction Severity Criticality Documentation Date Start Date Code Code System Note Provider Name and Address Organization Details Recorded Time 5898 codeine medicatio n hives Not available Not available 08/29/2022 2670 RxNorm Not Available [facility] 3 03:28:40 80428 tramadol medicatio n Not available Not available Not available 12/27/2022 59936 RxNorm MJ Alvarez[place] [employer] [facility] 3 15:14:00 Medications Name Sig Start [...] suspension for injection in office 2023 active [facility]: 0003- 0494- 20 Not Available Not Available [...] administe red by the provider 11/30 completed [facility]: 0409- 4276- 17 Not Available Not Available [...] Details Last Updated DateTime 07/04/2023 147.32 cm MJ Alvarez [employer] 07/04/2023 14:25:13 Date Recorded Body height Provider Name an d Address Organization Details Last Updated DateTime 09/27/2022 149.86 cm MJ Alvarez [facility] [employer] [facility] 09/27/2022 13:41:05 Date Recorded Body height Body mass index (BMI) Body weight Provider Name and Address Organization Details Last Updated DateTime 12/27/2022 147.32 cm 33.9 kg/m2 24907.96 g MJ Alvarez - [facility] [place] [employer] [facility] 12/27/2022 15:19:07 Date Recorded Body height Provider Name an d Address Organization Details Last Updated DateTime 04/04/2023 147.32 cm [facility] 04/04/2023 14:17:13 Date Recorded Body height Provider Name an d Address Organization Details Last Updated DateTime 05/31/2022 149.86 cm Not Available [facility] 02:55:43 Social History Question Answer Notes LastModified by Organizat ion Details LastModified Time Tobacco Smoking Status Never Smoker Not Available [facility] 08/29/2022 02:39:18 What Was The Date Of Your Most Recent Tobacco Screening? 09/15/2020 [id number] Information not available 08/29/2022 Sex: Unknown Functional Status None recorded. Mental Status None recorded. Family History Relationship Description Onset Age of this Age Resolved Age Notes LastModified by Organization Details LastModified Time Father Heart disease [id number] Not available 08/29/2022 02:55:11 Father Family history of stroke MIGRATION.066 [id number] Not available 08/29/2022 02:55:11 Mother Heart disease [id number].322 [id number] Not available 08/29/2022 02:55:11 Mother Family history of stroke [id number].094 [id number] Not available 08/29/2022 02:55:11 Unspecified Relation Family history of malignant neoplasm MIGRATION.991 [id number] Not available 08/29/2022 02:55:11 Medical History Condition [...] HAVE YOU BEEN HOSPITALIZED OR SEEN IN [facility] IN THE PAST YEAR ? N BURSITIS [...] Diagnosis SNOMED-CT Code Diagnosis ICD10 Code Diagnosis IMO Codes Diagnosis Note [id number] Mike Leslie MD [facility] [address] [address] 09/15/2020 00:00:00 09/15/2020 15:49:10 [id number] MAYO Matthews_Rebeka [address] [address] 12/15/2020 00:00:00 12/15/2020 14:15:49 [id number] MD VANE Torres_GMRebeka [address] [address] 03/16/2021 00:00:00 03/16/2021 14:32:03 [id number] MD JESE TorresGMRebeka [address] [address] 08/31/2021 00:00:00 08/31/2021 11:54:28 [id number] MAYO Matthews_GMRebeka [address] [address] 11/30/2021 00:00:00 11/30/2021 15:38:46 [id number] Mike Leslie MD [place] [address] 03/01/2022 00:00:00 03/01/2022 15:34:24 [id number] Mike Leslie MD [place] [address] 05/31/2022 00:00:00 05/31/2022 14:07:37 [id number] Mike Leslie [place] [address] 09/27/2022 13:37:37 09/27/2022 13:57:35 Bilateral osteoarthritis of knees 5788978837 20806 M17.0 [id number] Mike Leslie MD [place] [address] 12/27/2022 14:38:24 12/27/2022 16:24:11 Bilateral osteoarthritis of knees 8829516362 94291 M17.0 [id number] Mike Leslie MD [place] [address] 04/04/2023 14:14:48 04/04/2023 15:06:43 Bilateral osteoarthritis of knees 4131785781 33426 M17.0 [id number] Mike Leslie MD [place] [address] 07/04/2023 14:18:06 07/04/2023 14:42:28 Bilateral osteoarthritis of knees 8124964364 65628 M17.0 Health Concerns Section Related Observation LastModified by Organization Detai ls LastModified Time None Recorded Concern Status LastModified by Organization Details LastModified Time None Recorded Advance Directives Directive None Recorded Payers Insurance Date Sequence Insurance Name Policy Number Policy Lay Covered Member ID Lay Member ID Guarantor Name 12/23/2024 1 [place] Cyndi Shin [id number] Cyndi Shin 12/23/2024 2 [employer] [place] [employer] F Cyndi Shin [id number] Cyndi Shin OBGyn Episode No OBEpisode recorded.
--- OUTSIDE RECORDS SUMMARY | 2025-04-05 14:54 | XMS_ITS | Clinical Summary ---
Author Organization [facility] José Miguel Sandoval Address [facility] [address] [address] Care Team Providers Care Cycle Liaison Name Role Phone Zack Miller MD Primary Care Provider [phone] Allergies Active Allergy Reactions Criticality Noted Date [...] 2020 INFLUENZA VACCINE (#1) 2025 Care Teams Cycle Liaison Relationship Specialty Start Date End Date Zack Miller MD [address] [place] [address] PCP - General Family Practice 01/19/20
--- OUTSIDE RECORDS SUMMARY | 2025-04-05 14:54 | XMS_ITS | Encounter Summary ---
Author Organization [facility] [employer] , [facility] Address [address] [facility] [place] [address] Phone Care Team Providers Care Cdl A Driver Name Role Phone Zack Miller MD Primary Care Provider [phone] Reason for Visit * Reason Comments Med Refill Encounter Details Date Type Department Care Team (Late st Contact Info) Description 02/19/2023 Refill [facility], [facility] [address] [place] [address] 1 [place] [address] Emiliano Nagel DO 1265 [facility] 1 [place] [address] Social History Tobacco Use Types [...] Description 04/13/2025 2:00 PM CDT Office Visit [facility], [facility] 20[address] [facility] 15 [place] [address] Emiliano Nagel DO 1265 [facility] 1 [place] [address] documented as of this encounter Visit Diagnoses Not on filedocumented in this encounter Care Teams Cdl A Driver Relationship Specialty Start Date End Date Zack Miller MD [address] [address] PCP - General Family Medicine 05/16/21 documented as of this encounter
--- OUTSIDE RECORDS SUMMARY | 2025-04-05 14:54 | XMS_ITS | Clinical Summary ---
Author Organization [facility] Address [address] [place] [address] Phone Care Team Providers Care Channel Development Director Name Role Phone Unavailable Primary Care Provider [...]
--- OUTSIDE RECORDS SUMMARY | 2025-04-05 14:54 | XMS_ITS | Clinical Summary ---
Author Organization [facility] [address] Address [address] [place] [address] Care Team Providers Care Router Tender Name Role Phone Zack Miller MD Primary [...] MOUTH EVERY 12 HOURS 180 tablet 3 5 Active olmesartan (BENICAR) 5 mg tablet Take 1 tablet (5 mg total) by mouth daily 5 Active Gemtesa 75 mg tablet Take 75 mg by mouth daily 5 Active Active Problems Problem Noted Date Diagnosed Date Allergy to iodinated contrast media 11/21/2023 Chronic heart failure with preserved ejection fr action 09/01/2021 SOB (shortness of breath) 09/30/2020 Aortic stenosis 09/30/2020 Pulmonary HTN 03/24/2020 Hypertension associated with diabetes 10/14/2018 H/O cardiomyopathy 10/14/2018 Nonischemic cardiomyopathy 03/17/2018 Coronary artery disease invo lving umkumiut coronary artery of umkumiut heart without angina pectoris 03/17/2018 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 diabetes mellitus (CMS/HCC) 03/17/2018 Stage 2 chronic kidney disease 03/17/2018 Encounters Date Type Department Care Team Description 03/16/2025 2:00 PM CDT Office Visit [facility] [address] [place] [address] José Miguel Vallejo MD Nonischemic cardiomyopathy (HCC) (Primary Dx); Mixed diabetic hyperlipidemia associated with type 2 diabetes mellitus (CMS/HCC) (HCC); Hypertension associated with diabetes (HCC); Coronary artery disease involving umkumiut coronary artery of umkumiut heart without angina pectoris from Last 3 Months Medical History Medical History Date Comments Hypertension Coronary artery disease Diabetes mellitus Family History Medical History Relation Name Comments No Known Problems Father No Known Problems Mother Relation Name Status Comments Father Mother Social History Tobacco Use Types Packs/Day Years Used Date Smoking Tobacco: Never Smokeless Tobacco: Never Tobacco Cessation:Counseling Given: Not Answered Comments Unknown Sex and Gender Information Value Date Recorded Sex Assigned at Not on file Legal Sex Female 9:30 AM [employer] Gender Identity Not on file Sexual Orientation Not on file Obstetrics History Last Filed Vital Signs Vital Sign Reading Time Taken Comments Blood Pressure 124/60 03/16/2025 1:42 PM CDT Pulse 71 03/16/2025 1:42 PM CDT Temperature 36.6 C (97.8 F) 03/25/2020 10:08 AM CDT Respiratory Rate 16 12/30/2017 2:20 PM CDT Oxygen Saturation 98% 03/16/2025 1:42 PM CDT Inhaled Oxygen Concentration - - Weight 74.8 kg (165 lb) 03/16/2025 1:42 PM CDT Height 152.4 cm (5') 03/16/2025 1:42 PM CDT Body Mass Index 32.22 03/16/2025 1:42 PM CDT Plan of Treatment Health Maintenance Due Date Last Done Comments Albumin Creatinine Ratio, Urine 1945 Depression Screening 1945 Fall Risk Assessment 1945 Hemoglobin A1C 1945 Hepatitis C Screening 1945 Osteoporosis Screening-Bone Density Scan 1945 Dilated Eye Exam 1945 Foot Exam 1945 DTaP/Tdap/Td Vaccine (1 - Tdap) 1956 Hepatitis B Screening 1963 Zoster Vaccine (1 of 2) 1995 Well Visit 65+ 2010 eGFR 02/21/2019 02/21/2018, 12/29, 12/16/2017 Lipid Panel 10/23/2023 10/22/2022, 03/09/2021, 03/24/2020, Additional history exists Influenza Vaccine (#1) 2025 8, 04/05/2017, 04/16/2016, Additional history exists Pneumococcal vaccine 65+ Completed 05/05/2020, 04/01 Procedures Procedure Name Priority Date/Time Associated Diagnosis Comments POCT LIPID PANEL Routine 10/22/2022 2:53 PM CDT Coronary artery disease involving umkumiut coronary artery of umkumiut heart without angina pectoris Mixed diabetic hyperlipidemia [...] Basic metabolic panel (02/21/2018 9:58 AM CDT) [facility] Glucose 79 65 - 99 mg/dL [facility] [...] 3:11 AM CDT Performed at: 01 - [facility] [address] [id number] Power Barker Operator: Jarrod Grace PhD, Phone: [phone] us Desi Florian NP LAB BLOOD ORDERABLES Susan l Result [facility] - 01 from Last 3 Months or Most Recently Relevant to Health Maintenance Insurance MEDICARE MEDICARE BLUE CROSS MEDICARE SUPPLEMENT Care Teams Router Tender Relationship Specialty Start Date End Date Zack Miller MD PCP - General Family Medicine 07/01/17
--- OUTSIDE RECORDS SUMMARY | 2025-04-05 14:54 | XMS_ITS | Encounter Summary ---
Author Organization [facility] [employer] [facility] Address [address] [facility] [place] [address] Phone Care Team Providers Care Kitchen Hand Name Role Phone Zack Miller MD Primary Care Provider [phone] Reason for Visit * Reason Comments Med Refill Encounter Details Date Type Department Care Team (Late st Contact Info) Description 05/27/2024 [facility] [facility] [address] [phone] Emiliano Nagel DO 12[address] [facility] 1 [place] [address] Social History Tobacco Use Types [...] Description 04/13/2025 2:00 PM CDT Office Visit [employer] [facility] [address] [phone] Emiliano Nagel DO [facility] [facility] 1 [place] [address] documented as of this encounter Visit Diagnoses Not on filedocumented in this encounter Care Teams Kitchen Hand Relationship Specialty Start Date End Date Zack Miller MD [address] [place] [address] PCP - General Family Medicine 05/16/21 documented as of this encounter
--- OUTSIDE RECORDS SUMMARY | 2025-04-05 14:54 | XMS_ITS | Clinical Summary ---
Author Organization [facility] Address [address] [place] [address] Care Team Providers Care Sound Technician Name Role Phone Zack Miller MD Primary Care Provider [phone] Medications chlorthalidone 25 MG tablet TAKE 1 TABLET BY MOUTH ONCE DAILY IN THE MORNING 90 tablet 3 5 Active oxybutynin XL (DITROPAN-XL) 10 MG 24 hr tablet Take 1 tablet (10 mg total) by mouth 1 (one) time each day Do not crush, chew, or split. 30 tablet 5 5 Active MAGnesium-Oxid e 400 (240 Mg) MG tablet TAKE 1 TABLET BY MOUTH ONCE DAILY IN THE MORNING 90 tablet 5 Active olmesartan (BENICAR) 5 MG tablet TAKE 2 TABLETS BY MOUTH AT BEDTIME 180 tablet 5 Active amLODIPine (NORVASC) 5 MG tablet TAKE 1 TABLET BY MOUTH AT BEDTIME 90 tablet 5 Active olmesartan (BENICAR) 5 MG tablet TAKE 2 TABLETS BY MOUTH AT BEDTIME 180 tablet 5 03/09/20 25 Discontinued amLODIPine (NORVASC) 5 MG tablet TAKE 1 TABLET BY MOUTH AT BEDTIME 90 tablet 5 03/09/20 25 Discontinued olmesartan (BENICAR) 5 MG tablet TAKE 2 TABLETS BY MOUTH AT BEDTIME 180 tablet 5 03/10/20 25 Discontinued amLODIPine (NORVASC) 5 MG tablet TAKE 1 TABLET BY MOUTH AT BEDTIME 90 tablet 09/03/10/20 25 Discontinued Encounters Date Type Department Care Team Description 03/10/2025 Refill [facility] [address] [phone] Emiliano Nagel, 03/09/2025 Refill [facility] [address] [phone] Emiliano Nagel, 02/21/2025 Refill [facility] [address] [address] Emiliano Nagel, 01/08/2025 Office Communication [address] [address] Emiliano Nagel DO 01/05/2025 3:00 PM CDT Office Visit [facility] [address] [address] Emiliano Nagel DO Stage 3b chronic kidney disease (HCC) (Primary Dx); Coronary artery disease due to calcified coronary lesion; Diastolic dysfunction; Hypertensive chronic kidney disease; Type 2 diabetes mellitus with diabetic chronic kidney disease (HCC); Pure hypercholesterolemi a, not otherwise specified; Monoclonal gammopathy of undetermined significance (MGUS) 01/05/2025 Refill [facility] [address] [address] Aria Jackson CMA 01/05/2025 Documentation Only [address] [address] Emiliano Nagel DO from Last 3 Months [...] Description 04/13/2025 2:00 PM CDT Office Visit [facility], [facility] 20[address] [facility] 15 [place] [address] [place] [address] [place] [address] 1 [place] [address] Health Maintenance Due Date Last Done Comments Diabetes: Hemoglobin A1C 11/24/2020 Diabetes: Ophthalmology Exam 11/24/2020 Diabetes: Pedal Pulse Checked 11/24/2020 Diabetes: Sensory Foot Exam 11/24/2020 Diabetes: Visual Foot Exam 11/24/2020 Influenza Vaccine (#1) 2025 8, 04/05/2017, 04/16/2016, Additional history exists Pneumococcal Vaccine: 50+ Years Completed 05/05/2020, 04/20/2014 Hepatitis B Vaccine Aged Out No longe r eligible based on patient's age to complete this topic Insurance Medicare [facility] Care Teams Sound Technician Relationship Specialty Start Date End Date Zack Miller MD [address] [address] PCP - General Family Medicine 05/16/21
[2025-04-05 14:58] LABS: Parathyroid Intact 120.7 pg/mL (14.5-75.2)
[2025-04-06 07:09] LABS: eGFR 24 (>59)
== END 2025-04-05 13:54 | disposition home or self-care (01) ==
LOC: ANHLAB 14:03
PROVIDERS: PCP Family Medicine; Visit Provider Internal Medicine Nephrology
DX: I12.9 Hypertensive chronic kidney disease with stage 1 through stage 4 chronic kidney disease, or unspecified chronic kidney disease (principal); E11.22 Type 2 diabetes mellitus with diabetic chronic kidney disease; N18.32 Chronic kidney disease, stage 3b; I25.84 Coronary atherosclerosis due to calcified coronary lesion; I51.9 Heart disease, unspecified; E78.00 Pure hypercholesterolemia, unspecified; D47.2 Monoclonal gammopathy
CPT/HCPCS: 36415; 80069; 82043; 82306; 82570; 82610; 83735; 83970; 84156; 85027; 85055

== ENCOUNTER 2025-06-09 11:31 | Outpatient (CLI) | payer MEDICARE, SELFPAY ==
[2025-06-09 12:39] LABS: Albumin Level 4.3 g/dL (3.5-5.1); Anion Gap 8 mmol/L (4-12); Blood Urea Nitrogen 56 mg/dL (7-17); Calcium 10.3 mg/dL (8.4-10.2); Carbon Dioxide 25 mmol/L (22-30); Chloride 106 mmol/L (98-107); Estimated Glomerular Filt Rate 49; Glucose 80 mg/dL (65-110); Magnesium 1.9 mg/dL (1.6-2.3); Potassium 4.9 mmol/L (3.4-5.0); Sodium 139 mmol/L (137-145)
[2025-06-09 13:15] LABS: Ferritin 69.70 ng/mL (11.1-264)
[2025-06-10 07:09] LABS: eGFR 27 (>59)
== END 2025-06-09 11:32 | disposition home or self-care (01) ==
PROVIDERS: PCP Family Medicine; Visit Provider Internal Medicine Nephrology
DX: I12.9 Hypertensive chronic kidney disease with stage 1 through stage 4 chronic kidney disease, or unspecified chronic kidney disease (principal); E11.22 Type 2 diabetes mellitus with diabetic chronic kidney disease; I51.9 Heart disease, unspecified; N18.32 Chronic kidney disease, stage 3b; I25.84 Coronary atherosclerosis due to calcified coronary lesion; E78.00 Pure hypercholesterolemia, unspecified; D47.2 Monoclonal gammopathy; E11.65 Type 2 diabetes mellitus with hyperglycemia; Z79.84 Long term (current) use of oral hypoglycemic drugs
CPT/HCPCS: 36415; 80069; 82610; 82728; 83735